=== PATIENT | male | born 1960 | race Caucasian/White ===

== ENCOUNTER → 2016-08-29 | Outpatient (REF) | payer BC, OTHER ==
[~2016-08-29] MED LIST: ASPI1TAB PO; ATOR1TAB18 PO; CELE-19 PO; HYDR-2808 PO; IBUP600T; MULTIVIT PO; OMEP40CA2 PO; PAIN325T OR; PERC5TAB8 OR; PRIL40CA OR; ZOCO40TA OR
[2016-08-29 12:44] LABS: ALBUMIN 4.3 GM/DL (3.2-5.2); ALBUMIN/GLOBULIN RATIO 1.39 (1.00-1.93); ALKALINE PHOSPHATASE 79 U/L (45-117); ALT/SGPT 62 U/L (12-78); ANION GAP 10 MEQ/L (8-16); AST/SGOT 25 U/L (15-37); BILIRUBIN,TOTAL 0.5 MG/DL (0.2-1.0); BLOOD UREA NITROGEN 18 MG/DL (7-18); CALCIUM LEVEL 9.3 MG/DL (8.5-10.1); CARBON DIOXIDE LEVEL 29 MEQ/L (21-32); CHLORIDE LEVEL 104 MEQ/L (98-107); CHOLESTEROL LEVEL 180 MG/DL (<200); CREATININE FOR GFR 0.95 MG/DL (0.70-1.30); GLOMERULAR FILTRATION RATE > 60.0 (>56); GLUCOSE, FASTING 86 MG/DL (70-105); SODIUM LEVEL 143 MEQ/L (136-145); TOTAL PROTEIN 7.4 GM/DL (6.4-8.2); TRIGLYCERIDES LEVEL 107 MG/DL (<150)
== END ==
LOC: M SFHCPLAZ 07:51
PROVIDERS: ATTEND Family Medicine
DX: E78.2 Mixed hyperlipidemia (principal)

== ENCOUNTER → 2017-03-26 | Outpatient (REF) | payer BC ==
[~2017-03-26] MED LIST changes: -ATOR1TAB18 PO; +ATOR80TA59 PO; -CELE-19 PO; +CELE1CAP4 PO
[2017-03-26 14:05] LABS: BASO # 0.1 10^3/uL (0.0-0.2); BASO % 0.9 % (0.0-1.0); EOS # 0.1 10^3/uL (0.0-0.50); EOS % 1.3 % (0.0-3.0); IMMATURE GRANULOCYTE % 0.7 % (0-0); LYMPH # 2.2 10^3/uL (1.5-4.5); LYMPH % 28.6 % (24.0-44.0); MEAN CORPUSCULAR HEMOGLOBIN 28.7 pg (27.0-33.0); MEAN CORPUSCULAR HGB CONC 32.2 g/dl (32.0-36.5); MEAN CORPUSCULAR VOLUME 89.4 fl (80.0-96.0); MONO # 0.7 10^3/uL (0.0-0.8); MONO % 9.2 % (0.0-5.0); NEUTROPHILS # 4.6 10^3/uL (1.8-7.7); NEUTROPHILS % 59.3 % (36.0-66.0); PLATELET COUNT, AUTOMATED 304 10^3/uL (150-450); RED CELL DISTRIBUTION WIDTH 12.9 % (11.5-14.5); WHITE BLOOD COUNT 7.7 10^3/uL (4.0-10.0)
[2017-03-26 14:35] LABS: ALBUMIN 4.2 GM/DL (3.2-5.2); ALBUMIN/GLOBULIN RATIO 1.31 (1.00-1.93); ALKALINE PHOSPHATASE 75 U/L (45-117); ALT/SGPT 57 U/L (12-78); ANION GAP 8 MEQ/L (8-16); AST/SGOT 26 U/L (15-37); BILIRUBIN,TOTAL 0.6 MG/DL (0.2-1.0); BLOOD UREA NITROGEN 25 MG/DL (7-18); CALCIUM LEVEL 9.7 MG/DL (8.5-10.1); CARBON DIOXIDE LEVEL 29 MEQ/L (21-32); CHLORIDE LEVEL 103 MEQ/L (98-107); CREATININE FOR GFR 0.83 MG/DL (0.70-1.30); FREE T4 1.12 NG/DL (0.76-1.46); GLOMERULAR FILTRATION RATE > 60.0 (>56); GLUCOSE, FASTING 87 MG/DL (70-105); POTASSIUM SERUM 4.6 MEQ/L (3.5-5.1); SODIUM LEVEL 140 MEQ/L (136-145); TOTAL PROTEIN 7.4 GM/DL (6.4-8.2)
== END ==
LOC: M SFHCPLAZ 08:43
PROVIDERS: ATTEND Family Medicine
DX: N18.2 Chronic kidney disease, stage 2 (mild) (principal); E78.5 Hyperlipidemia, unspecified; R73.01 Impaired fasting glucose; E29.1 Testicular hypofunction; N40.1 Benign prostatic hyperplasia with lower urinary tract symptoms

== ENCOUNTER → 2017-08-01 | Outpatient (CLI) | payer BC | LOC: M RAD 10:48 | DX: Z96.641 Presence of right artificial hip joint (principal) ==

== ENCOUNTER → 2017-10-17 | Outpatient (REF) | payer BC ==
[2017-10-17 12:15] LABS: BASO # 0.1 10^3/uL (0.0-0.2); BASO % 0.8 % (0.0-1.0); EOS # 0.1 10^3/uL (0.0-0.50); EOS % 1.5 % (0.0-3.0); HEMATOCRIT 46.7 % (42.0-52.0); HEMOGLOBIN 15.2 g/dl (13.5-17.5); IMMATURE GRANULOCYTE % 0.5 % (0-3.0); LYMPH # 1.6 10^3/uL (1.5-4.5); LYMPH % 18.2 % (24.0-44.0); MEAN CORPUSCULAR HEMOGLOBIN 28.4 pg (27.0-33.0); MEAN CORPUSCULAR HGB CONC 32.5 g/dl (32.0-36.5); MEAN CORPUSCULAR VOLUME 87.3 fl (80.0-96.0); MONO # 0.8 10^3/uL (0.0-0.8); MONO % 9.2 % (0.0-5.0); NEUTROPHILS % 69.8 % (36.0-66.0); PLATELET COUNT, AUTOMATED 313 10^3/uL (150-450); RED BLOOD COUNT 5.35 10^6/uL (4.30-6.10); RED CELL DISTRIBUTION WIDTH 12.7 % (11.5-14.5); WHITE BLOOD COUNT 8.6 10^3/uL (4.0-10.0)
[2017-10-17 12:59] LABS: ALBUMIN 4.3 GM/DL (3.2-5.2); ALBUMIN/GLOBULIN RATIO 1.16 (1.00-1.93); ALKALINE PHOSPHATASE 96 U/L (45-117); ALT/SGPT 56 U/L (12-78); ANION GAP 5 MEQ/L (8-16); AST/SGOT 25 U/L (7-37); BILIRUBIN,TOTAL 0.8 MG/DL (0.2-1.0); BLOOD UREA NITROGEN 21 MG/DL (7-18); CALCIUM LEVEL 9.5 MG/DL (8.5-10.1); CARBON DIOXIDE LEVEL 30 MEQ/L (21-32); CHLORIDE LEVEL 106 MEQ/L (98-107); CHOLESTEROL LEVEL 215 MG/DL (<200); CHOLESTEROL RISK RATIO 4.134 (<5); CREATININE FOR GFR 0.95 MG/DL (0.70-1.30); GLOMERULAR FILTRATION RATE > 60.0 (>56); GLUCOSE, FASTING 91 MG/DL (70-100); HDL CHOLESTEROL 52 MG/DL (>40); LDL CHOLESTEROL 139.8 MG/DL (<100); MAGNESIUM LEVEL 2.3 MG/DL (1.8-2.4); NON-HDL-C 163 MG/DL; POTASSIUM SERUM 4.7 MEQ/L (3.5-5.1); SODIUM LEVEL 141 MEQ/L (136-145); TRIGLYCERIDES LEVEL 116 MG/DL (<150)
[2017-10-17 14:15] LABS: ESTIMATED AVERAGE GLUCOSE 114 MG/DL (60-110); HEMOGLOBIN A1c 5.6 %
[2017-10-18 14:13] LABS: INSULIN LEVEL 13.1 uIU/mL (2.6-24.9)
== END ==
LOC: M SFHCPLAZ 09:44
DX: E78.2 Mixed hyperlipidemia (principal); I10 Essential (primary) hypertension
CPT/HCPCS: 83525

== ENCOUNTER → 2017-10-25 | Outpatient (REF) | payer BC | LOC: M SFHCPLAZ 16:55 | DX: L82.1 Other seborrheic keratosis (principal) | CPT/HCPCS: 88305 ==

== ENCOUNTER 2018-01-29 07:27 | Day surgery (SDC) | payer BC ==
[2018-01-29] MEDS: NS 1,000 ML IV (06:00)
[~2018-01-29 07:27] MED LIST changes: -ASPI1TAB PO; -ATOR80TA59 PO; -CELE1CAP4 PO; -HYDR-2808 PO; -IBUP600T; +LIDOCAINE 2% MDV 20 ML VIAL As Ordered; -MULTIVIT PO; -OMEP40CA2 PO; -PAIN325T OR; -PERC5TAB8 OR; -PRIL40CA OR; +PROPOFOL 200 MG/20 ML VIAL As Ordered; -ZOCO40TA OR
== END 2018-01-29 09:40 | disposition home or self-care (01) ==
LOC: M OPP 07:27
DX: Z12.11 Encounter for screening for malignant neoplasm of colon (principal); Z80.0 Family history of malignant neoplasm of digestive organs; K64.0 First degree hemorrhoids; K57.30 Diverticulosis of large intestine without perforation or abscess without bleeding; R12 Heartburn; K22.8 Other specified diseases of esophagus; K44.9 Diaphragmatic hernia without obstruction or gangrene; K22.70 Barrett's esophagus without dysplasia; I10 Essential (primary) hypertension; E78.5 Hyperlipidemia, unspecified; K21.9 Gastro-esophageal reflux disease without esophagitis; M19.90 Unspecified osteoarthritis, unspecified site; G47.30 Sleep apnea, unspecified; R06.83 Snoring; Z96.641 Presence of right artificial hip joint; Z79.899 Other long term (current) drug therapy; Z87.891 Personal history of nicotine dependence
CPT/HCPCS: G0105

== ENCOUNTER → 2018-03-25 | Outpatient (REF) | payer BC ==
[2018-03-25 11:35] LABS: ALBUMIN 4.1 GM/DL (3.2-5.2); ALBUMIN/GLOBULIN RATIO 1.24 (1.00-1.93); ALKALINE PHOSPHATASE 77 U/L (45-117); ALT/SGPT 69 U/L (12-78); ANION GAP 7 MEQ/L (8-16); AST/SGOT 22 U/L (7-37); BILIRUBIN,TOTAL 0.4 MG/DL (0.2-1.0); BLOOD UREA NITROGEN 25 MG/DL (7-18); C REACTIVE PROTEIN QUANTITATIV < 0.30 MG/DL (0.00-0.30); CALCIUM LEVEL 9.6 MG/DL (8.5-10.1); CARBON DIOXIDE LEVEL 31 MEQ/L (21-32); CHLORIDE LEVEL 104 MEQ/L (98-107); CHOLESTEROL LEVEL 172 MG/DL (<200); CHOLESTEROL RISK RATIO 2.866 (<5); CPK CREATINE PHOSPHOKINASE 158 U/L (39-308); CREATININE FOR GFR 0.87 MG/DL (0.70-1.30); GLOMERULAR FILTRATION RATE > 60.0 (>56); GLUCOSE, FASTING 87 MG/DL (70-100); HDL CHOLESTEROL 60 MG/DL (>40); LDL CHOLESTEROL 88 MG/DL (<100); NON-HDL-C 112 MG/DL; POTASSIUM SERUM 4.7 MEQ/L (3.5-5.1); PROSTATIC SPECIFIC AG MONITOR 0.71 NG/ML (< 4.0); SODIUM LEVEL 142 MEQ/L (136-145); TOTAL PROTEIN 7.4 GM/DL (6.4-8.2); TRIGLYCERIDES LEVEL 121 MG/DL (<150)
[2018-03-25 11:42] LABS: ESTIMATED AVERAGE GLUCOSE 120 MG/DL (60-110); HEMOGLOBIN A1c 5.8 %
== END ==
LOC: M SFHCPLAZ 07:51
DX: E78.5 Hyperlipidemia, unspecified (principal); R73.01 Impaired fasting glucose; N40.1 Benign prostatic hyperplasia with lower urinary tract symptoms
CPT/HCPCS: 82550

== ENCOUNTER → 2018-04-04 | Outpatient (CLI) | payer BC | LOC: M SLEEP HO 09:14 | DX: G47.33 Obstructive sleep apnea (adult) (pediatric) (principal) | CPT/HCPCS: G0399 ==

== ENCOUNTER → 2018-08-15 | Outpatient (CLI) | payer BC ==
[~2018-08-15] MED LIST changes: +ASPI1TAB PO; +ATOR80TA59 PO; +CELE1CAP4 PO; +HYDR-2808 PO; +IBUP600T; -LIDOCAINE 2% MDV 20 ML VIAL As Ordered; +MULTIVIT PO; +OMEP40CA2 PO; +PAIN325T OR; +PERC5TAB8 OR; +PRIL40CA OR; -PROPOFOL 200 MG/20 ML VIAL As Ordered; +ZOCO40TA OR
--- NOTE | 2018-08-19 10:41 | SLEEPCENT ---
DATE OF PROCEDURE: 08/15/2018 ORDERED BY: МАРИНА Gonsalez Nocturnal polysomnography was performed for the titration of pressure therapy in this patient with a clinical diagnosis of obstructive sleep apnea syndrome confirmed by home testing revealing a respiratory event index of 19.4. For testing the patient was fit with a ResMed AirFit F30 full face mask of medium size; 5 cm of water pressure were applied to the circuit and the lights were extinguished. 8 hours and 31 minutes of data were reviewed. There were 422 minutes of sleep identified. Sleep latency was short at 6.5 minutes. Rapid eye movement (REM) latency was normal at 74 minutes. Sleep architecture was fair with 4 REM cycles noted. Overall sleep efficiency 83.7%. The electrocardiogram showed a sinus rhythm with an average heart rate of 62 beats per minute. EEG showed fairly normal waveforms for awake and sleep stages. Respiratory events prompted an increase in CPAP pressure. Optimal pressure was found to be 8 cm of water with which the patient slept through REM without respiratory event or oxygen desaturation with some minimal limb activity noted and movement arousal index of 6.7. IMPRESSION: Obstructive sleep apnea syndrome (G47.33). RECOMMENDATIONS: Nightly use of pressure therapy 8 cm of water.
== END ==
LOC: M SLEEP 19:35
PROVIDERS: ATTEND Nurse Practitioner Family
DX: G47.33 Obstructive sleep apnea (adult) (pediatric) (principal)

== ENCOUNTER → 2018-10-08 | Outpatient (REF) | payer BC ==
[~2018-10-08] MED LIST changes: -ASPI1TAB PO; +ASPI81TA26 PO
[2018-10-08 10:47] LABS: BASO # 0.1 10^3/uL (0.0-0.2); BASO % 1.1 % (0.0-1.0); EOS # 0.2 10^3/uL (0.0-0.50); EOS % 2.2 % (0.0-3.0); HEMATOCRIT 47.3 % (42.0-52.0); HEMOGLOBIN 15.3 g/dl (13.5-17.5); LYMPH # 1.9 10^3/uL (1.5-4.5); MEAN CORPUSCULAR HEMOGLOBIN 28.7 pg (27.0-33.0); MEAN CORPUSCULAR HGB CONC 32.3 g/dl (32.0-36.5); MEAN CORPUSCULAR VOLUME 88.7 fl (80.0-96.0); MONO # 0.8 10^3/uL (0.0-0.8); MONO % 10.1 % (0.0-5.0); NEUTROPHILS # 4.6 10^3/uL (1.8-7.7); NEUTROPHILS % 61.3 % (36.0-66.0); PLATELET COUNT, AUTOMATED 342 10^3/uL (150-450); RED BLOOD COUNT 5.33 10^6/uL (4.30-6.10); WHITE BLOOD COUNT 7.4 10^3/uL (4.0-10.0)
[2018-10-08 11:01] LABS: HEMOGLOBIN A1c 5.9 %
[2018-10-08 11:18] LABS: ALBUMIN 4.7 GM/DL (3.2-5.2); ALT/SGPT 84 U/L (12-78); BILIRUBIN,TOTAL 0.5 MG/DL (0.2-1.0); BLOOD UREA NITROGEN 23 MG/DL (7-18); CALCIUM LEVEL 9.6 MG/DL (8.8-10.2); CARBON DIOXIDE LEVEL 33 MEQ/L (21-32); CHLORIDE LEVEL 102 MEQ/L (98-107); CREATININE FOR GFR 0.93 MG/DL (0.70-1.30); GLOMERULAR FILTRATION RATE > 60.0 (>49); GLUCOSE, FASTING 90 MG/DL (70-100); POTASSIUM SERUM 4.9 MEQ/L (3.5-5.1); SODIUM LEVEL 139 MEQ/L (136-145); TOTAL PROTEIN 7.9 GM/DL (6.4-8.2)
== END ==
LOC: M SFHCPLAZ 08:28
PROVIDERS: ATTEND Family Medicine
DX: N18.2 Chronic kidney disease, stage 2 (mild) (principal); R73.01 Impaired fasting glucose

== ENCOUNTER → 2019-03-02 | Outpatient (CLI) | payer BC ==
[~2019-03-02] MED LIST changes: -OMEP40CA2 PO; +OMEP40CA97 PO
--- NOTE | 2019-03-06 09:53 | SLEEPHOME ---
DATE OF STUDY: 03/02/2019 ORDERED BY: Maame Gottlieb Diagnostic home sleep testing was performed due to concern for the obstructive sleep apnea syndrome in this patient with a history of excessive somnolence and nonrestorative sleep who has comorbidities of hyperlipidemia and a prior history of obstructive sleep apnea syndrome. For testing, a nocturnal T3 respiratory monitoring device was used. Continuous record was made of pulse, oxygen saturation, airflow, chest and abdominal strain and body position. 9 hours and 59 minutes of data were reviewed. There were 7 hours and 15 minutes marked as time in bed. During the interval marked time in bed, there were 131 respiratory events identified of 10 seconds in duration or greater for a respiratory event index of 18. The events were primarily obstructive. Baseline pulse rate 66, pulse rate ranged 41-112. Baseline saturation was 92% and saturations fell to 81%. Testing was performed in both the supine and nonsupine positions. IMPRESSION: Abnormal home sleep testing with repetitive respiratory events and oxygen desaturations to 81% with a respiratory event index of 18 is consistent with the obstructive sleep apnea syndrome. RECOMMENDATION: The patient should be encouraged to undergo formal sleep evaluation.
== END ==
LOC: M SLEEP HO 13:51
PROVIDERS: ATTEND Nurse Practitioner Family
DX: G47.33 Obstructive sleep apnea (adult) (pediatric) (principal)

== ENCOUNTER → 2019-04-17 | Outpatient (CLI) | payer BC ==
--- NOTE | 2019-04-21 16:46 | SLEEPCENT ---
DATE OF PROCEDURE: 04/17/2019 ORDERED BY: Maame Gottlieb Nocturnal polysomnography was performed for the titration of pressure therapy in this patient with a clinical diagnosis of obstructive sleep apnea syndrome confirmed by home testing revealing respiratory event index of 18. For testing the patient was fit with a ResMed air fit F30 full face mask of medium size 5 cm of water pressure applied circuit the lights were extinguished. 8 hours and 54 minutes of data were reviewed. There were 466 minutes of sleep identified. Sleep latency was prolonged at 35 minutes. REM latency was short at 56-minute sleep architecture was good with four REM cycles. Overall sleep efficiency 8.5% the patient's electrocardiogram showed sinus rhythm with an average heart rate of 60 beats per minute. EEG showed normal waveforms for awake and sleep. Respiratory events were reasonably palliated with C-PAP at a pressure of +9. There was significant limb leads but arousals all occurred only 2.1 times per hour. IMPRESSION: Obstructive sleep apnea syndrome (G47.33) RECOMMENDATIONS: Nightly use of pressure therapy in 9 cm of water.
== END ==
LOC: M SLEEP 19:37
PROVIDERS: ATTEND Internal Medicine Pulmonary Disease
DX: G47.33 Obstructive sleep apnea (adult) (pediatric) (principal)

== ENCOUNTER → 2019-09-16 | Outpatient (REF) | payer BC ==
[2019-09-16 10:22] LABS: APPEARANCE, URINE CLEAR (CLEAR); BACTERIA, URINE AUTO NEGATIVE (NEGATIVE); BILIRUBIN, URINE AUTO NEGATIVE (NEGATIVE); BLOOD, URINE BLOOD NEGATIVE (NEGATIVE); COLOR, URINE YELLOW (YELLOW); GLUCOSE, URINE (UA) AUTO NEGATIVE (NEGATIVE); KETONE, URINE AUTO NEGATIVE (NEGATIVE); LEUKOCYTE ESTERASE, URINE AUTO NEGATIVE (NEGATIVE); NITRITE, URINE AUTO NEGATIVE (NEGATIVE); PROTEIN, URINE AUTO NEGATIVE (NEGATIVE); RBC, URINE AUTO 0 /HPF (0-3); SPECIFIC GRAVITY URINE AUTO 1.021 (1.002-1.035); SQUAMOUS EPITHELIAL CELL UR AU 0 /HPF (0-6); UROBILINOGEN, URINE AUTO 0.2 mg/dL (0.0-2.0); WBC, URINE AUTO 0 /HPF (0-3)
[2019-09-16 10:26] LABS: HEMOGLOBIN A1c 5.6 %
[2019-09-16 10:41] LABS: CREATININE, URINE 91.3 MG/DL; MALB URINE SIEMENS 24.3 MG/L; MAU/CREAT RATIO 26.6 MCG/MG (0.0-30.0)
[2019-09-16 10:44] LABS: ALBUMIN 4.2 GM/DL (3.2-5.2); ALT/SGPT 83 U/L (12-78); BILIRUBIN,TOTAL 0.5 MG/DL (0.2-1.0); BLOOD UREA NITROGEN 26 MG/DL (7-18); CALCIUM LEVEL 9.8 MG/DL (8.8-10.2); CARBON DIOXIDE LEVEL 31 MEQ/L (21-32); CHLORIDE LEVEL 103 MEQ/L (98-107); CHOLESTEROL LEVEL 281 MG/DL (<200); FREE T4 1.04 NG/DL (0.76-1.46); GLOMERULAR FILTRATION RATE > 60.0 (>49); GLUCOSE, FASTING 103 MG/DL (70-100); HDL CHOLESTEROL 42 MG/DL (>40); LDL CHOLESTEROL 189 MG/DL (<100); NON-HDL-C 239 MG/DL; POTASSIUM SERUM 5.2 MEQ/L (3.5-5.1); SODIUM LEVEL 137 MEQ/L (136-145); TOTAL PROTEIN 7.8 GM/DL (6.4-8.2); TRIGLYCERIDES LEVEL 251 MG/DL (<150)
[2019-09-17 07:54] LABS: ALBUMIN 5.02 GM/DL (3.29-5.55); ALBUMIN % 64.4 % (55.8-66.1); ALPHA-1-GLOBULIN % 3.4 % (2.9-4.9); ALPHA-2-GLOBULINS % 11.7 % (7.1-11.8); BETA-1-GLOBULINS % 5.4 % (4.7-7.2); BETA-2-GLOBULINS % 5.1 % (3.2-6.5)
[2019-09-17 07:55] LABS: ALPHA-1-GLOBULINS 0.27 GM/DL (0.17-0.41); ALPHA-2-GLOBULINS 0.91 GM/DL (0.42-0.99); BETA-1-GLOBULINS 0.42 GM/DL (0.28-0.60); GAMMA GLOBULINS 0.78 GM/DL (0.65-1.58)
[2019-09-17 08:06] LABS: INSULIN LEVEL 38.2 uIU/mL (2.6-24.9)
== END ==
LOC: M SFHCPLAZ 08:31
PROVIDERS: ATTEND Family Medicine
DX: R73.01 Impaired fasting glucose (principal); Z12.5 Encounter for screening for malignant neoplasm of prostate; E78.5 Hyperlipidemia, unspecified; I10 Essential (primary) hypertension
CPT/HCPCS: 80053; 80061; 81001; 82043; 83036; 83525; 83883; 84165; 84439; 84443; G0103

== ENCOUNTER → 2020-04-04 | Outpatient (REF) | payer BC ==
[~2020-04-04] MED LIST changes: -HYDR-2808 PO; +HYDR-4429 PO
[2020-04-04 14:00] LABS: APPEARANCE, URINE CLEAR (CLEAR); BACTERIA, URINE AUTO NEGATIVE (NEGATIVE); BILIRUBIN, URINE AUTO NEGATIVE (NEGATIVE); BLOOD, URINE BLOOD NEGATIVE (NEGATIVE); COLOR, URINE YELLOW (YELLOW); GLUCOSE, URINE (UA) AUTO NEGATIVE (NEGATIVE); KETONE, URINE AUTO NEGATIVE (NEGATIVE); LEUKOCYTE ESTERASE, URINE AUTO NEGATIVE (NEGATIVE); NITRITE, URINE AUTO NEGATIVE (NEGATIVE); PROTEIN, URINE AUTO NEGATIVE (NEGATIVE); RBC, URINE AUTO 0 /HPF (0-3); SPECIFIC GRAVITY URINE AUTO 1.016 (1.002-1.035); SQUAMOUS EPITHELIAL CELL UR AU 0 /HPF (0-6); UROBILINOGEN, URINE AUTO 0.2 mg/dL (0.0-2.0); WBC, URINE AUTO 0 /HPF (0-3)
[2020-04-04 14:06] LABS: BASO # 0.1 10^3/uL (0.0-0.2); BASO % 0.9 % (0.0-1.0); EOS # 0.1 10^3/uL (0.0-0.5); EOS % 1.7 % (0.0-3.0); HEMATOCRIT 48.7 % (42.0-52.0); LYMPH # 2.3 10^3/uL (1.5-5.0); LYMPH % 26.8 % (24.0-44.0); MEAN CORPUSCULAR HEMOGLOBIN 26.9 pg (27.0-33.0); MEAN CORPUSCULAR HGB CONC 30.8 g/dl (32.0-36.5); MEAN CORPUSCULAR VOLUME 87.3 fl (80.0-96.0); MONO # 0.8 10^3/uL (0.0-0.8); MONO % 9.8 % (0.0-5.0); NEUTROPHILS # 5.1 10^3/uL (1.5-8.5); PLATELET COUNT, AUTOMATED 350 10^3/uL (150-450); RED BLOOD COUNT 5.58 10^6/uL (4.30-6.10); WHITE BLOOD COUNT 8.5 10^3/uL (4.0-10.0)
[2020-04-04 14:21] LABS: HEMOGLOBIN A1c 5.4 %
[2020-04-04 14:36] LABS: ALBUMIN 4.4 GM/DL (3.2-5.2); ALT/SGPT 77 U/L (12-78); BILIRUBIN,TOTAL 0.3 MG/DL (0.2-1.0); BLOOD UREA NITROGEN 17 MG/DL (7-18); CARBON DIOXIDE LEVEL 29 MEQ/L (21-32); CHLORIDE LEVEL 102 MEQ/L (98-107); CREATININE FOR GFR 0.94 MG/DL (0.70-1.30); GLOMERULAR FILTRATION RATE > 60.0 (>49); GLUCOSE, FASTING 91 MG/DL (70-100); NT-PRO BNP 23 PG/ML (<125); POTASSIUM SERUM 5.4 MEQ/L (3.5-5.1); SODIUM LEVEL 138 MEQ/L (136-145); TOTAL PROTEIN 7.8 GM/DL (6.4-8.2)
[2020-04-04 14:47] LABS: CREATININE, URINE 71.3 MG/DL; MALB URINE SIEMENS 12.7 MG/L; MAU/CREAT RATIO 17.8 MCG/MG (0.0-30.0)
== END ==
LOC: M SFHCPLAZ 11:05
PROVIDERS: ATTEND Family Medicine
DX: R73.01 Impaired fasting glucose (principal); I10 Essential (primary) hypertension

== ENCOUNTER → 2020-05-04 | Outpatient (CLI) | payer BC ==
[~2020-05-04] MED LIST changes: +TELM1TAB33 PO
== END ==
LOC: M LABSMTC 12:08
PROVIDERS: ATTEND Anesthesiology
DX: Z01.812 Encounter for preprocedural laboratory examination (principal); Z20.828 Contact with and (suspected) exposure to other viral communicable diseases

== ENCOUNTER 2020-05-09 07:51 | Day surgery (SDC) | payer BC ==
[~2020-05-09] VITALS: Ht 177.8 cm; Wt 103.4 kg
[~2020-05-09 07:51] MED LIST changes: +LIDOCAINE 2% 100MG/5ML SDV (FOR ANES.) As Ordered ONE; +NS 1,000 ML IV ONE; +propofoL 200 MG/20 ML VIAL As Ordered ONE
--- NOTE | 2020-05-09 09:35 | ROOR ---
Patient Name: Gregory Villalpando Procedure Date: 05/09/2020 9:18 AM Date of : 1960 Age: 60 Room: [facility] Gender: Male Note Status: Finalized Procedure: Upper Endoscopy + Biopsies Indications: Follow-up of Lau's esophagus Providers: Odell Quintero MD Referring MD: Mathew Rogers MD Requesting Provider: Medicines: Monitored Anesthesia Care Complications: No immediate complications. Procedure: Pre-Anesthesia Assessment: - The heart rate, respiratory rate, oxygen saturations, blood pressure, adequacy of pulmonary ventilation, and response to care were monitored throughout the procedure. The Endoscope was introduced through the mouth, and advanced to the second part of duodenum. The upper GI endoscopy was accomplished without difficulty. The patient tolerated the procedure well. Findings: The Z-line was variable and was found 35 cm from the incisors. Multiple biopsies were obtained with cold forceps for evaluation to rule out Lau's Esophagus randomly at the gastroesophageal junction. A large hiatal hernia was present. No other significant abnormalities were identified in a careful examination of the stomach. The exam of the duodenum was otherwise normal. Impression: - Z-line variable, 35 cm from the incisors. - Large hiatal hernia. - Multiple biopsies were obtained at the gastroesophageal junction. - The examination was otherwise normal. Recommendation: - Patient has a contact number available for emergencies. The signs and symptoms of potential delayed complications were discussed with the patient. Return to normal activities tomorrow. Written discharge instructions were provided to the patient. - High fiber diet. - Discharge patient to home. - Follow an antireflux regimen. - Continue present medications. - Await pathology results. - Telephone GI clinic for pathology results in 1 week. - Return to referring physician. - Repeat upper endoscopy in 3 years for surveillance of Lau's esophagus. - The findings and recommendations were discussed with the patient. Procedure Code(s): --- Professional --- 05874, Esophagogastroduodenoscopy, flexible, transoral; with biopsy, single or multiple Diagnosis Code(s): --- Professional --- K22.8, Other specified diseases of esophagus K44.9, Diaphragmatic hernia without obstruction or gangrene K22.70, 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 CPT copyright 2019 [employer] [place] [employer]. All rights reserved. The codes documented in this report are preliminary and upon artificial marble worker review may be revised to meet current compliance requirements. Odell Quintero MD Odell Quintero MD 05/09/2020 9:35:00 AM Electronically signed by Odell Quintero MD Number of Addenda: 0 Note Initiated On: 05/09/2020 9:18 AM Estimated Blood Loss: Estimated blood loss: none.
[2020-05-09 10:03] VITALS: BP 136/84
== END 2020-05-09 10:10 | disposition home or self-care (01) ==
LOC: M OPP 07:51
PROVIDERS: ATTEND Internal Medicine Gastroenterology
DX: K22.8 Other specified diseases of esophagus (principal); K44.9 Diaphragmatic hernia without obstruction or gangrene; K22.70 Barrett's esophagus without dysplasia; R12 Heartburn; Z79.82 Long term (current) use of aspirin; Z79.899 Other long term (current) drug therapy; Z87.891 Personal history of nicotine dependence

== ENCOUNTER → 2020-10-04 | Outpatient (CLI) | payer BC ==
[~2020-10-04] MED LIST changes: -LIDOCAINE 2% 100MG/5ML SDV (FOR ANES.) As Ordered ONE; -NS 1,000 ML IV ONE; -propofoL 200 MG/20 ML VIAL As Ordered ONE
--- NOTE | 2020-10-05 14:30 | SLEEPHOME ---
DATE: 10/04/2020 ORDERED BY: Mathew Rogers MD Diagnostic home sleep testing was performed due to concern for the obstructive sleep apnea syndrome. For testing, a nocturnal T3 respiratory monitoring device was used. Continuous record was made of pulse, oxygen saturation, air flow, chest and abdominal strain, and body position. Nine hours and 59 minutes of data were reviewed. There were 5 hours and 28 minutes marked as time in bed. During the interval marked time in bed, there were 149 respiratory events identified of 10 seconds in duration or greater for a respiratory event index of 27.1. The events were obstructive. Baseline pulse rate is 67. Pulse rate ranged 48 to 156. Baseline saturation was 93%. Saturations fell to 81% and testing was performed in both the supine and nonsupine positions. IMPRESSION: Abnormal home sleep testing with repetitive respiratory events and oxygen desaturations to 81% with a respiratory event index of 27.1 is consistent with the obstructive sleep apnea syndrome. RECOMMENDATION: The patient should be encouraged to undergo a formal sleep evaluation.
== END ==
LOC: M SLEEP HO 09:27
PROVIDERS: ATTEND Family Medicine
DX: G47.33 Obstructive sleep apnea (adult) (pediatric) (principal)

== ENCOUNTER → 2020-11-23 | Outpatient (REF) | payer BC ==
[2020-11-23 11:20] LABS: BASO # 0.1 10^3/uL (0.0-0.2); BASO % 1.3 % (0.0-1.0); EOS # 0.2 10^3/uL (0.0-0.5); HEMATOCRIT 47.1 % (42.0-52.0); LYMPH # 2.1 10^3/uL (1.5-5.0); LYMPH % 33.3 % (24.0-44.0); MEAN CORPUSCULAR HGB CONC 31.8 g/dl (32.0-36.5); MONO # 0.7 10^3/uL (0.0-0.8); MONO % 10.9 % (2.0-8.0); NEUTROPHILS # 3.3 10^3/uL (1.5-8.5); NEUTROPHILS % 51.3 % (36.0-66.0); PLATELET COUNT, AUTOMATED 320 10^3/uL (150-450); RED BLOOD COUNT 5.35 10^6/uL (4.30-6.10); WHITE BLOOD COUNT 6.3 10^3/uL (4.0-10.0)
[2020-11-23 11:33] LABS: INR 0.9; PARTIAL THROMBOPLASTIN TIME 35.4 SECONDS (24.2-38.5); PROTHROMBIN TIME 12.3 SECONDS (12.5-14.3)
[2020-11-23 12:16] LABS: ALBUMIN 4.2 GM/DL (3.2-5.2); ALT/SGPT 69 U/L (12-78); BILIRUBIN,TOTAL 0.5 MG/DL (0.2-1.0); BLOOD UREA NITROGEN 20 MG/DL (7-18); CALCIUM LEVEL 9.5 MG/DL (8.8-10.2); CARBON DIOXIDE LEVEL 28 MEQ/L (21-32); CHLORIDE LEVEL 103 MEQ/L (98-107); CHOLESTEROL LEVEL 168 MG/DL (<200); CPK CREATINE PHOSPHOKINASE 214 U/L (39-308); CREATININE FOR GFR 0.89 MG/DL (0.70-1.30); GLOMERULAR FILTRATION RATE > 60.0 (>49); GLUCOSE, FASTING 90 MG/DL (70-100); HDL CHOLESTEROL 50 MG/DL (>40); LDL CHOLESTEROL 84 MG/DL (<100); MAGNESIUM LEVEL 2.5 MG/DL (1.8-2.4); NON-HDL-C 118 MG/DL; POTASSIUM SERUM 4.6 MEQ/L (3.5-5.1); SODIUM LEVEL 139 MEQ/L (136-145); TOTAL PROTEIN 7.5 GM/DL (6.4-8.2); TRIGLYCERIDES LEVEL 170 MG/DL (<150)
[2020-11-23 20:04] LABS: HEMOGLOBIN A1c 5.6 %
== END ==
LOC: M SFHCPLAZ 08:27
PROVIDERS: ATTEND Family Medicine
DX: I10 Essential (primary) hypertension (principal); R73.01 Impaired fasting glucose; Z12.5 Encounter for screening for malignant neoplasm of prostate; E78.5 Hyperlipidemia, unspecified; G47.33 Obstructive sleep apnea (adult) (pediatric)

== ENCOUNTER → 2021-05-17 | Outpatient (CLI) | payer BC ==
[~2021-05-17] MED LIST changes: +HYDR-3713 PO; +OMEP40CA4 PO; -OMEP40CA97 PO; +ROSU40TA4 PO; +TELM1TAB37 PO
== END ==
LOC: M LABSMTC 09:39
PROVIDERS: ATTEND Anesthesiology
DX: Z01.812 Encounter for preprocedural laboratory examination (principal)

== ENCOUNTER 2021-05-22 08:16 | Day surgery (SDC) | payer BC ==
[~2021-05-22] VITALS: Ht 177.8 cm; Wt 98.9 kg
[~2021-05-22 08:16] MED LIST changes: +LIDOCAINE 2% 100MG/5ML SDV (FOR ANES.) As Ordered ONE; +NS 1,000 ML IV ONE; +propofoL 200 MG/20 ML VIAL As Ordered ONE
--- OUTSIDE RECORDS SUMMARY | 2021-05-22 08:20 | CCD ---
Author Author [facility] Organization [facility] Address Unknown Phone Unavailable Care Team Providers Care Room Service Runner Name Role Phone Mathew Rogers Unavailable PROBLEMS Type Condition ICD9-CM Code VWT19-ZK Code Onset Dates Condition S tatus W/U Status Risk SNOMED Code Notes Problem Osteoarthritis of knees, bilateral M17.0 Activ e confirmed 760601201 Problem IFG (impaired fasting glucose) R73.01 Active confir med 414730391 Problem Benign prostatic hypertrophy with lower urinary tract symptoms (LUTS) N40.1 Active confirmed 274780252 Problem Hyperlipidemia E78.5 Active confirmed 14294 004 Problem Overweight E66.3 Active confirmed 317252650 Problem Osteoarthritis of hands, 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 Activ e confirmed 60704331 Problem Essential hypertension I10 Active confirmed 82192294 Problem Flexural eczema L20.82 Active confirmed 5709 2006 Problem FH: colon cancer Z80.0 Active confirmed 312 484285 Problem 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 K22.70 Ac tive confirmed 574186544 Problem Colon cancer screening Z12.11 Active confirmed 203312343 Problem Daytime somnolence R40.0 Active confirmed 1 99932610278 Problem Low testosterone E29.1 Active confirmed 376 2279479531 Problem BAYLEE (obstructive sleep apnea) G47.33 Active confirm ed 00489872 Problem Prostate cancer screening Z12.5 Active confirmed 125564806 Problem Psychophysiological insomnia F51.04 Active confirme d 010531761 Problem Gastroesophageal reflux disease with 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 K21.00 Active confirmed 419662496 ALLERGIES No Known Allergies ENCOUNTERS from 1960 to 2021-03-24 Encounter Location Date Provider Diagnosis [address] [phone] [place] [address] 08 Mar, 2021 Mathew Rogers Osteoarthritis of knees, ana ateral M17.0 IMMUNIZATIONS Vaccine Route Administration Date Status COVID-19 dose #1 given elsewhere Unspecified IM Intramuscular [facility] 2020 Administered Influenza 18 yrs & older Flublok IM Intramuscular Apr 01, 2018 Administered Influenza 6mo & up Fluzone IM Intramuscular Mar 25, 2017 Admi nistered Influenza 6mo & up Fluzone IM Intramuscular Mar 10, 2012 Admi nistered Influenza 6mo & up Fluzone IM Intramuscular May 04, 2010 Admi nistered SOCIAL HISTORY Tobacco Use: Social History Observation Description Date Details (start date - stop date) Never Smoker Sex Assigned At : Social History Observation Description Sex Assigned At Unknown Audit Question Answer Notes Total Score: 3 Interpretation: Alcohol Education Language: Question Answer Notes Languages spoken: Colombian Sabianist: Question Answer Notes Sabianist 19 Adventism Sexual Hx: Question Answer Notes Had sex in the last 12 months (vaginal, oral, or anal)? Yes Have you ever had an STD? No with Women only Use protection? No Drug and Alcohol Question Answer Notes Total Score: 0 Interpretation: No problems reported Alcohol Screening: Question Answer Notes Did you have a drink containing alcohol in the past year? Ye s Points 2 Interpretation Negative How often did you have six or more drinks on one occas ion in the past year? Never (0 points) How many drinks did you have on a typica l day when you were drinking in the past year? 1 or 2 (0 points) How often did you have a drink containing alcohol in t he past year? Two to four times a month (2 points) Tobacco Use: Question Answer Notes Are you a: never smoker REASON FOR REFERRAL No Information VITAL SIGNS No information MEDICATIONS Medication SIG (Take, Route, Frequency, Duration) Notes Start Da te End Date Status Telmisartan 80 MG 1/2 tablet Orally bid for 90 day(s) Active Omeprazole 40 mg 1 capsule Orally Twice a day Active CPAP Machine as directed _ QHS, G47.3 for 9999 days Sep Active CPAP mask as directed _ QHS, G47.3 for 60 days all related supplies Sep, Active Aspirin 81 MG 1 tablet Orally Once a day Active Celecoxib 200 MG 1 capsule with food Orally once daily for 90 day(s) Active Fluticasone Propionate 0.005 % 1 application to affect ed area Externally Twice a day x 7D c flares for 90 day(s) Active CPAP mask with tubing _ QHS, G47.33 for 90 day(s) Jan, Active Rosuvastatin Calcium 40 MG 1 tablet Orally Once a day for 90 day(s) Active CPAP Machine as directed _ at bedtime, G47.33 for 999 days Jan, Active HYDROcodone-Acetaminophen 5-325 MG 1 tablet as needed Orally every 8 hrs prn/MDD # 3 for 30 day(s) Mar, Active PROCEDURES No Information RESULTS No Results REASON FOR VISIT refill MEDICAL (GENERAL) HISTORY Type Description Date Medical History hyperlipidemia 2B Medical History history of Lau's esophag itis-02/24 EGD [facility] with hiatal hernia and moderate esophagitis by biopsy without dysplasia/GERD//07/2012 EGD c low grade dysplasia therefore Halo therapy done by [facility]/07/2013, 01/2018 moderate HH c meta/s dysplasia-W s dysplasia-W Medical History obesity Medical History BAYLEE, moderate-03/2018 HST KATHE 19 c SaO2 to 81% on chronic CPAP Medical History nonalcoholic fatty liver dis ease-normal workup 11/2008, seen by liver ultrasound 08/24/ FS2 33 Medical History impaired fasting glucose Medical History hypertension-08/2009 nuclear stress test with no reversibility- Antecol/10/14/14 stress echocardiogram to 10 METS, normal wall motion, normal LVEF-low risk-[facility] Medical History WC 10/2014 L meniscal tear s/p 06/2015 art hroscopic surgery Surgical History L knee arthoscopic surgery-Faustino 07/06/15 Surgical History colonoscopy [facility]-divert iculosis and internal hemorrhoids nonbleeding 12/2012, 03/2018 Surgical History R THR-Dr. Beebe 03/13/2010 Surgical History left Achilles tendon repair 1985 Surgical History R knee arthroscopic surgery 2 ACL tear s/p football injury- [facility]on [facility]on 1974 Surgical History tonsillectomy Surgical History RTK-DR. Abbott-SOS 01/26/2020 Surgical History [id number] 12/09/20 Hospitalization History surgeries as above Goals Section No Information Health Concerns No Information MEDICAL EQUIPMENT No Information MENTAL STATUS No Information FUNCTIONAL STATUS No Information ASSESSMENTS Encounter Date Diagnosis Assessment Notes Treatment Notes Treatm ent Clinical Notes Mar, Osteoarthritis of knees, bilateral (ICD-10 - M17 .0) PLAN OF TREATMENT Medication Medication Name Sig Start Date Stop Date Telmisartan 80 MG 1/2 tablet Orally bid for 90 day(s) Rosuvastatin Calcium 40 MG 1 tablet Orally Once a day for 90 day (s) CPAP Machine as directed _ at bedtime, G47.33 for 999 days Jan, CPAP mask with tubing _ QHS, G47.33 for 90 day(s) Jan, Omeprazole 40 mg 1 capsule Orally Twice a day Aspirin 81 MG 1 tablet Orally Once a day Celecoxib 200 MG 1 capsule with food Orally once daily for 90 da y(s) Fluticasone Propionate 0.005 % 1 application to affect ed area Externally Twice a day x 7D c flares for 90 day(s) HYDROcodone-Acetaminophen 5-325 MG 1 tablet as needed Orally every 8 hrs prn/MDD # 3 for 30 day(s) Mar, Insurance Providers Payer Name Payer Address Payer Phone Insured Name Patient Relati onship to Insured Coverage Start Date Coverage End Date [employer] PPO [phone] [facility] [place] [address] YUDITH VILLALPANDO self
--- OUTSIDE RECORDS SUMMARY | 2021-05-22 08:20 | CCD | Continuity of Care Document ---
Author Author Gregory QUINTERO M.D. Organization Unknown Address [address] [place] [address] Phone [phone] Care Team Providers Care Curtain Feller Blindstitch Name Role Phone Mathew Rogers MD [facility] [phone] Problems Active Problems Provider Date Lau's esophagus Odell Quintero M.D. Onset: 03/24/20 20 Screening for malignant neoplasm of colon Odell hodgson M.D. Onset: 12/31/2017 Rectal hemorrhage Odell Quintero M.D. Onset: 12/14/19 17 Lau's esophagus Angela Figueroa Onset: 07/16/19 13 Essential hypertension Onset: 07/16/2012 Family history of malignant neoplasm of gastrointestin al tract Odell Quintero M.D. Onset: 12/11/2012 Digestive symptom Odell Quintero M.D. Onset: 12/12/19 13 Social History Type Date Description Comments Sex Unknown ETOH Use Occasionally Tobacco Use Start: Unknown End: Unknown Patient is a former smoker Allergies and adverse reactions Description No Known Drug Allergies Medications Active Medications SIG Qnty Indications Ordering Provide r Date Proctosol HC 2.5% Cream apply to rectum three times a day and after each bowel movement 56.7gm Odell Quintero M.D. 05/09/2021 Suprep Bowel Prep Kit 17.5-3.13-1.6GM/177ML Solution use as directed 354ml Odell Quintero M.D. 05/09/[address] 1 cap by mouth twice a day 180caps Odell Quintero M.D. 021 Celebrex 200mg Capsules Unknown Rosuvastatin Calcium 40mg Tablets Take One Tablet By Mouth Every Day Unknown Telmisartan 80mg Tablets Take One Tablet By Mouth Every Day Unknown Hydrocodone Bitartrate/Acetaminophen 5-325mg Tablets Take One Tablet By Mouth Every 8 Hours a s Needed Maximum Daily Dose 3 Unknown Immunizations Description No Information Available Vital Signs Date Vital Result Comment 05/09/2021 1:19pm Height 70 inches 5'10" Weight 223.00 lb BP Systolic 130 mmHg BP Diastolic 80 mmHg Heart Rate 77 /min BMI (Body Mass Index) 32.0 kg/m2 Weight 101.153 kg Body Temperature 97.7 F 03/24/2020 2:59pm Height 70 inches 5'10" Weight 224.00 lb BP Systolic 131 mmHg BP Diastolic 96 mmHg Heart Rate 85 /min BMI (Body Mass Index) 32.1 kg/m2 Weight 101.606 kg Body Temperature 98.1 F Results Description No Information Available Procedures Date Code Description Status 05/09/2021 41292 Office/Outpatient Established Mo d MDM 30-39 Min Completed Medical Devices Description No Information Available Encounters Type Date Location Provider Dx Diagnosis Office Visit 05/09/2021 1:15p Main Office Odell Quintero M.D. Z 80.0 Family history of malignant neoplasm of digestive organs K62.5 Hemorrhage of anus and rectu m K21.9 Gastro-esophageal reflux dis ease without esophagitis Assessments Date Code Description Provider 05/09/2021 Z80.0 Family history of malignant neop lasm of digestive organs Odell Quintero M.D. 05/09/2021 K62.5 Hemorrhage of anus and rectum Ge jonnathan Quintero M.D. 05/09/2021 K21.9 Gastroesophageal reflux disease Odell Quintero M.D. Plan of Treatment Future Appointment(s):* 05/17/2021 9:45 am - Alex at Main Office * 05/22/2021 10:00 am - Odell Quintero M.D. at Main Office 05/09/2021 - Odell Quintero M.D.* Z80.0 Family history of malignant neoplasm of digestive organs* Comments:* 61 yo wm who presents for a colonoscopy/egd for heartburn/rectal bleeding. No c/o abdominal pain, weight loss, change in bowel habits, or rectal bleeding. Positive family h/o colon cancer- 2 brothers. No h/o chest pain, or sob. Plan :1.Setup colonoscopy + egd.2. Informed consent given. * K62.5 Hemorrhage of anus and rectum* Comments:* 1. Schedule Colonoscopy.2.Informed consent given.3.Pt. advised to stop asa,plavix, and coumadin at least 3 to 7 days prior to the procedure. * K21.9 Gastroesophageal reflux disease* Comments:* As above. Functional Status Description No Information Available Mental Status Description No Information Available Referrals Description No Information Available
--- OUTSIDE RECORDS SUMMARY | 2021-05-22 08:20 | CCD | Summary of Care ---
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 [address] [place] [phone] Allergies No Known Active Allergiesdocumented as of this encounter (statuses as of 03/06/2021) Medications End Date Status Medication Sig Dispensed Refills Start Date Active Celecoxib 200 MG Oral Take 200 mg 0 12/09/19 2 Capsule (CeleBREX) by mouth 0 daily With food Active Omeprazole 40 MG Oral Take 40 mg by 0 12/20/19 2 Capsule Delayed Release mouth Two 0 (PRILOSEC) Times Daily Active Rosuvastatin Calcium 40 Take 40 mg by 0 MG Oral Tablet (CRESTOR) mouth daily 0 Active Daily Angela Oral Tablet Take 1 tablet 0 by mouth daily Active Telmisartan 80 MG Oral Take 80 mg by 0 08/18/ 02 Tablet (MICARDIS) mouth daily 1 Active HYDROcodone-Acetaminophen 1 tablet as 0 5-325 MG Oral Tablet needed (LORTAB) Active oxyCODONE HCl 5 MG Oral One tab PO Q8 30 tablet 0 Tablet (Roxicodone) hours PRN 1 pain, MDD 3 documented as of this encounter (statuses as of 03/06/2021) Active Problems Problem Noted Date Shoulder arthritis 12/09/2020 Primary osteoarthritis of left shoulder 11/21/2020 Overview: Formatting of this note might be differ ent from the original. Added automatically from request for makayla garay [id number] GERD (gastroesophageal reflux disease) Sleep apnea Overview: Formatting of this note might be differ ent from the original. cannot tolerate machine Hyperlipidemia Hypertension documented as of this encounter (statuses as of 03/06/2021) Social History Date Tobacco Use Types Packs/Day Years Used Never Smoker Smokeless Tobacco: Never Used Comments Alcohol Use Standard Drinks/Week Not Currently 0 (1 standard drink = 0.6 o z pure alcohol) Sex Assigned at Date Recorded Not on file Date Recorded COVID-19 Exposure Response 02/22/2021 9:44 AM EDT In the last month, have you been in contact with No / Unsure someone who was confirmed or suspected to have Coronavirus / COVID-19? documented as of this encounter Last Filed Vital Signs Not on filedocumented in this encounter Progress Notes * Ko Rutledge MD - 02/22/2021 9:45 AM EDT 60-year-old male status post left reverse total shoulder arthroplasty less than 3 months ago. His pain is significantly improved his range of motion significan tly improved. Incision benign deltoid neurovascular intact. Continue with phys ical therapy we will see him at the 6-months patricia documented in this encounter Plan of Treatment Care Team Description Date Type Specialty Lindsey Hernandez NP [address] [place] [address] [phone] 06/29/2021 Office Visit Orthopedic Surgery Health Maintenance Due Date Last Done Comments Hepatitis C Screening (B. 1960 [id number]) MMR Vaccines (1 of 1 - 1961 Standard series) Varicella Vaccines (1 of 1961 2 - 2-dose childhood series) DTaP,Tdap,and Td Vaccines 1965 (1 - Tdap) HIV Screening 1971 Zoster Vaccines (1 of 2) 2008 Influenza Vaccine 03/17/2021 03/19/2020, 03/23/2019, 04/01/2018, Additional history exists Pneumococcal Vaccine: 65+ 2023 Years (1 of 1 - PPSV23) Colon Cancer Screening 10 01/30/2028 01/29/2018 yrs COVID-19 Vaccine Completed 09/15/2020, 08/18/2020, 08/18/2020 HIB Vaccines Aged Out No longer eligible based on patient's age to complete this topic Hepatitis A Vaccines Aged Out No longer eligibl e based on patient's age to complete this topic Hepatitis B Vaccines Aged Out No longer eligibl e based on patient's age to complete this topic IPV Vaccines Aged Out No longer eligible based on patient's age to complete this topic Pneumococcal Vaccine: Aged Out No longer eligib le based on patient's age to Pediatrics (0 to 5 Years) complete this topic and At-Risk Patients (6 to 64 Years) documented as of this encounter Implants Device Identifier Shelf Expiration Date Model / Serial / L ot Implanted Type Area Manufactur er 11/14/2025 1374.09.121 / / [id number] Glenosphere Smr Shldr 40mm. - Left: Shoulder [employer] [id number] Implanted: Qty: 1 on 12/09/2020 by Ko Rutledge MD at [facility] 10/14/2025 1365.50.815 / / [id number] Liner Rev Smr Shoulder +3/40mm - Left: Shoulder [employer] [id number] Implanted: Qty: 1 on 12/09/2020 by Ko Rutledge MD at [facility] 10/14/2025 1374.15.312 / / [id number] Connector And Screw 2mm Lat Smright Left: Shoulder L SHIRE[employer] - [id number] Implanted: Qty: 1 on 12/09/2020 by Ko Rutledge MD at [facility] 11/14/2025 8420.15.020 / / [id number] Screw Bone Slf-Tap [id number] - Left: Shoulder [employer] [id number] INC Implanted: Qty: 1 on 12/09/2020 by Ko Rutledge MD at [facility] 11/14/2025 8420.15.030 / / [id number] Screw Bone Slf-Tap [id number] - Left: Shoulder [employer] [id number] INC Implanted: Qty: 1 on 12/09/2020 by Ko Rutledge MD at [facility] 10/14/2025 1375.15.605 / / [id number] Glenoid Smr Shoulder Small-R. - Left: Shoulder [employer] [id number] Implanted: Qty: 1 on 12/09/2020 by Ko Rutledge MD at [facility] 11/14/2025 1375.14.652 / / [id number] Glenoid Smr Shoulder Sm-R Med. - Left: Shoulder [employer] [id number] INC Implanted: Qty: 1 on 12/09/2020 by Ko Rutledge MD at [facility] 09/14/2025 1352.15.010 / / [id number] Body Humeral Finned Reverse - Left: Shoulder [employer] [id number] INC Implanted: Qty: 1 on 12/09/2020 by Ko Rutledge MD at [facility] 07/17/2025 1304.15.200 / / [id number] Stem Shoulder Smr 20mm. - Left: Shoulder [employer] [id number] INC Implanted: Qty: 1 on 12/09/2020 by Ko Rutledge MD at [facility] 10/14/2025 1352.15.001 / / [id number] Smr Extension Hum Reverse Body. - Left: Shoulder [employer] [id number] INC Implanted: Qty: 1 on 12/09/2020 by Ko Rutledge MD at [facility] documented as of this encounter Results Not on filedocumented in this encounter Visit Diagnoses Diagnosis Status post reverse total arthroplasty of left shoulder - Primary documented in this encounter
--- OUTSIDE RECORDS SUMMARY | 2021-05-22 08:20 | CCD ---
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 Activ e confirmed 464726400 Problem IFG (impaired fasting glucose) R73.01 Active confir med 750162906 Problem Benign prostatic hypertrophy with lower urinary tract symptoms (LUTS) N40.1 Active confirmed 744965943 Problem Hyperlipidemia E78.5 Active confirmed 94120 004 Problem Overweight E66.3 Active confirmed 681879222 Problem Osteoarthritis of hands, 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 Activ e confirmed 07893431 Problem Essential hypertension I10 Active confirmed 60332644 Problem Flexural eczema L20.82 Active confirmed 5709 2006 Problem FH: colon cancer Z80.0 Active confirmed 312 911761 Problem 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 K22.70 Ac tive confirmed 935189680 Problem Colon cancer screening Z12.11 Active confirmed 538076666 Problem Daytime somnolence R40.0 Active confirmed 1 29364371268 Problem Low testosterone E29.1 Active confirmed 376 0784262224 Problem BAYLEE (obstructive sleep apnea) G47.33 Active confirm ed 80537105 Problem Prostate cancer screening Z12.5 Active confirmed 727524106 Problem Psychophysiological insomnia F51.04 Active confirme d 985188686 Problem Gastroesophageal reflux disease with 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 K21.00 Active confirmed 851110321 ALLERGIES No Known Allergies ENCOUNTERS from 1960 to 2021-02-23 Encounter Location Date Provider Diagnosis [address] [phone] [place] [address] Feb, Mathew Rogers Osteoarthritis of knees, ana ateral M17.0 IMMUNIZATIONS Vaccine Route Administration Date Status COVID-19 dose #1 given elsewhere Unspecified IM Intramuscular [facility] 2020 Administered Influenza 18 yrs & [...] Education Language: Question Answer Notes Languages spoken: Ecuadorean Baptist: Question Answer Notes Baptist 21 Yarsanism Sexual Hx: Question Answer Notes Had sex [...] tablet Orally bid for 90 day(s) Active CPAP mask as directed _ QHS, G47.3 for 60 days all related supplies Sep, Active HYDROcodone-Acetaminophen 5-325 MG 1 tablet as needed Orally every 8 hrs prn/MDD # 3 for 30 day(s) Feb, Active CPAP Machine as directed _ QHS, G47.3 for 9999 days Sep Active Aspirin 81 MG 1 tablet Orally Once a day Active Celecoxib 200 MG 1 capsule with food Orally once daily for 90 day(s) Active Omeprazole 40 mg 1 capsule Orally Twice a day Active CPAP mask with tubing _ QHS, G47.33 for 90 day(s) Jan, Active Rosuvastatin Calcium 40 MG 1 tablet Orally Once a day for 90 day(s) Active CPAP Machine as directed _ at bedtime, G47.33 for 999 days Jan, Active Fluticasone Propionate 0.005 % 1 application to affect ed area Externally Twice a day x 7D c flares for 90 day(s) Active PROCEDURES No Information RESULTS No Results REASON FOR VISIT refill request MEDICAL (GENERAL) HISTORY Type Description Date Medical History hyperlipidemia 2B Medical History history of Lau's esophag itis-02/24 EGD [facility] with hiatal hernia and moderate esophagitis by biopsy without dysplasia/GERD EGD c low grade dysplasia therefore Halo therapy done by [facility]/07/2013, 01/2018 moderate HH c meta/s dysplasia-W s dysplasia-W Medical History obesity Medical History BAYLEE, moderate-03/2018 HST KATHE 19 c SaO2 to 81% on chronic CPAP Medical History nonalcoholic fatty liver dis ease-normal workup 11/2008, seen by liver ultrasound 08/24// FS2 33 Medical History impaired fasting glucose Medical History hypertension-08/2009 nuclear stress test with no reversibility- Antecol/10/14/14 stress echocardiogram to 10 METS, normal wall motion, normal LVEF-low risk-[facility] Medical History WC 10/2014 L meniscal tear [...] Surgical History RTK-DR. Abbott-SOS 01/26/2020 Surgical History ABEQU-Qjrkrp-Dsuordr 12/09/20 Hospitalization History surgeries as above Goals Section No Information Health Concerns No Information MEDICAL EQUIPMENT No Information MENTAL STATUS No Information FUNCTIONAL STATUS No Information ASSESSMENTS Encounter Date Diagnosis Assessment Notes Treatment Notes Treatm ent Clinical Notes Feb, Osteoarthritis of knees, bilateral (ICD-10 - M17 [...] _ QHS, G47.33 for 90 day(s) Jan, HYDROcodone-Acetaminophen 5-325 MG 1 tablet as needed Orally every 8 hrs prn/MDD # 3 for 30 day(s) Feb, Aspirin 81 MG 1 tablet Orally Once a day Celecoxib 200 MG 1 capsule with food Orally once daily for 90 da y(s) Omeprazole 40 mg 1 capsule Orally Twice a day Fluticasone Propionate 0.005 % 1 application to affect ed area Externally Twice a day x 7D c flares for 90 day(s) Insurance Providers Payer Name Payer Address Payer Phone Insured Name Patient Relati onship to Insured Coverage Start Date Coverage End Date [employer] PPO [phone] [facility] [place] [address] YUDITH VILLALPANDO self
--- OUTSIDE RECORDS SUMMARY | 2021-05-22 08:22 | CCD ---
Author Author [facility] Address Unknown Phone Unavailable Care Team Providers Care Case Work Aide Name Role Phone Maring, Zackery PA Unavailable Unavailable Maring, Zackery PA Unavailable Unavailable Maring, Zackery PA Unavailable Unavailable Maring, Zackery PA Unavailable Unavailable Maring, Zackery PA Unavailable Unavailable Maring, Zackery PA Unavailable Unavailable Maring, Zackery PA Unavailable Unavailable Maring, Zackery PA Unavailable Unavailable Maring, Zackery PA Unavailable Unavailable Maring, Zackery PA Unavailable Unavailable Maring, Zackery PA Unavailable Unavailable Maring, Zackery PA Unavailable Unavailable Maring, Zackery PA Unavailable Unavailable Maring, Zackery PA Unavailable Unavailable Maring, Zackery PA Unavailable Unavailable Maring, Zackery PA Unavailable Unavailable Yolanda Quintero MD Unavailable Unavailable Yolanda Quintero MD Unavailable Unavailable Yolanda Quintero MD Unavailable Unavailable Yolanda Quintero MD Unavailable Unavailable Yolanda Quintero MD Unavailable Unavailable Yolanda Quintero MD Unavailable Unavailable Yolanda Quintero MD Unavailable Unavailable Yolanda Quintero MD Unavailable Unavailable Yolanda Quintero MD Unavailable Unavailable Yolanda Quintero MD Unavailable Unavailable Yolanda Quintero MD Unavailable Unavailable Yolanda Quintero MD Unavailable Unavailable Yolanda Quintero MD Unavailable Unavailable Yolanda Quintero MD Unavailable Unavailable Yolanda Quintero MD Unavailable Unavailable Yolanda Quintero MD Unavailable Unavailable Yolanda Quintero MD Unavailable Unavailable Yolanda Quintero MD Unavailable Unavailable Yolanda Quintero MD Unavailable Unavailable Yolanda Quintero MD Unavailable Unavailable Yolanda Quintero MD Unavailable Unavailable Yolanda Quintero MD Unavailable Unavailable Yolanda Quintero MD Unavailable Unavailable Yolanda Quintero MD Unavailable Unavailable Yolanda Quintero MD Unavailable Unavailable Yolanda Quintero MD Unavailable Unavailable Yolanda Quintero MD Unavailable Unavailable Yolanda Quintero MD Unavailable Unavailable Yolanda Quintero MD Unavailable Unavailable Yolanda Quintero MD Unavailable Unavailable Yolanda Quintero MD Unavailable Unavailable Yolanda Quintero MD Unavailable Unavailable Yolanda Quintero MD Unavailable Unavailable Yolanda Quintero MD Unavailable Unavailable Yolanda Quintero MD Unavailable Unavailable Yolanda Quintero MD Unavailable Unavailable Yolanda Quintero MD Unavailable Unavailable Yolanda Quintero MD Unavailable Unavailable Yolanda Quintero MD Unavailable Unavailable Yoalnda Quintero MD Unavailable Unavailable Yolanda Quintero MD Unavailable Unavailable Yolanda Quintero MD Unavailable Unavailable Yolanda Quintero MD Unavailable Unavailable Yolanda Quintero MD Unavailable Unavailable Yolanda Quintero MD Unavailable Unavailable Yolanda Quintero MD Unavailable Unavailable Yolanda Quintero MD Unavailable Unavailable Yolanda Quintero MD Unavailable Unavailable Yolanda Quintero MD Unavailable Unavailable Yolanda Quintero MD Unavailable Unavailable Yolanda Quintero MD Unavailable Unavailable Wright, R Jayna WARP TENSION TESTER Unavailable Unavailable Wright, R Jayna WARP TENSION TESTER Unavailable Unavailable Wright, R Jayna WARP TENSION TESTER Unavailable Unavailable Wright, R Jayna WARP TENSION TESTER Unavailable Unavailable Wright, R Jayna WARP TENSION TESTER Unavailable Unavailable Wright, R Jayna WARP TENSION TESTER Unavailable Unavailable Wright, R Jayna WARP TENSION TESTER Unavailable Unavailable Wright, R Jayna WARP TENSION TESTER Unavailable Unavailable Wright, R Jayna WARP TENSION TESTER Unavailable Unavailable Wright, R Jayna WARP TENSION TESTER Unavailable Unavailable Wright, R Jayna WARP TENSION TESTER Unavailable Unavailable Wright, R Jayna WARP TENSION TESTER Unavailable Unavailable Wright, R Jayna WARP TENSION TESTER Unavailable Unavailable Wright, R Jayna WARP TENSION TESTER Unavailable Unavailable Wright, R Jayna WARP TENSION TESTER Unavailable Unavailable Wright, R Jayna WARP TENSION TESTER Unavailable Unavailable Wright, R Jayna WARP TENSION TESTER Unavailable Unavailable Wright, R Jayna WARP TENSION TESTER Unavailable Unavailable Wright, R Jayna WARP TENSION TESTER Unavailable Unavailable Wright, R Jayna WARP TENSION TESTER Unavailable Unavailable Wright, R Jayna WARP TENSION TESTER Unavailable Unavailable Wright, R Jayna WARP TENSION TESTER Unavailable Unavailable Wright, R Jayna WARP TENSION TESTER Unavailable Unavailable Wright, R Jayna WARP TENSION TESTER Unavailable Unavailable Wright, R Jayna WARP TENSION TESTER Unavailable Unavailable Wright, R Jayna WARP TENSION TESTER Unavailable Unavailable Wright, R Jayna WARP TENSION TESTER Unavailable Unavailable Wright, R Jayna WARP TENSION TESTER Unavailable Unavailable Wright, R Jayna WARP TENSION TESTER Unavailable Unavailable Wright, R Jayna WARP TENSION TESTER Unavailable Unavailable Wright, R Jayna WARP TENSION TESTER Unavailable Unavailable Wright, R Jayna WARP TENSION TESTER Unavailable Unavailable Wright, R Jayna WARP TENSION TESTER Unavailable Unavailable Oz Rogers MD Unavailable Unavailable Oz Rogers MD Unavailable Unavailable Oz Rogers MD Unavailable Unavailable Oz Rogers MD Unavailable Unavailable Oz Rogers MD Unavailable Unavailable Oz Rogers MD Unavailable Unavailable Oz Rogers MD Unavailable Unavailable Oz Rogers MD Unavailable Unavailable Oz Rogers MD Unavailable Unavailable Oz Rogers MD Unavailable Unavailable Oz Rogers MD Unavailable Unavailable Oz Rogers MD Unavailable Unavailable Oz Rogers MD Unavailable Unavailable Oz Rogers MD Unavailable Unavailable Oz Rogers MD Unavailable Unavailable Oz Rogers MD Unavailable Unavailable Oz Rogers MD Unavailable Unavailable Oz Rogers MD Unavailable Unavailable Oz Rogers MD Unavailable Unavailable Oz Rogers MD Unavailable Unavailable Oz Rogers MD Unavailable Unavailable Oz Rogers MD Unavailable Unavailable Oz Rogers MD Unavailable Unavailable Oz Rogers MD Unavailable Unavailable Oz Rogers MD Unavailable Unavailable Oz Rogers MD Unavailable Unavailable Ken, E Mathew MD Unavailable Unavailable Ken, E Mathew MD Unavailable Unavailable Ken, E Mathew MD Unavailable Unavailable Ken, E Mathew MD Unavailable Unavailable Ken, E Mathew MD Unavailable Unavailable Ken, E Mathew MD Unavailable Unavailable Ken, E Mathew MD Unavailable Unavailable Ken, E Mathew MD Unavailable Unavailable Ken, E Mathew MD Unavailable Unavailable Ken, E Mathew MD Unavailable Unavailable Ken, E Mathew MD Unavailable Unavailable Ken, E Mathew MD Unavailable Unavailable Ken, E Mathew MD Unavailable Unavailable Ken, E Mathew MD Unavailable Unavailable Ken, E Mathew MD Unavailable Unavailable Ken, E Mathew MD Unavailable Unavailable Ken, E Mathew MD Unavailable Unavailable Ken, E Mathew MD Unavailable Unavailable Ken, E Mathew MD Unavailable Unavailable Ken, E Mathew MD Unavailable Unavailable Ken, E Mathew MD Unavailable Unavailable Ken, E Mathew MD Unavailable Unavailable Ken, E Mathew MD Unavailable Unavailable Ken, E Mathew MD Unavailable Unavailable Ken, E Mathew MD Unavailable Unavailable Ken, E Mathew MD Unavailable Unavailable Ken, E Mathew MD Unavailable Unavailable Ken, E Mathew MD Unavailable Unavailable Ken, E Mathew MD Unavailable Unavailable Ken, E Mathew MD Unavailable Unavailable Ken, E Mathew MD Unavailable Unavailable Ken, E Mathew MD Unavailable Unavailable Ken, E Mathew MD Unavailable Unavailable Ken, E Mathew MD Unavailable Unavailable Ken, E Mathew MD Unavailable Unavailable Gavin, Natalia PA Unavailable Unavailable Gavin, Natalia PA Unavailable Unavailable Gavin, Natalia PA Unavailable Unavailable Gavin, Natalia PA Unavailable Unavailable Gavin, Natalia PA Unavailable Unavailable Gavin, Natalia PA Unavailable Unavailable Gavin, Natalia PA Unavailable Unavailable Gavin, Natalia PA Unavailable Unavailable Gavin, Natalia PA Unavailable Unavailable Gavin, Natalia PA Unavailable Unavailable Gavin, Natalia PA Unavailable Unavailable Gavin, Natalia PA Unavailable Unavailable Gavin, Natalia PA Unavailable Unavailable Gavin, Natalia PA Unavailable Unavailable Gavin, Natalia PA Unavailable Unavailable Gavin, Natalia PA Unavailable Unavailable Gavin, Natalia PA Unavailable Unavailable Gavin, Natalia PA Unavailable Unavailable Gavin, Natalia PA Unavailable Unavailable Gavin, Natalia PA Unavailable Unavailable Gavin, Natalia PA Unavailable Unavailable Gavin, Natalia PA Unavailable Unavailable Gavin, Natalia PA Unavailable Unavailable Gavin, Natalia PA Unavailable Unavailable Gavin, Natalia PA Unavailable Unavailable Gavin, Natalia PA Unavailable Unavailable Gavin, Natalia PA Unavailable Unavailable Gavin, Natalia PA Unavailable Unavailable Gavin, Natalia PA Unavailable Unavailable Gavin, Natalia PA Unavailable Unavailable Gavin, Natalia PA Unavailable Unavailable Gavin, Natalia PA Unavailable Unavailable Gavin, Natalia PA Unavailable Unavailable Gavin, Natalia PA Unavailable Unavailable Gavin, Natalia PA Unavailable Unavailable Gavin, Natalia PA Unavailable Unavailable Gavin, Natalia PA Unavailable Unavailable Gavin, Natalia PA Unavailable Unavailable Gavin, Natalia PA Unavailable Unavailable Gavin, Natalia PA Unavailable Unavailable Gavin, Natalia PA Unavailable Unavailable Gavin, Natalia PA Unavailable Unavailable Gavin, Natalia PA Unavailable Unavailable Gavin, Natalia PA Unavailable Unavailable Gavin, Natalia PA Unavailable Unavailable Gavin, Natalia PA Unavailable Unavailable Gavin, Natalia PA Unavailable Unavailable Gavin, Natalia PA Unavailable Unavailable Gavin, Natalia PA Unavailable Unavailable Gavin, Natalia PA Unavailable Unavailable Gavin, Natalia PA Unavailable Unavailable Gavin, Natalia PA Unavailable Unavailable Gavin, Natalia PA Unavailable Unavailable Gavin, Natalia PA Unavailable Unavailable Gavin, Natalia PA Unavailable Unavailable Gavin, Natalia PA Unavailable Unavailable Gavin, Natalia PA Unavailable Unavailable Gavin, Natalia PA Unavailable Unavailable Gavin, Natalia PA Unavailable Unavailable Gavin, Natalia PA Unavailable Unavailable Gavin, Natalia PA Unavailable Unavailable Gavin, Natalia PA Unavailable Unavailable MEDINA, R CHRISTELLE WARP TENSION TESTER Unavailable Unavailable MEDINA, R CHRISTELLE WARP TENSION TESTER Unavailable Unavailable MEDINA, R CHRISTELLE WARP TENSION TESTER Unavailable Unavailable MEDINA, R CHRISTELLE WARP TENSION TESTER Unavailable Unavailable MEDINA, R CHRISTELLE WARP TENSION TESTER Unavailable Unavailable MEDINA, R CHRISTELLE WARP TENSION TESTER Unavailable Unavailable MEDINA, R CHRISTELLE WARP TENSION TESTER Unavailable Unavailable MEDINA, R CHRISTELLE WARP TENSION TESTER Unavailable Unavailable MEDINA, R CHRISTELLE WARP TENSION TESTER Unavailable Unavailable MEDINA, R CHRISTELLE WARP TENSION TESTER Unavailable Unavailable MEDINA, R CHRISTELLE WARP TENSION TESTER Unavailable Unavailable MEDINA, R CHRISTELLE WARP TENSION TESTER Unavailable Unavailable MEDINA, R CHRISTELLE WARP TENSION TESTER Unavailable Unavailable MEDINA, R CHRISTELLE WARP TENSION TESTER Unavailable Unavailable MEDINA, R CHRISTELLE WARP TENSION TESTER Unavailable Unavailable MEDINA, R CHRISTELLE WARP TENSION TESTER Unavailable Unavailable MEDINA, R CHRISTELLE WARP TENSION TESTER Unavailable Unavailable MEDINA, R CHRISTELLE WARP TENSION TESTER Unavailable Unavailable MEDINA, R CHRISTELLE WARP TENSION TESTER Unavailable Unavailable MEDINA, R CHRISTELLE WARP TENSION TESTER Unavailable Unavailable MEDINA, R CHRISTELLE WARP TENSION TESTER Unavailable Unavailable MEDINA, R CHRISTELLE WARP TENSION TESTER Unavailable Unavailable MEDINA, R CHRISTELLE WARP TENSION TESTER Unavailable Unavailable MEDINA, R CHRISTELLE WARP TENSION TESTER Unavailable Unavailable MEDINA, R CHRISTELLE WARP TENSION TESTER Unavailable Unavailable MEDINA, R CHRISTELLE WARP TENSION TESTER Unavailable Unavailable MEDINA, R CHRISTELLE WARP TENSION TESTER Unavailable Unavailable MEDINA, R CHRISTELLE WARP TENSION TESTER Unavailable Unavailable MEDINA, R CHRISTELLE WARP TENSION TESTER Unavailable Unavailable MEDINA, R CHRISTELLE WARP TENSION TESTER Unavailable Unavailable MEDINA, R CHRISTELLE WARP TENSION TESTER Unavailable Unavailable MEDINA, R CHRISTELLE WARP TENSION TESTER Unavailable Unavailable MEDINA, R CHRISTELLE WARP TENSION TESTER Unavailable Unavailable MEDINA, R CHRISTELLE WARP TENSION TESTER Unavailable Unavailable MEDINA, R CHRISTELLE WARP TENSION TESTER Unavailable Unavailable MEDINA, R CHRISTELLE WARP TENSION TESTER Unavailable Unavailable MEDINA, R CHRISTELLE WARP TENSION TESTER Unavailable Unavailable MEDINA, R CHRISTELLE WARP TENSION TESTER Unavailable Unavailable MEDINA, R CHRISTELLE WARP TENSION TESTER Unavailable Unavailable MEDINA, R CHRISTELLE WARP TENSION TESTER Unavailable Unavailable MEDINA, R CHRISTELLE WARP TENSION TESTER Unavailable Unavailable MEDINA, R CHRISTELLE WARP TENSION TESTER Unavailable Unavailable MEDINA, R CHRISTELLE WARP TENSION TESTER Unavailable Unavailable MEDINA, R CHRISTELLE WARP TENSION TESTER Unavailable Unavailable PARMelissa RAMON MD Unavailable Unavailable PARNESMelissa MD Unavailable Unavailable PARNESMelissa MD Unavailable Unavailable PARMelissa RAMON MD Unavailable Unavailable PARMelissa RAMON MD Unavailable Unavailable PARNESMelissa MD Unavailable Unavailable PARMelissa RAMON MD Unavailable Unavailable PARMelissa RAMON MD Unavailable Unavailable PARMelissa RAMON MD Unavailable Unavailable PARMelissa RAMON MD Unavailable Unavailable PARMelissa RAMON MD Unavailable Unavailable PARMelissa RAMON MD Unavailable Unavailable PARMelissa RAMON MD Unavailable Unavailable PARMelissa RAMON MD Unavailable Unavailable PARMelissa RAMON MD Unavailable Unavailable PARMelissa RAMON MD Unavailable Unavailable PARMelissa RAMON MD Unavailable Unavailable PARMelissa RAMON MD Unavailable Unavailable PARMelissa RAMON MD Unavailable Unavailable PARNESMelissa MD Unavailable Unavailable PARNESMelissa MD Unavailable Unavailable PARMelissa RAMON MD Unavailable Unavailable PARNESMelissa MD Unavailable Unavailable PARNESMelissa MD Unavailable Unavailable PARNESMelissa MD Unavailable Unavailable PARNESMelissa MD Unavailable Unavailable PARNESMelissa MD Unavailable Unavailable PARNESMelissa MD Unavailable Unavailable PARNESMelissa MD Unavailable Unavailable PARNESMelissa MD Unavailable Unavailable PARNESMelissa MD Unavailable Unavailable PARNESMelissa MD Unavailable Unavailable Melissa HERNANDEZ MD Unavailable Unavailable Melissa HERNANDEZ MD Unavailable Unavailable Melissa HERNANDEZ MD Unavailable Unavailable Melissa HERNANDEZ MD Unavailable Unavailable Melissa HERNANDEZ MD Unavailable Unavailable Melissa HERNANDEZ MD Unavailable Unavailable Melissa HERNANDEZ MD Unavailable Unavailable Melissa HERNANDEZ MD Unavailable Unavailable Melissa HERNANDEZ MD Unavailable Unavailable Melissa HERNANDEZ MD Unavailable Unavailable Bogosian, Yane Jenkins MD Unavailable Unavailable Bogosian, Yane Jenkins MD Unavailable Unavailable Bogosian, Yane Jenkins MD Unavailable Unavailable Bogosian, Yane Jenkins MD Unavailable Unavailable Bogosian, Yaen Jenkins MD Unavailable Unavailable Bogosian, Yane Jenkins MD Unavailable Unavailable Bogosian, Yane Jenkins MD Unavailable Unavailable Bogosian, Yane Jenkins MD Unavailable Unavailable Bogosian, Yane Jenkins MD Unavailable Unavailable Bogosian, Yane Jenkins MD Unavailable Unavailable Bogosian, Yane Jenkins MD Unavailable Unavailable Bogosian, Yane Jenkins MD Unavailable Unavailable Bogosian, Yane Jenkins MD Unavailable Unavailable Bogosian, Yane Jenkins MD Unavailable Unavailable Bogosian, Yane Jenkins MD Unavailable Unavailable Bogosian, Yane Jenkins MD Unavailable Unavailable Bogosian, Yane Jenkins MD Unavailable Unavailable Bogosityler, Yane Jenkins MD Unavailable Unavailable Bogosian, Yane Jenkins MD Unavailable Unavailable Bogosian, Yane Jenkins MD Unavailable Unavailable Bogosian, Yane Jenkins MD Unavailable Unavailable Bogosian, Yane Jenkins MD Unavailable Unavailable Bogosityler, Yane Jenkins MD Unavailable Unavailable Bogosityler, Yane Jenkins MD Unavailable Unavailable Bogosian, Yane Jenkins MD Unavailable Unavailable Bogosian, Yane Jenkins MD Unavailable Unavailable BogosianYane MD Unavailable Unavailable BogosiYane scott MD Unavailable Unavailable BogYane sidhu MD Unavailable Unavailable BogosiYane scott MD Unavailable Unavailable BogosiYane scott MD Unavailable Unavailable Bogosian, aYne Jenkins MD Unavailable Unavailable Bogosian, Yane Jenkins MD Unavailable Unavailable Bogosityler, Yane Jenkins MD Unavailable Unavailable Bogosityler, Yane Jenkins MD Unavailable Unavailable BogYane sidhu MD Unavailable Unavailable Bognahum, Yane Jenkins MD Unavailable Unavailable Bogosityler, Yane Jenkins MD Unavailable Unavailable Bogosian, Yane Jenkins MD Unavailable Unavailable Bogosian, Yane Jenkins MD Unavailable Unavailable Bogosian, Yane Jenkins MD Unavailable Unavailable BogosiYane scott MD Unavailable Unavailable BogosianYane MD Unavailable Unavailable BogosianYane MD Unavailable Unavailable BogosianYane MD Unavailable Unavailable BogosianYane MD Unavailable Unavailable BogosianYane MD Unavailable Unavailable BogosianYane MD Unavailable Unavailable BogosianYane MD Unavailable Unavailable BogosianYane MD Unavailable Unavailable Bogosian, Yane Jenkins MD Unavailable Unavailable BogosianYane MD Unavailable Unavailable BogosianYane MD Unavailable Unavailable BogosianYane MD Unavailable Unavailable BogosianYane MD Unavailable Unavailable Bogosian, Yane Jenkins MD Unavailable Unavailable Bogosian, Yane Jenkins MD Unavailable Unavailable Bogosian, Yane Jenkins MD Unavailable Unavailable Bogosian, Yane Jenkins MD Unavailable Unavailable BogosianYane MD Unavailable Unavailable BogosianYane MD Unavailable Unavailable BogosianYane MD Unavailable Unavailable BogosianYane MD Unavailable Unavailable BogosianYane MD Unavailable Unavailable BogosianYane MD Unavailable Unavailable BogosianYane MD Unavailable Unavailable BogosianYane MD Unavailable Unavailable BogosianYane MD Unavailable Unavailable BogosianYane MD Unavailable Unavailable BogosianYane MD Unavailable Unavailable BogosianYane MD Unavailable Unavailable BogosianYane MD Unavailable Unavailable BogosiYane scott MD Unavailable Unavailable BogosiYane scott MD Unavailable Unavailable BogosianYane MD Unavailable Unavailable BogosianYane MD Unavailable Unavailable BogosianYane MD Unavailable Unavailable BogosiYane scott MD Unavailable Unavailable BogYane sidhu MD Unavailable Unavailable Eduardo SAUCEDA MD Unavailable Unavailable Eduardo SAUCEDA MD Unavailable Unavailable Eduardo SAUCEDA MD Unavailable Unavailable Eduardo SAUCEDA MD Unavailable Unavailable Eduardo SAUCEDA MD Unavailable Unavailable Eduardo SAUCEDA MD Unavailable Unavailable Eduardo SAUCEDA MD Unavailable Unavailable Eduardo SAUCEDA MD Unavailable Unavailable Eduardo SAUCEDA MD Unavailable Unavailable Eduardo SAUCEDA MD Unavailable Unavailable Eduardo SAUCEDA MD Unavailable Unavailable Eduardo SAUCEDA MD Unavailable Unavailable Eduardo SAUCEDA MD Unavailable Unavailable SETTEREduardo MD Unavailable Unavailable SETTEREduardo MD Unavailable Unavailable SETTEREduardo MD Unavailable Unavailable SETTEREduardo MD Unavailable Unavailable SETTER, Eduardo WEAVER MD Unavailable Unavailable SETTER, Eduardo WEAVER MD Unavailable Unavailable SETTER, Eduardo WEAVER MD Unavailable Unavailable SETTEREduardo MD Unavailable Unavailable SETTEREduardo MD Unavailable Unavailable SETTEREduardo MD Unavailable Unavailable SETTER, Eduardo WEAVER MD Unavailable Unavailable SETTER, Eduardo WEAVER MD Unavailable Unavailable SETTER, Eduardo WEAVER MD Unavailable Unavailable SETTER, Eduardo WEAVER MD Unavailable Unavailable SETTER, Eduardo WEAVER MD Unavailable Unavailable SETTER, Eduardo WEAVER MD Unavailable Unavailable SETTER, Eduardo WEAVER MD Unavailable Unavailable SETTER, Eduardo WEAVER MD Unavailable Unavailable SETTER, Eduardo WEAVER MD Unavailable Unavailable SETTER, Eduardo WEAVER MD Unavailable Unavailable SETTER, Eduardo WEAVER MD Unavailable Unavailable SETTEREduardo MD Unavailable Unavailable SETTEREduardo MD Unavailable Unavailable SETTEREduardo MD Unavailable Unavailable SETTER, Eduardo WEAVER MD Unavailable Unavailable SETTER, Eduardo WEAVER MD Unavailable Unavailable SETTEREduardo MD Unavailable Unavailable SETTEREduardo MD Unavailable Unavailable SETTEREduardo MD Unavailable Unavailable SETTEREduardo MD Unavailable Unavailable SETTEREduardo MD Unavailable Unavailable SETTEREduardo MD Unavailable Unavailable SETTEREduardo MD Unavailable Unavailable SETTEREduardo MD Unavailable Unavailable SETTEREduardo MD Unavailable Unavailable SETTEREduardo MD Unavailable Unavailable SETTEREduardo MD Unavailable Unavailable SETTEREduardo MD Unavailable Unavailable SETTEREduardo MD Unavailable Unavailable SETTEREduardo MD Unavailable Unavailable SETTEREduardo MD Unavailable Unavailable SETTEREduardo MD Unavailable Unavailable SETTEREduardo MD Unavailable Unavailable SETTEREduardo MD Unavailable Unavailable SETTEREduardo MD Unavailable Unavailable SETTEREduardo MD Unavailable Unavailable SETTEREduardo MD Unavailable Unavailable SETTEREduardo MD Unavailable Unavailable SETTEREduardo MD Unavailable Unavailable SETTEREduardo MD Unavailable Unavailable SETTEREduardo MD Unavailable Unavailable SETTEREduardo MD Unavailable Unavailable SETTEREduardo MD Unavailable Unavailable SETTEREduardo MD Unavailable Unavailable SETTEREduardo MD Unavailable Unavailable SETTER, Eduardo WEAVER MD Unavailable Unavailable SETTER, J MEG TOBIAS Unavailable Unavailable SETTER, J MEG TOBIAS Unavailable Unavailable SETTER, J MEG TOBIAS Unavailable Unavailable SETTER, J MEG TOBIAS Unavailable Unavailable SETTER, J MEG TOBIAS Unavailable Unavailable SETTER, J MEG TOBIAS Unavailable Unavailable SETTER, J MEG TOBIAS Unavailable Unavailable SETTER, J MEG TOBIAS Unavailable Unavailable SETTER, J MEG MD Unavailable Unavailable SETTER, J MEG TOBIAS Unavailable Unavailable SETTER, J MEG TOBIAS Unavailable Unavailable SETTER, J MEG MD Unavailable Unavailable SETTER, J MEG MD Unavailable Unavailable SETTER, J MEG MD Unavailable Unavailable SETTER, J MEG MD Unavailable Unavailable SETTER, J MEG MD Unavailable Unavailable SETTER, J MEG TOBIAS Unavailable Unavailable SETTER, J MEG TOBIAS Unavailable Unavailable SETTER, J MEG TOBIAS Unavailable Unavailable SETTER, J MEG MD Unavailable Unavailable SETTER, J MEG MD Unavailable Unavailable SETTER, J MEG MD Unavailable Unavailable SETTER, J MEG MD Unavailable Unavailable SETTER, J MEG TOBIAS Unavailable Unavailable SETTER, J MEG MD Unavailable Unavailable SETTER, J MEG MD Unavailable Unavailable SETTER, J MEG MD Unavailable Unavailable SETTER, J MEG MD Unavailable Unavailable SETTER, J MEG MD Unavailable Unavailable SETTER, J MEG MD Unavailable Unavailable SETTER, J MEG TOBIAS Unavailable Unavailable SETTER, J MEG TOBIAS Unavailable Unavailable SETTER, J MEG TOBIAS Unavailable Unavailable SETTER, J MEG MD Unavailable Unavailable SETTER, J MEG MD Unavailable Unavailable SETTER, J MEG MD Unavailable Unavailable SETTER, J MEG MD Unavailable Unavailable SETTER, J MEG TOBIAS Unavailable Unavailable SETTER, J MEG MD Unavailable Unavailable SETTER, J MEG MD Unavailable Unavailable SETTER, J MEG MD Unavailable Unavailable SETTER, J MEG MD Unavailable Unavailable SETTER, J MEG MD Unavailable Unavailable SETTER, J MEG MD Unavailable Unavailable Re-disclosure Warning The records that you are about to access may contain information from federally-assisted alcohol or drug abuse programs. If such information is present, then the following federally mandated warning applies: This information has been disclosed to you from records protected by federal confidentiality rules (42 CFR part 2). The federal rules prohibit you from making any further disclosure of this information unless further disclosure is expressly permitted by the written consent of the person to whom it pertains or as otherwise permitted by 42 CFR part 2. A general authorization for the release of medical or other information is NOT sufficient for this purpose. The Federal rules restrict any use of the information to criminally investigate or prosecute any alcohol or drug abuse patient.The records that you are about to access may contain highly sensitive health information, the redisclosure of which is protected by Article 27-F of the [facility] Public Health law. If you continue you may have access to information: Regarding HIV / AIDS; Provided by facilities licensed or operated by the [facility] Office of Mental Health; or Provided by the [facility] Office for People With Developmental Disabilities. If such information is present, then the following [facility] mandated warning applies: This information has been disclosed to you from confidential records which are protected by state law. State law prohibits you from making any further disclosure of this information without the specific written consent of the person to whom it pertains, or as otherwise permitted by law. Any unauthorized further disclosure in violation of state law may result in a fine or residential sentence or both. A general authorization for the release of medical or other information is NOT sufficient authorization for further disc losure. Family History Family Member Name Family Member Gender Family Member Status Date o f Status Description Data Source(s) Unknown Male Problem MEDENT ([facility]) Unknown Male Problem MEDENT ([facility]) Encounters Encounter Providers Location Date Indications Data Source(s ) Outpatient Attender: CHRISTELLE MEDINA NP 06/29/2021 12:00:0 0 AM [facility] Outpatient Attender: CHRISTELLE MEDINA NP 06/28/2021 12:00:0 0 AM [facility] Outpatient Attender: Odell Quintero MD Main Office 05/09/2021 12:15:00 PM EST [facility] ([facility]) Unknown [address] [address] 04/25/2021 12:00:00 AM EST eCW1 ([facility]) Unknown [address] [facility] [address] [place] [address] 04/24/2021 12:00:00 AM EST eCW1 ([facility]) Unknown [address] [address] 03/24/2021 12:00:00 AM EDT eCW1 ([facility]) Unknown [address] [facility] [place] [address] 02/23/2021 12:00:00 AM EDT eCW1 ([facility]) Outpatient Attender: MEG SAUCEDA MD [id number] 02/22/2021 12:00:00 AM EDT [facility] Outpatient Referrer: MEG SAUCEDA MD 02/22/2021 12:0 0:00 AM EDT Presence of left artificial shoulder joint [facility] Presence of left artificial shoulder jamin nt Unknown [address] [facility] [address] 02/08/2021 12:00:00 AM EDT eCW1 ([facility]) Outpatient Attender: Gregory Kelley MDReferrer: Natalia HASSAN 01/31/2021 07:15:05 AM EDT [facility] [address] [facility] [address] 01/30/2021 12:00:00 AM EDT eCW1 ([facility]) Unknown [address] [facility] [address] 01/27/2021 12:00:00 AM EDT eCW1 ([facility]) Outpatient Attender: CHRISTELLE MEDINA NPReferrer: MEG JAUREGUI MD [id number] 12/26/2020 12:00:00 AM EDT - 01/05/2021 03:04:35 PM EDT [facility] Outpatient Referrer: CHRISTELLE MEDINA NP 12/26/2020 1 2:00:00 AM EDT Pain in left shoulder [facility] Pain in left shoulder Outpatient Attender: MEG SAUCEDA MDReferrer: MEG SAUCEDA MD 12/22/2020 12:00:00 AM EDT [facility] Inpatient Attender: MEG SAUCEDA MDAdmitter: MEG SAUCEDA MD [id number] 12/09/2020 12:00:00 AM EDT - 12/09/2020 05:55:00 PM EDT Primary osteoarthritis of left shoulder [M19.012] [facility] Primary osteoarthritis of left shoulder [M19.012] Patient discharged. Outpatient Attender: Zackery HASSAN 12/06/19 09:17:34 AM EDT - 12/05/2020 09:42:51 AM EDT [facility] ([facility] ) Outpatient Referrer: MEG SAUCEDA MD 11/30/2020 12:00:00 A M [facility] Outpatient Referrer: MEG SAUCEDA MD 11/29/2020 12:00:00 A M [facility] Unknown [address] [facility] [place] [address] 11/29/2020 12:00:00 AM EDT eCW1 ([facility]) Unknown [address] [facility] [address] [place] [address] 11/29/2020 12:00:00 AM EDT eCW1 ([facility]) Outpatient [address] [facility] [address] [place] [address] 11/29/2020 12:00:00 AM EDT eCW1 ([facility]) Unknown [address] [facility] [place] [address] 11/10/2020 12:00:00 AM EDT eCW1 ([facility]) Unknown [address] [facility] [place] [address] 10/14/2020 12:00:00 AM EDT eCW1 ([facility]) Unknown [address] [facility] [place] [address] 10/12/2020 12:00:00 AM EDT eCW1 ([facility]) Unknown [address] [facility] [place] [address] 10/07/2020 12:00:00 AM EDT eCW1 ([facility]) Outpatient [address] [facility] [place] [address] 09/13/2020 12:00:00 AM EDT eCW1 ([facility]) Unknown [address] [facility] [place] [address] 09/13/2020 12:00:00 AM EDT eCW1 ([facility]) Outpatient Attender: MEG SAUCEDA MD [id number] 09/08/2020 12:00:00 AM [facility] Unknown [address] [facility] [place] [address] 08/18/2020 12:00:00 AM EST eCW1 ([facility]) Unknown [address] [facility] [place] [address] 08/15/2020 12:00:00 AM EST eCW1 ([facility]) Unknown [address] [facility] [place] [address] 08/05/2020 12:00:00 AM EST eCW1 ([facility]) Unknown [address] [facility] [place] [address] 07/18/2020 12:00:00 AM EST eCW1 ([facility]) Unknown [address] [facility] [place] [address] 06/21/2020 12:00:00 AM EST eCW1 ([facility]) Unknown [address] [facility] [place] [address] 06/16/2020 12:00:00 AM EST [facility]CW1 [facility] Outpatient Attender: Jayna Wright NPReferrer: Mathew Rogers MD 06/14/2020 07:14:15 AM EST [facility] Outpatient Attender: Jayna Wright NPReferrer: Mathew Rogers MD 05/03/2020 02:07:26 PM EST [facility] Recurring Patient Referrer: Natalia HASSAN 05/03/2020 09:11:12 AM EST [facility] Recurring Patient Referrer: Natalia HASSAN 05/03/2020 09:09:06 AM EST [facility] Recurring Patient Referrer: Natalia HASSAN 05/03/2020 09:08:49 AM EST [facility] Unknown [address] [address] 04/30/2020 12:00:00 AM EST eCW1 ([facility]) Unknown [address] [facility] [place] [address] 04/21/2020 12:00:00 AM EST eCW1 ([facility]) Outpatient Attender: Gregory Kelley MDReferrer: Mathew newell MD 04/15/2020 10:33:57 AM EDT [facility] Recurring Patient Referrer: Natalia HASSAN 04/06/2020 09:18:48 AM EDT [facility] Recurring Patient Referrer: Natalia HASSAN 04/05/2020 10:19:29 AM EDT [facility] Outpatient [address] [facility] [address] 04/04/2020 12:00:00 AM EDT eCW1 ([facility]) Outpatient Attender: Odell Quintero MD Main Office 03/24/2020 02:45:00 PM EDT [facility] ([facility]) Outpatient Attender: MEG SAUCEDA MDReferrer: FREDY Butts [id number] 01/13/2020 12:00:00 AM EDT - 01/28/2020 11:20:27 AM EDT Primary osteoarthritis, left [facility] Primary osteoarthritis, left shoulder Immunizations Vaccine Date Status Description Data Source(s) COVID-19 VACCINE Moderna 05/07/2021 12:00:00 AM EST completed [facility] Vaccine Series Complete: YESThis Data wa s Submitted to [facility] Via [employer]. COVID-19 VACCINE Moderna 09/15/2020 12:00:00 AM EDT completed [facility] Vaccine Series Complete: YESThis Data wa s Submitted to [facility] Via [employer]. COVID-19 dose #1 given elsewhere Unspecified 08/18/2020 03:3 4:00 PM EST completed eCW1 ([facility]) COVID-19 dose #1 given elsewhere Unspecified 08/18/2020 03:3 4:00 PM EST completed eCW1 ([facility]) COVID-19 dose #1 given elsewhere Unspecified 08/18/2020 03:3 4:00 PM EST completed eCW1 ([facility]) COVID-19 dose #1 given elsewhere Unspecified 08/18/2020 03:3 4:00 PM EST completed eCW1 ([facility]) COVID-19 dose #1 given elsewhere Unspecified 08/18/2020 03:3 4:00 PM EST completed eCW1 ([facility]) COVID-19 dose #1 given elsewhere Unspecified 08/18/2020 03:3 4:00 PM EST completed eCW1 ([facility]) COVID-19 dose #1 given elsewhere Unspecified 08/18/2020 03:3 4:00 PM EST completed eCW1 ([facility]) COVID-19 dose #1 given elsewhere Unspecified 08/18/2020 03:3 4:00 PM EST completed eCW1 ([facility]) COVID-19 dose #1 given elsewhere Unspecified 08/18/2020 03:3 4:00 PM EST completed eCW1 ([facility]) COVID-19 dose #1 given elsewhere Unspecified 08/18/2020 03:3 4:00 PM EST completed eCW1 ([facility]) COVID-19 dose #1 given elsewhere Unspecified 08/18/2020 03:3 4:00 PM EST completed eCW1 ([facility]) COVID-19 dose #1 given elsewhere Unspecified 08/18/2020 03:3 4:00 PM EST completed eCW1 ([facility]) COVID-19 dose #1 given elsewhere Unspecified 08/18/2020 03:3 4:00 PM EST completed eCW1 ([facility]) COVID-19 dose #1 given elsewhere Unspecified 08/18/2020 03:3 4:00 PM EST completed eCW1 ([facility]) COVID-19 dose #1 given elsewhere Unspecified 08/18/2020 03:3 4:00 PM EST completed eCW1 ([facility]) COVID-19 dose #1 given elsewhere Unspecified 08/18/2020 03:3 4:00 PM EST completed eCW1 ([facility]) COVID-19 VACCINE Moderna 08/18/2020 12:00:00 AM EST completed [facility] Vaccine Series Complete: NOThis Data was Submitted to [facility] Via [employer]. Medications Medication Brand Name Start Date Product Form Dose Route Admi nistrative Instructions Pharmacy Instructions Status Indications Reaction Description Data Source(s) 2.5 % 05/10/2021 12:00:00 AM EST cream with perineal chari licator 56 APPLY RECTALLY THREE TIMES A DAY AND AFTER EACH BOWEL MOVEMENT APPLY RECTALLY THREE TIMES A DAY AND AFTER EACH BOWEL MOVEMENT SOLD: 05/13/2021 [facility] Suprep Bowel Prep Kit Suprep Bowel Prep Kit 05/09/2021 12:00:00 AM EST active MEDENT ([facility]) Hydrocortisone 25 MG/ML Topical Cream [Proctosol] Proctosol HC 05/09/2021 12:00:00 AM EST active M EDENT ([facility]) 100 mcg/0.5 mL 05/07/2021 12:00:00 AM EST suspension 0 INJECT DIRECTED (THIRD DOSE) INJECT DIRECTED (THIRD DOSE) SOLD: 05/07/2021 [facility] 200 mg 04/26/2021 12:00:00 AM EST capsule 30 TAKE ONE CAPSULE BY MOUTH EVERY DAY WITH FOOD TAKE ONE CAPSULE BY MOUTH EVERY DAY WITH FOOD SOLD: 04/27/2021 [facility] Acetaminophen 325 MG / Hydrocodone Madelyn trate 5 MG Oral Tablet HYDROcodone- Acetaminophen 5-325 MG HYDROcodone-Acetaminophen 5-325 MG 04/24/2021 12:00:00 AM EST 1.0 {tablet_as_needed} active [facility] Acetaminophen 325 MG / Hydrocodone Bitartrate 5 MG Ora l Tablet 5-325 mg HYDROCODONE/ACETAMINOPHEN 04/24/2021 12:00:00 AM EST tablet 90 TAKE ONE TABLET BY MOUTH EVERY 8 HOURS NEEDED MAXIMUM DAILY DOSE = 3 TAKE ONE TABLET BY MOUTH EVERY 8 HOURS NEEDED MAXIMUM DAILY DOSE = 3 SOLD: 04/25/2021 [facility] Acetaminophen 325 MG / Hydrocodone Madelyn trate 5 MG Oral Tablet HYDROcodone- Acetaminophen 5-325 MG HYDROcodone-Acetaminophen 5-325 MG 04/24/2021 12:00:00 AM EST 1.0 {tablet_as_needed} active HYDROcodone-Acetaminophen 5-325 MG eCW1 ([facility]) Acetaminophen 325 MG / Hydrocodone Bitartrate 5 MG Ora l Tablet 5-325 mg HYDROCODONE/ACETAMINOPHEN 03/26/2021 12:00:00 AM EDT tablet 90 TAKE ONE TABLET BY MOUTH EVERY 8 HOURS NEEDED MAXIMUM DAILY DOSE = 3 TABLET TAKE ONE TABLET BY MOUTH EVERY 8 HOURS NEEDED MAXIMUM DAILY DOSE = 3 TABLET SOLD: 03/26/2021 [facility] Acetaminophen 325 MG / Hydrocodone Madelyn trate 5 MG Oral Tablet HYDROcodone- Acetaminophen 5-325 MG HYDROcodone-Acetaminophen 5-325 MG 03/24/2021 12:00:00 AM EDT 1.0 {tablet_as_needed} active HYDROcodone-Acetaminophen 5-325 MG [facility]CW1 ([facility]) 40 mg 03/17/2021 12:00:00 AM EDT capsule,delayed release (DR/EC) 60 TAKE ONE CAPSULE BY MOUTH TWICE A DAY TAKE ONE CAPSULE BY MOUTH TWICE A DAY SOLD: 03/18/2021 [facility] 40 mg 03/17/2021 12:00:00 AM EDT capsule,delayed release (DR/EC) 60 TAKE ONE CAPSULE BY MOUTH TWICE A DAY TAKE ONE CAPSULE BY MOUTH TWICE A DAY SOLD: 04/27/2021 [facility] Omeprazole 40 MG Delayed Release Oral Capsule Omeprazole 03/16/2021 12:00:00 AM EDT ORAL active MEDENT ([facility]) Acetaminophen 325 MG / Hydrocodone Bitartrate 5 MG Ora l Tablet 5-325 mg HYDROCODONE/ACETAMINOPHEN 02/25/2021 12:00:00 AM EDT tablet 90 TAKE 1 TABLET BY MOUTH EVERY 8 HOURS NEEDED MAXIMUM DAILY DOSE = 3 TAKE 1 TABLET BY MOUTH EVERY 8 HOURS NEEDED MAXIMUM DAILY DOSE = 3 SOLD: 02/25/2021 [facility] Acetaminophen 325 MG / Hydrocodone Madelyn trate 5 MG Oral Tablet HYDROcodone- Acetaminophen 5-325 MG HYDROcodone-Acetaminophen 5-325 MG 02/23/2021 12:00:00 AM EDT 1.0 {tablet_as_needed} active HYDROcodone-Acetaminophen 5-325 MG eCW1 ([facility]) CPAP mask UNK 01/30/2021 12:00:00 AM EDT active CPAP mask eCW1 ([facility]) CPAP Machine UNK 01/30/2021 12:00:00 AM EDT activ e CPAP Machine eCW1 ([facility]) CPAP mask UNK 01/30/2021 12:00:00 AM EDT active eCW1 ([facility]) CPAP Machine UNK 01/30/2021 12:00:00 AM EDT activ e CPAP Machine eCW1 ([facility]) CPAP Machine UNK 01/30/2021 12:00:00 AM EDT activ e eCW1 ([facility]) CPAP Machine UNK 01/30/2021 12:00:00 AM EDT activ e CPAP Machine eCW1 ([facility]) CPAP mask UNK 01/30/2021 12:00:00 AM EDT active CPAP mask eCW1 ([facility]) CPAP mask UNK 01/30/2021 12:00:00 AM EDT active CPAP mask eCW1 ([facility]) CPAP Machine UNK 01/30/2021 12:00:00 AM EDT activ e CPAP Machine eCW1 ([facility]) CPAP mask UNK 01/30/2021 12:00:00 AM EDT active CPAP mask eCW1 ([facility]) CPAP Machine UNK 01/30/2021 12:00:00 AM EDT activ e CPAP Machine eCW1 ([facility]) CPAP mask UNK 01/30/2021 12:00:00 AM EDT active CPAP mask eCW1 ([facility]) Acetaminophen 325 MG / Hydrocodone Madelyn trate 5 MG Oral Tablet HYDROcodone- Acetaminophen 5-325 MG HYDROcodone-Acetaminophen 5-325 MG 01/27/2021 12:00:00 AM EDT 1.0 {tablet_as_needed} active HYDROcodone-Acetaminophen 5-325 MG eCW1 ([facility]) Acetaminophen 325 MG / Hydrocodone Bitartrate 5 MG Ora l Tablet 5-325 mg HYDROCODONE/ACETAMINOPHEN 01/26/2021 12:00:00 AM EDT tablet 90 TAKE ONE TABLET BY MOUTH EVERY 8 HOURS NEEDED MAXIMUM DAILY DOSE = 3 TAKE ONE TABLET BY MOUTH EVERY 8 HOURS NEEDED MAXIMUM DAILY DOSE = 3 SOLD: 01/27/2021 [facility] 5 mg 01/16/2021 12:00:00 AM EDT tablet 30 TAKE ONE TABLET BY MOUTH EVERY 8 HOURS NEEDED FOR PAIN MAXIMUM DAILY DOSE = 3 TABLETS TAKE ONE TABLET BY MOUTH EVERY 8 HOURS NEEDED FOR PAIN MAXIMUM DAILY DOSE = 3 TABLETS SOLD: 01/17/2021 [facility] Oxycodone Hydrochloride 5 MG Oral Tablet oxyCODONE HCl 5 MG Oral Tablet (Roxicodone) oxyCODONE HCl 5 MG Oral Tablet (Roxicodone) 01/16/2021 12:00:00 AM EDT active One tab PO Q8 lou rs PRN pain, MDD 3 [facility] 5 mg 01/05/2021 12:00:00 AM EDT tablet 42 TAKE ONE TABLET BY MOUTH EVERY 4 TO 6 HOURS NEEDED FOR PAIN, MAXIMUM DAILY DOSE = 6 TAKE ONE TABLET BY MOUTH EVERY 4 TO 6 HOURS NEEDED FOR PAIN, MAXIMUM DAILY DOSE = 6 SOLD: 01/05/2021 [facility] Oxycodone Hydrochloride 5 MG Oral Tablet oxyCODONE HCl 5 MG Oral Tablet (Roxicodone) oxyCODONE HCl 5 MG Oral Tablet (Roxicodone) 12/21/2020 12:00:00 AM EDT active One tab PO Q4-6 h ours PRN pain, MDD 6 [facility] 5 mg 12/21/2020 12:00:00 AM EDT tablet 42 TAKE 1 TABLET BY MOUTH EVERY 4-6 HOURS NEEDED FOR PAIN MAXIMUM DAILY DOSE = 6 TAKE 1 TABLET BY MOUTH EVERY 4-6 HOURS NEEDED FOR PAIN MAXIMUM DAILY DOSE = 6 SOLD: 12/22/2020 [facility] Aspirin 81 MG Delayed Release Oral Table t Aspirin 81 MG Oral Tablet Delayed Release Aspirin 81 MG Oral Tablet Delayed Release 12/09/2020 12:00:00 AM EDT 81 mg Oral active Take 1 tablet by mouth d [facility] Cephalexin 500 MG Oral Capsule CEPHALEXIN 12/09/2020 12:00:00 AM EDT capsule 12 TAKE ONE CAPSULE BY MOUTH FOUR TIMES A DAY FOR 3 DAYS TAKE ONE CAPSULE BY MOUTH FOUR TIMES A DAY FOR 3 DAYS SOLD: 12/09/2020 [facility] 5 mg 12/09/2020 12:00:00 AM EDT tablet 40 TAKE ONE TO TWO TABLETS BY MOUTH EVERY 4 HOURS NEEDED FOR UP TO 4 DAYS MAXIMUM DAILY DOSE = 6 TABLETS TAKE ONE TO TWO TABLETS BY MOUTH EVERY 4 HOURS NEEDED FOR UP TO 4 DAYS MAXIMUM DAILY DOSE = 6 TABLETS SOLD: 12/09/2020 [facility] Aspirin 81 MG Delayed Release Oral Tablet ASPIRIN 2020 12:00:00 AM EDT tablet,delayed release (DR/EC) 42 TAKE ONE TABLET B Y MOUTH EVERY DAY TAKE ONE TABLET BY MOUTH EVERY DAY SOLD: 12/09/2020 [facility] tizanidine 4 MG Oral Tablet TIZANIDINE HCL 12/09/2020 12:00:00 AM EDT tablet 30 TAKE ONE TABLET BY MOUTH EVERY 6 HOURS NEEDED FOR U P TO 10 DAYS TAKE ONE TABLET BY MOUTH EVERY 6 HOURS NEEDED FOR UP TO 10 DAYS SOLD: 12/09/2020 [facility] Acetaminophen 325 MG / Hydrocodone Bitartrate 5 MG Ora l Tablet 5-325 mg HYDROCODONE/ACETAMINOPHEN 11/12/2020 12:00:00 AM EDT tablet 90 TAKE ONE TABLET BY MOUTH EVERY 8 HOURS NEEDED MAXIMUM DAILY DOSE = 3 TAKE ONE TABLET BY MOUTH EVERY 8 HOURS NEEDED MAXIMUM DAILY DOSE = 3 SOLD: 11/12/2020 [facility] Acetaminophen 325 MG / Hydrocodone Madelyn trate 5 MG Oral Tablet Hydrocodone- Acetaminophen 5-325 MG Hydrocodone-Acetaminophen 5-325 MG 11/10/2020 12:00:00 AM EDT 1.0 {tablet_as_needed} active [facility] 200 mg 10/14/2020 12:00:00 AM EDT capsule 30 TAKE ONE CAPSULE BY MOUTH EVERY DAY WITH FOOD TAKE ONE CAPSULE BY MOUTH EVERY DAY WITH FOOD SOLD: 02/22/2021 [facility] 200 mg 10/14/2020 12:00:00 AM EDT capsule 30 TAKE ONE CAPSULE BY MOUTH EVERY DAY WITH FOOD TAKE ONE CAPSULE BY MOUTH EVERY DAY WITH FOOD SOLD: 01/18/2021 [facility] 200 mg 10/14/2020 12:00:00 AM EDT capsule 30 TAKE ONE CAPSULE BY MOUTH EVERY DAY WITH FOOD TAKE ONE CAPSULE BY MOUTH EVERY DAY WITH FOOD SOLD: 11/12/2020 [facility] 200 mg 10/14/2020 12:00:00 AM EDT capsule 30 TAKE ONE CAPSULE BY MOUTH EVERY DAY WITH FOOD TAKE ONE CAPSULE BY MOUTH EVERY DAY WITH FOOD SOLD: 03/25/2021 [facility] 200 mg 10/14/2020 12:00:00 AM EDT capsule 30 TAKE ONE CAPSULE BY MOUTH EVERY DAY WITH FOOD TAKE ONE CAPSULE BY MOUTH EVERY DAY WITH FOOD SOLD: 10/15/2020 [facility] 200 mg 10/14/2020 12:00:00 AM EDT capsule 30 TAKE ONE CAPSULE BY MOUTH EVERY DAY WITH FOOD TAKE ONE CAPSULE BY MOUTH EVERY DAY WITH FOOD SOLD: 12/20/2020 [facility] Acetaminophen 325 MG / Hydrocodone Madelyn trate 5 MG Oral Tablet Hydrocodone- Acetaminophen 5-325 MG Hydrocodone-Acetaminophen 5-325 MG 10/13/2020 12:00:00 AM EDT 1.0 {tablet_as_needed} active Hydrocodone-Acetaminophen 5-325 MG eCW1 ([facility]) Acetaminophen 325 MG / Hydrocodone Madelyn trate 5 MG Oral Tablet Hydrocodone- Acetaminophen 5-325 MG Hydrocodone-Acetaminophen 5-325 MG 10/13/2020 12:00:00 AM EDT 1.0 {tablet_as_needed} active Hydrocodone-Acetaminophen 5-325 MG eCW1 ([facility]) CPAP Machine UNK 10/07/2020 12:00:00 AM EDT activ e CPAP Machine eCW1 ([facility]) CPAP Machine UNK 10/07/2020 12:00:00 AM EDT activ e eCW1 ([facility]) CPAP mask UNK 10/07/2020 12:00:00 AM EDT active CPAP mask eCW1 ([facility]) CPAP mask UNK 10/07/2020 12:00:00 AM EDT active eCW1 ([facility]) CPAP Machine UNK 10/07/2020 12:00:00 AM EDT activ e CPAP Machine eCW1 ([facility]) CPAP mask UNK 10/07/2020 12:00:00 AM EDT active CPAP mask eCW1 ([facility]) CPAP mask UNK 10/07/2020 12:00:00 AM EDT active CPAP mask eCW1 ([facility]) CPAP mask UNK 10/07/2020 12:00:00 AM EDT active CPAP mask eCW1 ([facility]) CPAP Machine UNK 10/07/2020 12:00:00 AM EDT activ e CPAP Machine eCW1 ([facility]) CPAP Machine UNK 10/07/2020 12:00:00 AM EDT activ e CPAP Machine eCW1 ([facility]) CPAP mask UNK 10/07/2020 12:00:00 AM EDT active CPAP mask eCW1 ([facility]) CPAP Machine UNK 10/07/2020 12:00:00 AM EDT activ e eCW1 ([facility]) CPAP mask UNK 10/07/2020 12:00:00 AM EDT active CPAP mask eCW1 ([facility]) CPAP Machine UNK 10/07/2020 12:00:00 AM EDT activ e CPAP Machine eCW1 ([facility]) CPAP Machine UNK 10/07/2020 12:00:00 AM EDT activ e CPAP Machine eCW1 ([facility]) CPAP mask UNK 10/07/2020 12:00:00 AM EDT active CPAP mask eCW1 ([facility]) CPAP Machine UNK 10/07/2020 12:00:00 AM EDT activ e CPAP Machine eCW1 ([facility]) CPAP mask UNK 10/07/2020 12:00:00 AM EDT active eCW1 ([facility]) CPAP mask UNK 10/07/2020 12:00:00 AM EDT active CPAP mask eCW1 ([facility]) CPAP Machine UNK 10/07/2020 12:00:00 AM EDT activ e CPAP Machine eCW1 ([facility]) CPAP Machine UNK 10/07/2020 12:00:00 AM EDT activ e CPAP Machine eCW1 ([facility]) CPAP Machine UNK 10/07/2020 12:00:00 AM EDT activ e CPAP Machine eCW1 ([facility]) CPAP mask UNK 10/07/2020 12:00:00 AM EDT active CPAP mask eCW1 ([facility]) CPAP mask UNK 10/07/2020 12:00:00 AM EDT active CPAP mask eCW1 ([facility]) CPAP Machine UNK 10/07/2020 12:00:00 AM EDT activ e CPAP Machine eCW1 ([facility]) CPAP mask UNK 10/07/2020 12:00:00 AM EDT active CPAP mask eCW1 ([facility]) CPAP Machine UNK 10/07/2020 12:00:00 AM EDT activ e CPAP Machine eCW1 ([facility]) CPAP mask UNK 10/07/2020 12:00:00 AM EDT active CPAP mask eCW1 ([facility]) 5-325 mg 09/15/2020 12:00:00 AM EDT tablet 90 TAKE ONE TABLET BY MOUTH EVERY 8 HOURS NEEDED FOR PAIN MAXIMUM DAILY DOSE = 3 TABLETS TAKE ONE TABLET BY MOUTH EVERY 8 HOURS NEEDED FOR PAIN MAXIMUM DAILY DOSE = 3 TABLETS SOLD: 09/15/2020 [facility] Rosuvastatin calcium 40 MG Oral Tablet ROSUVASTATIN CALCIUM 09/14/2020 12:00:00 AM EDT tablet 30 TAKE ONE TABLET BY MOUTH DEVON RY DAY TAKE ONE TABLET BY MOUTH EVERY DAY SOLD: 02/25/2021 [facility] Rosuvastatin calcium 40 MG Oral Tablet ROSUVASTATIN CALCIUM 09/14/2020 12:00:00 AM EDT tablet 30 TAKE ONE TABLET BY MOUTH DEVON RY DAY TAKE ONE TABLET BY MOUTH EVERY DAY SOLD: 12/13/2020 [facility] Rosuvastatin calcium 40 MG Oral Tablet ROSUVASTATIN CALCIUM 09/14/2020 12:00:00 AM EDT tablet 30 TAKE ONE TABLET BY MOUTH DEVON RY DAY TAKE ONE TABLET BY MOUTH EVERY DAY SOLD: 10/22/2020 [facility] Rosuvastatin calcium 40 MG Oral Tablet ROSUVASTATIN CALCIUM 09/14/2020 12:00:00 AM EDT tablet 30 TAKE ONE TABLET BY MOUTH DEVON RY DAY TAKE ONE TABLET BY MOUTH EVERY DAY SOLD: 04/19/2021 [facility] Rosuvastatin calcium 40 MG Oral Tablet ROSUVASTATIN CALCIUM 09/14/2020 12:00:00 AM EDT tablet 30 TAKE ONE TABLET BY MOUTH DEVON RY DAY TAKE ONE TABLET BY MOUTH EVERY DAY SOLD: 09/15/2020 [facility] Acetaminophen 325 MG / Hydrocodone Madelyn trate 5 MG Oral Tablet Hydrocodone- Acetaminophen 5-325 MG Hydrocodone-Acetaminophen 5-325 MG 09/13/2020 12:00:00 AM EDT 1.0 {tablet_as_needed} active Hydrocodone-Acetaminophen 5-325 MG [facility]CW1 [facility] Acetaminophen 325 MG / Hydrocodone Madelyn trate 5 MG Oral Tablet Hydrocodone- Acetaminophen 5-325 MG Hydrocodone-Acetaminophen 5-325 MG 09/13/2020 12:00:00 AM EDT 1.0 {tablet_as_needed} active Hydrocodone-Acetaminophen 5-325 MG [facility]CW[facility] Acetaminophen 325 MG / Hydrocodone Madelyn trate 5 MG Oral Tablet Hydrocodone- Acetaminophen 5-325 MG Hydrocodone-Acetaminophen 5-325 MG 09/13/2020 12:00:00 AM EDT 1.0 {tablet_as_needed} active Hydrocodone-Acetaminophen 5-325 MG eCW1 ([facility]) telmisartan 80 MG Oral Tablet TELMISARTAN 08/18/2020 12:00:00 AM EST tablet 30 TAKE ONE TABLET BY MOUTH EVERY DAY TAKE ONE TABLET BY MOUTH EVERY DAY SOLD: 08/19/2020 [facility] telmisartan 80 MG Oral Tablet TELMISARTAN 08/18/2020 12:00:00 AM EST tablet 30 TAKE ONE TABLET BY MOUTH EVERY DAY TAKE ONE TABLET BY MOUTH EVERY DAY SOLD: 12/13/2020 [facility] telmisartan 80 MG Oral Tablet TELMISARTAN 08/18/2020 12:00:00 AM EST tablet 30 TAKE ONE TABLET BY MOUTH EVERY DAY TAKE ONE TABLET BY MOUTH EVERY DAY SOLD: 02/22/2021 [facility] telmisartan 80 MG Oral Tablet Telmisartan 80 MG Oral T ablet (MICARDIS) Telmisartan 80 MG Oral Tablet (MICARDIS) 08/18/2020 12:00:00 AM EST 80 mg Oral active Take 80 mg by mouth daily [facility] telmisartan 80 MG Oral Tablet TELMISARTAN 08/18/2020 12:00:00 AM EST tablet 30 TAKE ONE TABLET BY MOUTH EVERY DAY TAKE ONE TABLET BY MOUTH EVERY DAY SOLD: 04/27/2021 [facility] telmisartan 80 MG Oral Tablet TELMISARTAN 08/18/2020 12:00:00 AM EST tablet 30 TAKE ONE TABLET BY MOUTH EVERY DAY TAKE ONE TABLET BY MOUTH EVERY DAY SOLD: 09/29/2020 [facility] 5-325 mg 08/17/2020 12:00:00 AM EST tablet 90 TAKE ONE TABLET BY MOUTH EVERY 8 HOURS NEEDED MAXIMUM DAILY DOSE = 3 TABLETS TAKE ONE TABLET BY MOUTH EVERY 8 HOURS NEEDED MAXIMUM DAILY DOSE = 3 TABLETS SOLD: 08/17/2020 [facility] Acetaminophen 325 MG / Hydrocodone Madelyn trate 5 MG Oral Tablet Hydrocodone- Acetaminophen 5-325 MG Hydrocodone-Acetaminophen 5-325 MG 08/15/2020 12:00:00 AM EST 1.0 {tablet_as_needed} active Hydrocodone-Acetaminophen 5-325 MG eCW1 [facility]) Acetaminophen 325 MG / Hydrocodone Madelyn trate 5 MG Oral Tablet Hydrocodone- Acetaminophen 5-325 MG Hydrocodone-Acetaminophen 5-325 MG 08/15/2020 12:00:00 AM EST 1.0 {tablet_as_needed} active Hydrocodone-Acetaminophen 5-325 MG eCW1 ([facility]) 500 mg 08/11/2020 12:00:00 AM EST capsule 8 TAKE 4 CAPSULES BY MOUTH 1 HOUR PRIOR TO APPOINTMENT TAKE 4 CAPSULES BY MOUTH 1 HOUR PRIOR TO APPOINTMENT S OLD: 08/16/2020 [facility] Acetaminophen 325 MG / Hydrocodone Madelyn trate 5 MG Oral Tablet Hydrocodone- Acetaminophen 5-325 MG Hydrocodone-Acetaminophen 5-325 MG 07/19/2020 12:00:00 AM EST 1.0 {tablet_as_needed} active Hydrocodone-Acetaminophen 5-325 MG eCW1 ([facility]) 5-325 mg 07/19/2020 12:00:00 AM EST tablet 90 TAKE 1 TABLET BY MOUTH EVERY 8 HOURS NEEDED MAXIMUM DAILY DOSE = 3 TAKE 1 TABLET BY MOUTH EVERY 8 HOURS NEEDED MAXIMUM DAILY DOSE = 3 SOLD: 07/19/2020 [facility] Acetaminophen 325 MG / Hydrocodone Madelyn trate 5 MG Oral Tablet Hydrocodone- Acetaminophen 5-325 MG Hydrocodone-Acetaminophen 5-325 MG 07/19/2020 12:00:00 AM EST 1.0 {tablet_as_needed} active Hydrocodone-Acetaminophen 5-325 MG eCW1 ([facility]) 200 mg 06/21/2020 12:00:00 AM EST capsule 60 TAKE ONE CAPSULE BY MOUTH TWICE A DAY WITH FOOD TAKE ONE CAPSULE BY MOUTH TWICE A DAY WITH FOOD SOLD: 06/22/2020 [facility] 200 mg 06/21/2020 12:00:00 AM EST capsule 60 TAKE ONE CAPSULE BY MOUTH TWICE A DAY WITH FOOD TAKE ONE CAPSULE BY MOUTH TWICE A DAY WITH FOOD SOLD: 08/07/2020 [facility] 5-325 mg 06/19/2020 12:00:00 AM EST tablet 90 TAKE ONE TABLET BY MOUTH EVERY 8 HOURS NEEDED MAXIMUM DAILY DOSE = 3 TAKE ONE TABLET BY MOUTH EVERY 8 HOURS NEEDED MAXIMUM DAILY DOSE = 3 SOLD: 06/19/2020 [facility] Acetaminophen 325 MG / Hydrocodone Madelyn trate 5 MG Oral Tablet Hydrocodone- Acetaminophen 5-325 MG Hydrocodone-Acetaminophen 5-325 MG 06/16/2020 12:00:00 AM EST 1.0 {tablet_as_needed} active Hydrocodone-Acetaminophen 5-325 MG eCW1 ([facility]) Acetaminophen 325 MG / Hydrocodone Madelyn trate 5 MG Oral Tablet Hydrocodone- Acetaminophen 5-325 MG Hydrocodone-Acetaminophen 5-325 MG 06/16/2020 12:00:00 AM EST 1.0 {tablet_as_needed} active Hydrocodone-Acetaminophen 5-325 MG eCW1 ([facility]) 5-325 mg 05/21/2020 12:00:00 AM EST tablet 90 TAKE ONE TABLET BY MOUTH EVERY 8 HOURS NEEDED MAXIMUM DAILY DOSE = 3 TAKE ONE TABLET BY MOUTH EVERY 8 HOURS NEEDED MAXIMUM DAILY DOSE = 3 SOLD: 05/21/2020 [facility] 5-325 mg 04/22/2020 12:00:00 AM EST tablet 90 TAKE ONE TABLET BY MOUTH EVERY 8 HOURS NEEDED MAXIMUM DAILY DOSE = 3 TAKE ONE TABLET BY MOUTH EVERY 8 HOURS NEEDED MAXIMUM DAILY DOSE = 3 SOLD: 04/22/2020 [facility] Acetaminophen 325 MG / Hydrocodone Madelyn trate 5 MG Oral Tablet Hydrocodone- Acetaminophen 5-325 MG Hydrocodone-Acetaminophen 5-325 MG 04/21/2020 12:00:00 AM EST 1.0 {tablet_as_needed} active Hydrocodone-Acetaminophen 5-325 MG eCW1 ([facility]) Acetaminophen 325 MG / Hydrocodone Madelyn trate 5 MG Oral Tablet Hydrocodone- Acetaminophen 5-325 MG Hydrocodone-Acetaminophen 5-325 MG 04/21/2020 12:00:00 AM EST 1.0 {tablet_as_needed} active Hydrocodone-Acetaminophen 5-325 MG eCW1 ([facility]) telmisartan 20 MG Oral Tablet TELMISARTAN 04/05/2020 12:00:00 AM EDT tablet 30 TAKE ONE TABLET BY MOUTH EVERY MORNING TAKE ONE TABLET BY MO UTH EVERY MORNING SOLD: 05/06/2020 [facility] telmisartan 20 MG Oral Tablet TELMISARTAN 04/05/2020 12:00:00 AM EDT tablet 30 TAKE ONE TABLET BY MOUTH EVERY MORNING TAKE ONE TABLET BY MO UTH EVERY MORNING SOLD: 07/03/2020 [facility] telmisartan 20 MG Oral Tablet TELMISARTAN 04/05/2020 12:00:00 AM EDT tablet 30 TAKE ONE TABLET BY MOUTH EVERY MORNING TAKE ONE TABLET BY MO UTH EVERY MORNING SOLD: 06/06/2020 [facility] telmisartan 20 MG Oral Tablet TELMISARTAN 04/05/2020 12:00:00 AM EDT tablet 30 TAKE ONE TABLET BY MOUTH EVERY MORNING TAKE ONE TABLET BY MO UTH EVERY MORNING SOLD: 07/27/2020 [facility] telmisartan 20 MG Oral Tablet TELMISARTAN 04/05/2020 12:00:00 AM EDT tablet 30 TAKE ONE TABLET BY MOUTH EVERY MORNING TAKE ONE TABLET BY MO UTH EVERY MORNING SOLD: 08/19/2020 [facility] telmisartan 20 MG Oral Tablet TELMISARTAN 04/05/2020 12:00:00 AM EDT tablet 30 TAKE ONE TABLET BY MOUTH EVERY MORNING TAKE ONE TABLET BY MO UTH EVERY MORNING SOLD: 04/05/2020 [facility] telmisartan 20 MG Oral Tablet Telmisartan 20 MG Telmisartan 20 MG 04/04/2020 12:00:00 AM EDT 1.0 {tablet} active Te lmisartan 20 MG [facility] telmisartan 20 MG Oral Tablet Telmisartan 20 MG Telmisartan 20 MG 04/04/2020 12:00:00 AM EDT 1.0 {tablet} active Te lmisartan 20 MG eCW1 ([facility]) telmisartan 20 MG Oral Tablet Telmisartan 20 MG Telmisartan 20 MG 04/04/2020 12:00:00 AM EDT 1.0 {tablet} active Te lmisartan 20 MG eCW1 ([facility]) telmisartan 20 MG Oral Tablet Telmisartan 20 MG Telmisartan 20 MG 04/04/2020 12:00:00 AM EDT 1.0 {tablet} active Te lmisartan 20 MG eCW1 ([facility]) telmisartan 80 MG Oral Tablet Telmisartan 80 MG Telmisartan 80 MG 04/04/2020 12:00:00 AM EDT active Telmisar martinez 80 MG eCW1 ([facility]) telmisartan 20 MG Oral Tablet Telmisartan 20 MG Telmisartan 20 MG 04/04/2020 12:00:00 AM EDT 1.0 {tablet} active Te lmisartan 20 MG eCW1 ([facility]) telmisartan 80 MG Oral Tablet Telmisartan 80 MG Telmisartan 80 MG 04/04/2020 12:00:00 AM EDT active Telmisar martinez 80 MG eCW1 ([facility]) telmisartan 80 MG Oral Tablet Telmisartan 80 MG Telmisartan 80 MG 04/04/2020 12:00:00 AM EDT active Telmisar martinez 80 MG eCW1 ([facility]) telmisartan 20 MG Oral Tablet Telmisartan 20 MG Telmisartan 20 MG 04/04/2020 12:00:00 AM EDT 1.0 {tablet} active Te lmisartan 20 MG eCW1 ([facility]) telmisartan 80 MG Oral Tablet Telmisartan 80 MG Telmisartan 80 MG 04/04/2020 12:00:00 AM EDT active Telmisar martinez 80 MG eCW1 ([facility]) telmisartan 80 MG Oral Tablet Telmisartan 80 MG Telmisartan 80 MG 04/04/2020 12:00:00 AM EDT active Telmisar martinez 80 MG eCW1 ([facility]) telmisartan 20 MG Oral Tablet Telmisartan 20 MG Telmisartan 20 MG 04/04/2020 12:00:00 AM EDT 1.0 {tablet} active Te lmisartan 20 MG eCW1 ([facility]) telmisartan 80 MG Oral Tablet Telmisartan 80 MG Telmisartan 80 MG 04/04/2020 12:00:00 AM EDT active e CW1 ([facility]) telmisartan 20 MG Oral Tablet Telmisartan 20 MG Telmisartan 20 MG 04/04/2020 12:00:00 AM EDT 1.0 {tablet} active Te lmisartan 20 MG eCW1 ([facility]) telmisartan 80 MG Oral Tablet Telmisartan 80 MG Telmisartan 80 MG 04/04/2020 12:00:00 AM EDT 1.0 {tablet} active Te lmisartan 80 MG eCW1 ([facility]) 5-325 mg 03/24/2020 12:00:00 AM EDT tablet 90 TAKE ONE TABLET BY MOUTH EVERY 8 HOURS NEEDED MAXIMUM DAILY DOSE = 3 TAKE ONE TABLET BY MOUTH EVERY 8 HOURS NEEDED MAXIMUM DAILY DOSE = 3 SOLD: 03/24/2020 [facility] 40 mg 03/02/2020 12:00:00 AM EDT capsule,delayed release (DR/EC) 60 TAKE ONE CAPSULE BY MOUTH TWICE A DAY TAKE ONE CAPSULE BY MOUTH TWICE A DAY SOLD: 04/22/2020 [facility] 40 mg 03/02/2020 12:00:00 AM EDT capsule,delayed release (DR/EC) 60 TAKE ONE CAPSULE BY MOUTH TWICE A DAY TAKE ONE CAPSULE BY MOUTH TWICE A DAY SOLD: 06/16/2020 [facility] 40 mg 03/02/2020 12:00:00 AM EDT capsule,delayed release (DR/EC) 60 TAKE ONE CAPSULE BY MOUTH TWICE A DAY TAKE ONE CAPSULE BY MOUTH TWICE A DAY SOLD: 01/18/2021 [facility] 40 mg 03/02/2020 12:00:00 AM EDT capsule,delayed release (DR/EC) 60 TAKE ONE CAPSULE BY MOUTH TWICE A DAY TAKE ONE CAPSULE BY MOUTH TWICE A DAY SOLD: 11/12/2020 [facility] 40 mg 03/02/2020 12:00:00 AM EDT capsule,delayed release (DR/EC) 60 TAKE ONE CAPSULE BY MOUTH TWICE A DAY TAKE ONE CAPSULE BY MOUTH TWICE A DAY SOLD: 09/29/2020 [facility] 40 mg 03/02/2020 12:00:00 AM EDT capsule,delayed release (DR/EC) 60 TAKE ONE CAPSULE BY MOUTH TWICE A DAY TAKE ONE CAPSULE BY MOUTH TWICE A DAY SOLD: 08/07/2020 [facility] 200 mg 06/29/2019 12:00:00 AM EST capsule 60 TAKE ONE CAPSULE BY MOUTH TWICE A DAY WITH FOOD TAKE ONE CAPSULE BY MOUTH TWICE A DAY WITH FOOD SOLD: 04/22/2020 [facility] Insurance Providers Payer name Policy type / Coverage type Policy ID Covered libertarian ID Covered libertarian's relationship to larson Policy Larson Plan Information [employer] [id number] Self [id number] Lif[employer] [facility] [id number] Self [id number] [employer] Part B .[id number] [employer] () Workers Compensation [id number]9.991.455216.0 Self [id number] [employer] [facility] Workers Compensation [id number] 08.02.830.1.627579.3.227.99.[address].78[address]66.[id number] [employer] () Workers Compensation [id number] .0.1.418089.3.227.99.991.710025.0 Self [id number] [employer] [facility] Workers Compensation [id number] 08.02.830.1.195350.3.227.99.991.408461.0 Self [id number] [employer] [facility] Workers Compensation [id number] 2.16.840.1.326136.3.227.99.991.911816.0 Self [id number] [employer] [facility] Workers Compensation [id number] 2.840.1.474567.3.227.99.991.271470.0 Self [id number] [employer] [facility] Workers Compensation [id number] 2.840.1.432447.3.227.99.991.206332.0 Self [id number] [employer] [facility] Workers Compensation [id number] 2.840.1.728915.3.227.99.991.561712.0 Self [id number] [employer] [facility] Workers Compensation [id number] 2.840.1.289527.3.227.99.991.127415.0 Self [id number] [employer] [facility] Workers Compensation [id number] 2.840.1.471829.3.227.99.991.269660.0 Self [id number] [employer] [facility] Workers Compensation [id number] 2.840.1.356853.3.227.99.991.415125.0 Self [id number] [employer] [facility] Workers Compensation [id number] 2.840.1.957326.3.227.99.991.511195.0 Self [id number] [employer] [facility] Workers Compensation [id number] 2.840.1.874118.3.227.99.[address]28[id number] [employer] () Workers Compensation [id number] Self [employer] [facility] Workers Compensation [id number] 2.840.1.066950.3.227.99.[address]42[id number] [employer] ([employer] Workers Compensation [id number] 2.16840.1.316633.3.227.99.991.307457.0 Self [id number] [employer] [facility] Workers Compensation [id number] 2.840.1.189444.3.227.99.991.662824.0 Self [id number] [employer] [facility] Workers Compensation [id number] 2.840.1.458873.3.227.99.991.352627.0 Self [id number] [employer] [facility] Workers Compensation [id number] 2.840.1.175627.3.227.99.991.210127.0 Self [id number] [employer] [facility] Workers Compensation [id number] 2.0.1.011604.3.227.99.991.018612.0 Self [id number] [employer] [facility] Workers Compensation [id number] 2.0.1.834391.3.227.99.991.347040.0 Self [id number] [employer] [facility] Workers Compensation [id number] 2.840.1.243295.3.227.99.991.546918.0 Self [id number] [employer] [facility] Workers Compensation [id number] 2.0.1.903101.3.227.99.991.440127.0 Self [id number] [employer] [facility] Workers Compensation [id number] 2.0.1.101515.3.227.99.991.129822.0 Self [id number] [employer] [facility] Workers Compensation [id number] 2.840.1.653318.3.227.99.991.186174.0 Self [id number] [employer] [facility] Workers Compensation [id number] Self [facility] [facility] Part B [id number] 2.0.1.099651.3.227.99.991.507276.0 Self [id number] [employer] [facility] Part B [id number] 2.0.1.184485.3.227.99.991.354314.0 Self [id number] BS [facility] Part B [id number] 2.16.840.1.090784.3.227.99.991.641573.0 Self [id number] [facility] [place] [facility] [id number] 2.16840.1.974428.3.227.99.991.223472.0 Self [id number] [facility] [place] [facility] [id number] 2.0.1.754275.3.227.99.991.371540.0 Self [id number] [facility] [place] [facility] [id number] 2.0.1.610521.3.227.99.991.635491.0 Self [id number] [facility] [place] [facility] [id number] 2.0.1.518103.3.227.99.991.677894.0 Self [id number] [facility] [place] [facility] [id number] 2.0.1.929024.3.227.99.991.837119.0 Self [id number] [employer] [place] [employer] [id number] 2.840.1.958269.3.227.99.991.192589.0 Self [id number] [employer] [place] [employer] [id number] 2.16840.1.414376.3.227.99.991.225220.0 Self [id number] [employer] [place] [employer] [id number] 2.0.1.767304.3.227.99.991.606815.0 Self [id number] [employer] [place] [employer] [id number] 2.840.1.367758.3.227.99.991.097509.0 Self [id number] [employer] [place] [employer] [id number] 2.16840.1.587215.3.227.99.991.986030.0 Self [id number] [employer] [place] [employer] [id number] 2.16840.1.913592.3.227.99.991.984524.0 Self [id number] [employer] [place] [employer] [id number] 2.16840.1.521886.3.227.99.991.865392.0 Self [id number] [employer] [place] [employer] [id number] 2.16840.1.889917.3.227.99.991.088925.0 Self [id number] [employer] [place] [employer] [id number] 2.0.1.664845.3.227.99.991.591586.0 Self [id number] [employer] [place] [employer] [id number] 2.840.1.164143.3.227.99.991.573124.0 Self [id number] BS [facility] Part B [id number] 2.840.1.791478.3.227.99.991.402180.0 Self [id number] BS [facility] Part B [id number] 2.16840.1.936751.3.227.99.991.487143.0 Self [id number] BS [facility] Part B [id number] 2.16840.1.391981.3.227.99.991.827223.0 Self [id number] BS [place] [employer] [id number] 2.16840.1.869979.3.22 7.99.991.49018.0 Self [id number] [employer] [place] [employer] [place]/307 [id number] SP [id number] [employer] [place] [employer] [place] 302/307 [id number] SP [id number] [employer] [place] PPO 302/307 [id number] SP [id number] [employer] C [id number] Self [id number] [employer] [place] PPO 302/307 [id number] SP [id number] [employer] [place] [employer] PPO 302/307 [id number] SP [id number] WORKER'S COMP [id number] [facility] [id number] [facility] Workers Compensation [id number] 2.1.388504.3.227.99.991.242703.0 Self [id number] [facility] Workers Compensation [id number] .1.410736.3.227.99.991.280138.0 Self [id number] [facility] Workers Compensation [id number] .1.499778.3.227.99.991.396360.0 Self [id number] [facility] Workers Compensation [id number] 20.1.228618.3.227.99.991.034525.0 Self [id number] [facility] Workers Compensation [id number] .1.255257.3.227.99.991.614583.0 Self [id number] WORKER'S COMP [id number] [facility] Workers Compensation [id number] 2.1.971348.3.227.99.991.103111.0 Self [id number] [facility] Workers Compensation [id number] 2.1.724772.3.227.99.991.931142.0 Self [id number] [employer] [id number] Self [id number] INSURANCE COVID-19 COVID [place] OVID INSURANCE COVID-19 [id number] [id number] [employer] [place] Blue [employer]/B lue Shield [id number] Self [id number] ANSI-Commercial [id number] [id number] [facility] [id number] [employer] [place] [employer] [id number] 2.16.840.1.081172.3.227.99.6619.1844.0 Self [id number] ANSI-Commercial [id number] ANSI-Commercial [id number] ANSI-Commercial [id number] [employer] O [id number] S [id number] ANSI-Commercial [id number] ANSI-Commercial [id number] [employer] [id number] SP [id number] ANSI-Commercial [id number] [employer] [place] PPO 302/307 [id number] SP [id number] ANSI-Commercial [id number] [employer] BCBS B [id number] S [id number] BS [employer] [place] [employer] [id number] .16.840.1.933969.3.227.99.6619.1844.0 Self [id number] BS [employer] [place] [employer] [id number] 2.16.840.1.848991.3.227.99.6619.1844.0 Self [id number] ANSI-Commercial [id number] ANSI-Commercial [id number] [facility] BS [id number] 18 [id number] ANSI-Commercial [id number] ANSI-Commercial [id number] ANSI-Commercial [id number] ANSI-Commercial [id number] ANSI-Commercial [id number] ANSI-Commercial [id number] ANSI-Commercial [id number] ANSI-Commercial [id number] ANSI-Commercial [id number] ANSI-Commercial [id number] [facility] [address] Self ANSI-Commercial [id number] ANSI-Commercial [id number] ANSI-Commercial [id number] ANSI-Commercial [id number]-[id number] ANSI-Commercial [id number]-[id number] ANSI-Commercial [id number]-[id number]-mhif-[id number] ANSI-Commercial [id number] ANSI-Commercial [id number] ANSI-Commercial [id number]-[id number] ANSI-Commercial [id number]-[id number] ANSI-Commercial [id number]-[id number] [employer] [place] [employer] PPO 302/307 [id number] SP [id number] ANSI-Commercial [id number] ANSI-Commercial [id number]-[id number] ANSI-Commercial [id number] ANSI-Commercial [id number] ANSI-Commercial [id number] [employer] [place] PPO 302/307 [id number] SP [id number] ANSI-Commercial [id number] ANSI-Commercial [id number]-[id number] Problems, Conditions, and Diagnoses Code Display Name Description Problem Type Effective Dates Data Source(s) Z96.612 Presence of left artificial shoulder jamin nt Presence of left artificial shoulder joint Diagnosis 02/22/2021 09:58:20 AM EDT [facility] M25.512 Pain in left shoulder Pain in left shoulder Diagnosis 12/26/2020 09:39:40 AM EDT [facility] Primary osteoarthritis of left shoulder [M19.012] Primary osteoarthritis of left shoulder [M19.012] Diagnosis 12/09/2020 06:02:00 AM EDT [facility] R40.0 [id number] Daytime somnolence Problem 10/07/2020 12:0 0:00 AM EDT [facility] K21.00 [id number] Gastroesophageal ref lux disease with 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 Problem 09/13/2020 12:00:00 AM EDT eCW1 ([facility]) K22.70 [id number] 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 Pro blem 09/13/2020 12:00:00 AM EDT [facility] F51.04 [id number] Psychophysiological insomnia Problem 04/04/2020 12:00:00 AM EDT [facility]) [id number] Lau's esophagus Lau's esophagus Problem 1 12:00:00 AM EDT [facility] ([facility]) Surgeries/Procedures Procedure Description Date Indications Data Source(s) OFFICE OUTPATIENT VISIT 25 MINUTES 05/09/2021 12:00:00 AM EST [facility] ([facility]) UPPER NDSC BIOPSY SINGLE/MULTIPLE 05/09/2020 12:00:00 AM EST [facility] ([facility]) Results ID Date Data Source [id number] 05/17/2021 09:45:00 AM EST [facility] Name Value Range Interpretation Code Description Data Deanna rce(s) Supporting Document(s) SARS-CoV-2 (COVID-19) RNA [Presence] in Respiratory specimen by KATY with probe detection Not Detected [facility] This lab was ordered by [facility] and reported by [employer]. ID Date Data Source [id number] 03/06/2021 05:58:03 PM EDT [facility] Name Value Range Interpretation Code Description Data Deanna rce(s) Supporting Document(s) Progress Note [facility] MGFOPj8zCoOPXfNl15/SFFaoFWDir9HnQUxjYGb9NEpfHTQdP4LeFGF0wI1lJOV7QIpXIfKgJzAnKBTp lbm [file] ICAgICAgICAgICAgICAgICAgICAgICAgICAgICAgIC ZjWDLuCEZwRMAhRADjSFUdPXEkTTVjHQQvFGYgJCIjYKIzYSPyAEHzBRDdVIUhEAHnOPIoAFNwFQ8IKH AgICAgICAgICAgICAgICAgICAgICAgICAgICAgICAgICAgICAgICAgICAgICAgICAgICAgICAgICAgIC AgICAgICAgICAgICAgICAgICAgICAgICAgICAgICAg CLMrHAHbQO0FEPZjLIQlVFIfEXFjIYFaYARyCZVjKOZpGIAcEZJpIRAaZEUpJNChZLJnQXTuOTFhZCKg ASVgKUGhDIDtQXHkGOGmNXIcGPSdUQOsQNNyTKZxZNEcSZPyCTRoTUMkJOVcLOQdIQ8CWMEnUJUgLPMm ICAgICAgICAgICAgICAgICAgICAgICAgICAgICAgIC AgICAgICAgICAgICAgICAgICAgICAgICAgICAgICAgICAgICAgICAgICAgICAgICAgICAgICAgICAgIA 0KICAgICAgICAgICAgICAgICAgICAgICAgICAgICAgICAgICAgICAgICAgICAgICAgICAgICAgICAgIC AgICAgICAgICAgICAgICAgICAgICAgICAgICAgICAg DOMdVOAwSFZlPX6RBMZsBGKySPObYQBfEIQnLQZlOHAhNXNcZSXlCZHkNLDoAUGeUOYuFKOhHAZhKXPn JBFsSNDwPEMyWIBcGQKiCLVdFLSdNHQzZRGyDSXpFHNrWZToDXAhBIHnRMZwDBEoKZZgAW8EGMEeHSDa ICAgICAgICAgICAgICAgICAgICAgICAgICAgICAgIC AgICAgICAgICAgICAgICAgICAgICAgICAgICAgICAgICAgICAgICAgICAgICAgICAgICAgICAgICAgIC FaJQ0YEMPyAIUbUFDgTEQuLPQvJXWhYKSlDFAsWRMtPRDyWMFkSFWtZLPfCQBnYGWuVKEkVZPpRMRcTK AgICAgICAgICAgICAgICAgICAgICAgICAgICAgICAg AJFwNUPcYILeCNCvVH6OQVMzNQYvNGQxMAQnOBGdSKOfPGFkLFIqZNKsYUZyQNSwJXCbCZUiOQOfLUKu LHUsRYDaLMZjAEIvCYMdDGTmCIHbOEUwMFKkUSEfQGAdEYGnZUDgSEGeDWMmUJJcEFZkQRMoES2OINTn ICAgICAgICAgICAgICAgICAgICAgICAgICAgICAgIC AgICAgICAgICAgICAgICAgICAgICAgICAgICAgICAgICAgICAgICAgICAgICAgICAgICAgICAgICAgIC GtWQOpKF8FKX28oFPbw6J4KXYxIK4jspl/Nv2OLBdgfsPibPRyPO8FDoCxSK9cmw9TCaTbES3byz5FNR nAGaYaC0U2cPElVIZgQHQKJxKfU20zPFvfIt68WPbr KJPyIfOgRNj0Bq1ARlYiV4kaPSMqTtE3DTSqHxMdYUdcXT5Fz7IbgNOiRKh+Hv7LDB9qe9TfGSrcMCNd PE5sep5QZQsNFoShM7QhojT2MEWlXJXeMt9YENMsSBMgrAZiUVAkMHSYPyNlW5WhiO36HHKJDu6+DQpl dfBfDxuIFdZjANJah3QfVMm9XF5LLJMiEZq9nQQlTC MvH3Yrd3JbCw21MFLzDqnyV5S9oK2oLhIUBPH5GZPhKZ9TUWC7FWkiMK2oMQUaHXR5WyA4AFRXOH1QWK IoOBVecMKnPSUsOQWZHU6JBBopDAD2DVPjalSweUWyGVtzVI7TDQDlzgSgMTcfHTXTUZa+Tx2NFH0vj9 EiFIjaJSSwRF4jmh1ZARsKLnPkO2X5kXZtW6P0ZSpq Zd1VGSYmUXAvOFjlVKYFBOlsCX7RLT2sdgK7MC5WoZKcOXYqEVHxrBTuNVy9E69qgFPiBQvzYS4IMMW+ Lizz+Tr1HJZZgNQApIPRxXtOfYGQLLbOxI2CdH9DNd8RsZ7LqSG43pIqfhyCyPEkzMX8DRK1nMJEeHQHX ZT9QzJGzhX0fanCeLNTqKJLDMeAfP03ekAUyQHYdBL A3DJLjXv0LYDIlW8PwuqDlrTnmmmAkBYXfUKORIS4XGTvlicSxoLCxbVcdKA24gKgoFL5WMu9WCpDdRW 6wzu2JtRMpZc9ESECmHl0LZINcGQCgWOKjGDN2JGWjGbPjSMstMQEmPPUkGRB8ARAhYSNuXP2LIdIbBM LhTFasFiWyYVGdDGZajn4VZJLwTPMgPNh8VTLmFASe YCMzSRaxRRViPACtNPS6APBiQJSqRV7CEmKhYAOhBJC8YBSmTWRvRWQrvf2LFBUvRBAzXkA6ElCjVKIm DYSlIYraEPGkTRIdWEL3BTHqGMFqAJ7JLbPmWPLoPUYvFZXdHLFlGEUtcw8BIUFuYHLnFxD6PYGnRZPi ZJWqPEysHJKlGGF1HrR7BXSkMHEgGI0OTqXjORHpHE E1ERRgUJNzUIPyfi3XLKCmQMWuIJaiTAKxAESlECViWEasURMoMVR7DCkhLDSeTKHbOV5DUkHyFCOlIR K4MGvaHAGdNFZztj0SXHRxUMLuWgGaXKRoUTKnHNCnINovSMNlEEC2ACJ0AAKaROCuRH9ONbSjVHLzMW nuOZRgUMDfWUVpgn8DPYEcFSRzQmJvMLIfPPYkIPBr MTmbSVQhQAX9CMCtVVRjVHQrKF6YUqZnUMAvRVd0GTBxIUCyYDQawk3UNYKdITGdHWR1LUDuGRAeRVDc EQj5zaGwtIEdMHo2QL6YP7YhvmUaDvELTa6Ds017TLGhQUYjYj2ZN9ntOu7zCUMvYWTWTn6JPKh7TcGc FQqhAJr2GzP7JMCuEIj3MPZkF0XgKGN6MDVwOEC+ID usE1SmUAE2TIfnMujcHLOoUPQ9LtRzAXA3Ilt9YCD2WM8yDNQCWx4+NWybkJGmeDggCYMEQmQ1NpV4LE rmMNQHRn3N ID Date Data Source [id number] 02/22/2021 05:43:55 PM EDT [facility] XR SHOULDER COMPLETE [id number] RESULTIn terpreted by:Sharan Rea MDMCLAREN OAKLAND SHOULDERCLINICAL STATEMENT: Status post left shoulder arthroplasty.TECHNIQUE: 2 views of the left shoulder. COMPARISON: 12/26/2020.FINDINGS: The patient is status post total left shoulder arthroplasty. The hardware appears intact and properly aligned. No acute periprosthetic fracture or dislocation is identified. No abnormal lucency is demonstrated, to suggest loosening or infection. The soft tissues appear unremarkable.IMPRESSION: Since 12/26/2020, No significant interval change.Status post total left shoulder arthroplasty, with stable postoperative changes. This document has been electronically signed by Sharan Rea MD on 02/22/2021 5:41 PM Name Value Range Interpretation Code Description Data Deanna rce(s) Supporting Document(s) ID Date Data Source [id number] 01/31/2021 07:15:05 AM EDT [facility], PCName: Gregory VillalpandoDOB: 1960Provider: Gregory KelleyDOS: 01/30/2021 Reason For VisitSchoco Villalpando is here today for Right Knee. Gregory had his second Covid vaccine on . Gregory Villalpando is an established patient here for follow up. W.C. DOI: 01/20/2018. Surgery DOS: 01/26/20. Surgery Description: R TKA. (Cloth Booker). Patient is retired. History of Present IllnessThis 60-year-old male presents for follow-up of his right knee and Scheduled Loss of Use. Worker's Compensation injury 01/20/18. He was last seen in the office by Jayna Wright on 06/06/10. He underwent right total knee replacement on 01/26/20. Results/DataX-rays: AP, lateral and sunrise views of the right knee were ordered, taken and interpreted by me today. They reveal that overall alignment of the total knee implant appears to be excellent. This is a posterior-stabilized Triathlon Amos implant. A staple from the prior operative procedure is noted in the medial tibial plateau, which is unchanged from prior x-rays. AssessmentRight total knee replacement with arthrofibrosisFrom my standpoint, he has reached maximum medical improvement. There are no findings of instability of the knee.Using the Worker's Compensation Guidelines, table 7.5: Average range of motion is approximately 87 degrees, with -5 degrees of extension. No evidence of laxity. No significant leg length discrepancy noted. 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 In view of these findings, I feel that he has a fair result, with Scheduled Loss of Use of approximately 45%.He is retired and has 0% disability. Work / School NoteThe incident described by the patient is a competent medical cause of this injury. The patient's complaints are consistent with the history of the injury/illness. The patient's history of the injury/illness is consistent with my objective findings. The percentage of temporary impairment is 0%. The patient is not working at this time. Signatures Electronically signed by : Waleska Westfall, ; Jan 30 2021 11:13AM EST Electronically signed by : Greogry Kelley M.D.; Jan 31 2021 7:15AM EST Name Value Range Interpretation Code Description Data Deanna rce(s) Supporting Document(s) ID Date Data Source [id number] 12/26/2020 05:42:57 PM EDT [facility] XR SHOULDER COMPLETE [id number] RESULTIn terpreted by:Sharan Rea MDLE SHOULDERCLINICAL STATEMENT: Status post left shoulder arthroplasty.TECHNIQUE: 2 views of the left shoulder. COMPARISON: 12/09/2020.FINDINGS: The patient is status post total left shoulder arthroplasty. The hardware appears intact and properly aligned. No acute periprosthetic fracture or dislocation is identified. No abnormal lucency is demonstrated, to suggest loosening or infection. The soft tissues appear unremarkable.IMPRESSION: Since 12/09/2020, No significant interval change.Status post total left shoulder arthroplasty, with stable postoperative changes. This document has been electronically signed by Sharan Rea MD on 12/26/2020 5:40 PM Name Value Range Interpretation Code Description Data Deanna rce(s) Supporting Document(s) ID Date Data Source [id number] 12/26/2020 10:03:50 AM EDT [facility] Name Value Range Interpretation Code Description Data Deanna rce(s) Supporting Document(s) Progress Note [facility] HAIFEr0mKvAJBuTy28/LBWkiCISqe1QsPHqjJYz1FNtvQGKhY4UjRIL2xL2nMBB5RMrUUnAgGtZsTnRi [facility] [file] AgICAgICAgICAgICAgICAgICAgICAgICAgICAgICAgICAgICAgICAgICAgICAgICAgICANCiAgICAgIC AgICAgICAgICAgICAgICAgICAgICAgICAgICAgICAg ICAgICAgICAgICAgICAgICAgICAgICAgICAgICAgICAgICAgICAgICAgICAgICAgICAgICAgICAgICAg ICANCiAgICAgICAgICAgICAgICAgICAgICAgICAgICAgICAgICAgICAgICAgICAgICAgICAgICAgICAg ICAgICAgICAgICAgICAgICAgICAgICAgICAgICAgIC AgICAgICAgICAgICANCiAgICAgICAgICAgICAgICAgICAgICAgICAgICAgICAgICAgICAgICAgICAgIC AgICAgICAgICAgICAgICAgICAgICAgICAgICAgICAgICAgICAgICAgICAgICAgICAgICAgICANCiAgIC AgICAgICAgICAgICAgICAgICAgICAgICAgICAgICAg ICAgICAgICAgICAgICAgICAgICAgICAgICAgICAgICAgICAgICAgICAgICAgICAgICAgICAgICAgICAg ICAgICANCiAgICAgICAgICAgICAgICAgICAgICAgICAgICAgICAgICAgICAgICAgICAgICAgICAgICAg ICAgICAgICAgICAgICAgICAgICAgICAgICAgICAgIC AgICAgICAgICAgICAgICANCiAgICAgICAgICAgICAgICAgICAgICAgICAgICAgICAgICAgICAgICAgIC AgICAgICAgICAgICAgICAgICAgICAgICAgICAgICAgICAgICAgICAgICAgICAgICAgICAgICAgICANCi AgICAgICAgICAgICAgICAgICAgICAgICAgICAgICAg ICAgICAgICAgICAgICAgICAgICAgICAgICAgICAgICAgICAgICAgICAgICAgICAgICAgICAgICAgICAg ICAgICAgICANCiAgICAgICAgICAgICAgICAgICAgICAgICAgICAgICAgICAgICAgICAgICAgICAgICAg ICAgICAgICAgICAgICAgICAgICAgICAgICAgICAgIC AgICAgICAgICAgICAgICAgICANCiAgICAgICAgICAgICAgICAgICAgICAgICAgICAgICAgICAgICAgIC AgICAgICAgICAgICAgICAgICAgICAgICAgICAgICAgICAgICAgICAgICAgICAgICAgICAgICAgICAgIC ANCjw/zEEtK8jnqHToadW7M2rzOw5DDv3DFN2qb1Ss LPNkZBdhazVgZpzEGtPdMNRdGksUDuo3DGexSF0AvPLoI3VaR9JmLQepDD4XSDTxUCWlrTSwIQUuOVKg GmA5HNLqZNcfCD1MaSTfWUrrTLSrGDUiVW1YBFIiE515kaKiTX5GVk6MViHnFZ1kwg3VHOxtGPUaTadD Qow3TDjoRL7HdJVpuRIaBWMuLXBBJqSkB5fom7PdIa XkIECOWEfsWY5Bl7DzwBWqXIf+Jq4JAR8gw5IbIXwsBIOnLM4anu7MPMfBPcObT0LfyKwzKADlb8qyQZ OzSO3frWLbRVR8KDNvzl3ghQl4MHAFi53idhpmJyVxEAZtJc7pSp5vSVYoQVG4VpJjSECQCA4XFLNxZP CzlFLxMBXjTMUUKV2AHIotFVW6KDHmgrOpsFAcTXps PD9PDHFsqtShFNlmBISTXHm+Uf4ITO1xd2ZxQDpvGXKeHK9xmo0VWRnBYfNhB0K1kWXdF1R2CWoiTo1I NRKvTMXhGPklDTEFVCsyJQ5VXN9saqN1GV8YpBUoUEHxOWYdaYYbOFz3H58rzDQuYQpfDP2BVLO+Lizz+ Zc7SOIDuSWAjLAAhVlRcGJZNJqEsC6DzJ1ODm6UwX3 BeDL58uBqqtrSlRGfbRI4IVB0yLGHnMHXOKL7NpWTbiH1zkrWvCPEoIEYDJeAfI83ewAPsPXWzAPW4ZH ZpEo9CNCAlV4UomrGvqIfnabBsCDZkQGIQGY4UZUzqnlTqgKIpgJarKM62eCpwNK8PGm2YYuJxOT8ahf 0EkBYtAo5KUXKvYi9SCNPnPWHbBPFcPTJ1ZQFwDcFf STgvOJSxUDXtXLP0MOZbHTCwMK5XFzIcDJElAYv0GUApLXDmOUEnkf5AYGBrRVNbMCqcMXHgCEKhZAGs ZEyyGNQrXAQjZZC4HEOcJPBmQQ0OCtVgARXjIKM4HVTmWAYnIMYvni4CVLXvOROwYdPqHBRrCWVvOCWk CCbmXTGkSEWvSFf3BZKhASYbMZ6GLgBfQKNrPVKcMy SdAUPmNUFbxy6YYVOuGVCoIMQ3OZIkIBSnKXObTTugDLMoVAC1DxWfIGVeMEDiDD9BQtRmRLTpUUB2CF BnPSTxZAKquv6EQXDlAYDuKXufWzCePFBiAVHaUTheCVYiJPB5UYK1WNOsMCYnSK1YAdIfRZZyOPweUn KrJXBsRRLwrw0IDNBaHYGkTwK1NnTyGNKgBXKnZUot WCStFUR9XFCeSBAzXCKjWA4SWtMlKAUwOKz4ZuewXXYiTBSncv0JSSZoRGAhOZM6SACwHASuZIWzHWaa CWNxLDM0RIP4SCYgSSTqII3GEmCzYIBfZWi8SpaiKEMpADCaov9PDSTfEQOtOGDmQfBxOPMvPNFmMHv6 kqKftUFeRJa2ID3QL6NwpgYiXdFQPv2Ua321HVAhLZ XvVf4SS4chKh8wIEEoUTLLAd5NRDz5SPifLJNnN8RtK8GcZlB2NeNiCPZ9MJN4AfDhAFKnXBH+IDw1OG E1VaWbWhDsVtElMKr6D0M6OAA0Jaf8ULTkMeWzAI6mOQGZRq3+DQpzdGFydHhyZWYNCjIwMjcxDQolJU VPRg0K ID Date Data Source [id number] 12/18/2020 12:00:39 PM EDT [facility] Name Value Range Interpretation Code Description Data Deanna rce(s) Supporting Document(s) Operative Note [facility] DZKMTp4yHyKKMmVq07/HXLtyYYUft3BkROabAHi3FRdkUZXcL2OrSHH3sA2rTRG3XToLDoGwFmFsCiZ8 lbm [file] ICAgICAgICAgICAgICAgICAgICAgICAgICAgICAgICAgICAgICAgICAgICAgICAgICAgICAgICAgICAg DQogICAgICAgICAgICAgICAgICAgICAgICAgICAgIC AgICAgICAgICAgICAgICAgICAgICAgICAgICAgICAgICAgICAgICAgICAgICAgICAgICAgICAgICAgIC AgICAgICAgICAgDQogICAgICAgICAgICAgICAgICAgICAgICAgICAgICAgICAgICAgICAgICAgICAgIC AgICAgICAgICAgICAgICAgICAgICAgICAgICAgICAg ICAgICAgICAgICAgICAgICAgICAgDQogICAgICAgICAgICAgICAgICAgICAgICAgICAgICAgICAgICAg ICAgICAgICAgICAgICAgICAgICAgICAgICAgICAgICAgICAgICAgICAgICAgICAgICAgICAgICAgICAg ICAgDQogICAgICAgICAgICAgICAgICAgICAgICAgIC AgICAgICAgICAgICAgICAgICAgICAgICAgICAgICAgICAgICAgICAgICAgICAgICAgICAgICAgICAgIC AgICAgICAgICAgICAgDQogICAgICAgICAgICAgICAgICAgICAgICAgICAgICAgICAgICAgICAgICAgIC AgICAgICAgICAgICAgICAgICAgICAgICAgICAgICAg ICAgICAgICAgICAgICAgICAgICAgICAgDQogICAgICAgICAgICAgICAgICAgICAgICAgICAgICAgICAg ICAgICAgICAgICAgICAgICAgICAgICAgICAgICAgICAgICAgICAgICAgICAgICAgICAgICAgICAgICAg ICAgICAgDQogICAgICAgICAgICAgICAgICAgICAgIC AgICAgICAgICAgICAgICAgICAgICAgICAgICAgICAgICAgICAgICAgICAgICAgICAgICAgICAgICAgIC AgICAgICAgICAgICAgICAgDQogICAgICAgICAgICAgICAgICAgICAgICAgICAgICAgICAgICAgICAgIC AgICAgICAgICAgICAgICAgICAgICAgICAgICAgICAg ICAgICAgICAgICAgICAgICAgICAgICAgICAgDQogICAgICAgICAgICAgICAgICAgICAgICAgICAgICAg ICAgICAgICAgICAgICAgICAgICAgICAgICAgICAgICAgICAgICAgICAgICAgICAgICAgICAgICAgICAg KCAfAXKsNRZuUAi1E7irWXCuGVAtSG9nAHp3Cm0+DQ vGQxRxDOA4ivOklP1QBM5pk6ZwKQulEQVwc9MpOMt9XV5SDOScBGmzVL5KKCulyx5KZJQuRNFmpBGAx9 krNvChTJC2IYJrCdpvCW0IKRXqP2htfiAnCAUrXSYLSJhjEGLCLY9DTsUaE8YbrO58PRRMYl0+DQplbm ZhHlpXYcD6SRHng0PlBKw2BZ9RYLVyAgzmm8DtPlYr TQSYCPlrMD3LIOV6WJFkSKRgUl3JZZUmV108unXcRL6SGb7EOgHmNN2bdj2MSqUnFQSrCosIImu0THfz TM5GjSZpOVbLbWFdOKXwxyCzAl16TLObcFBQLFQvyxFJGKDodOVlknhmJPYyUGHzNa8qBL7oCRPtJEN8 FgG7JMPHNA2YAPJtTCEcrJMiPLHxINIFEE3XOVjaLV R9KLMthpSnfNFsRRicXD5VQGLrtqXeFUaqUAUHUQf+Cg6MHX8po2EbCTpjWDOaFF8svg8EDGxAMlXzL9 B1nVJlT3B8UMynQc6KANZtBQIeQJcqHCATXCemYS4MBS9ovtR9VG4WxKNwAJKxYZJieXGwFMn2B86zcM IqCVbuRI4XSOW+Lizz+Pe8DBSXqJITaDBDbBcVkLCKL OvQtO6UgY4SQu5HeK2SfYV29hTjfejDoQAztUF4WLD6mBMXjFBMTLZ5DwTEgeE4hwrMwNNHqPLOTLeGg Y34zkICzNXBiSBO5KDCsMp6GXXOzY4EmdmYfzAjasqZaSLVvIDISJF2OBNczlvNeySYxuCxjQJ71dDlg SF6KOk4LXgNyKU4hmk5MuSAqVz3SHCNoEq0XJEWbSJ LkHIVvOSR6GBLmDeFqPEmmJOLxIQIdBGA0KSOzNEEtIY9UUhDgMHRgZKOpTDFfBEKgDWSkec8IEBIaQR PiTTw0PHKcTDTrAMZnHVfxCXYyNQHsNXN5MTWuBJMwGH3AGhFeDRZaYQW5AQofNJRbINJlmd2QADOnLN XlYcM7UWHkXPNzOZShVZxnAFUwTVZ2ZVv0SKTqIGKi VL6ZSbEfWZOeNVHqJNQvVNEuXOCrqp6KSUQsFRLtMfJ0BTGtVKGpTGZwUXucODZjUXG3HfE4FNNrSXMm BE2SZuWzZMMeIXc6CzugCOYjZKSggb6ZBYNsTBUqJFY1EyGcBSDmXNZmEZmgPRXhRPD7Wno4CSDmPWSv RO0RXuDaDUVsTGj6ZNxxLZNyIJZkuk2EBQGsUOEqFT f9LwLlEYKiUJAsCBowSTMuQFRzVSD3IQQgKTWrBE5OKuWwGONcAJLeGlptIPPnFJPszb2TDJRjCNFyZZ F7WMPkBDEyGNLzWUyjXYFsSAVgEHd2LOTyPSDaWG2MTeObETGzDVSeFaEfJUNgPDYjrf3DPAKoKCKjPx EnBQHeYOYzNMLcVJs3ddLsuJWoUFj9MH0CB2VxwqXd LsCAYo4Cx908TDDaGLCfNw1TW7dvEk6mDQTcJHROPc1OWBx2WBnoH6WpDwo2STIuQ6RoHhIwAUIwOpC9 MzJmNzAzMmI+CKc8IOMySaPnPEy3QURyIHBbG2HbCxS6JpcwNsL7FUAfXv7gXNHUKx0+DQpzdGFydHhy VJSVQqQbRJZ6PNggMSYFKd3H ID Date Data Source [id number] 12/13/2020 08:10:10 PM EDT [facility] Name Value Range Interpretation Code Description Data Deanna rce(s) Supporting Document(s) Discharge Summary [facility] HOAWNs2nPbNWRoCs56/QLCdqYQNuc5UpWZczLKk8QDciMMPqG7DiJZU1nW1yUIT7MEnRHvFkDwMzTfL1 lbm [file] AwMDAwMjgwNiAwMDAwMCBuDQowMDAwMDAzMDEwIDAw YXRjWI1GYnPlOSRjQFL1DPSqRNLbXREmic0ARMFdKDBqRkGqLIVgTUJvLGHmCIcrIVCxUGO1Zhq7SQJi BYOeIA2RZyRzWPIlKQr6MViaRQQzDBFvwo3MAIQyBUCoVWBwBYUqUYBzFNKhLGewSPHiZXP9ZPY0MQTp JNBiCP5JKxFqHNHbTWI1XPMwLDAfRTNums7RCMPcAP RxSES2PaTfMALvGHXmSOeyQPSsRLJeLEK2WGAqGBIiEF8WSzObONUbWRT6BkMdZBIwTJBuxf5QNMGnPD UaYfYnGrGaJXUkBIIcBNleBNKnEZHlYaJ7MQGmZZHkTO8INlFxZZNmECQfBiJeBBMyGWIlnr0OTHWyZB CnGsX3HgWfKRRxJXQoWTroEJUiBVEtYVL9SEObRMNc NR5GKtRpOBHrNVh5OEEtGEBaYGEdyq8UZDKyTVZiNNsfFCXwTLDmMUOgBLjxNRWyNYV3NDJjNITdEUTe PB3JRpIyXYHsWVezRGSmNBUgUZJmnn3QQMNcHBAjKUJfVtGzDLKmTNJzUDwkQYVgJHP6SaK1FWTzXWOb BV2GTfSoBPMeShYuYVKjPFCwIWZuid7LJRWuKRUsKB F3SqDkOEGbINIqMPidYZYuNROtQZU3LVHlUVJtVR4YQfKxXLxgBOOOMgg2SLpoT7l9VVJxIL2MO7Uej4 JhRdMuJNMVQZcrRI4ufhFxGHLfVe3LQ9vDKflsZ6H7JTQyPwD0AGFiKgB7WocfFCN5KGp4IPZ4NiNqRN 8sAVXoNTMkIbL3HeolPUFxGDm1ZZJ8OPAmHVekCQIo TAIqXsVoEK7CXp8IBbI8LUM3sQZxZr6WUzK4BeGLQaDvJY7YUCe= ID Date Data Source [id number] 12/09/2020 10:49:00 AM EDT [facility] Name Value Range Interpretation Code Description Data Deanna rce(s) Supporting Document(s) SARS-CoV-2 RNA 2019 nCoV Real-Time RT-PCR: NOT DETECTED [facility] This lab was ordered by [facility] and reported by [facility]. ID Date Data Source [id number] 12/09/2020 12:48:14 PM EDT [facility] Service Cmnt XXX-Imp : NoneRespiratory P CR Panel : PCR ResultsMicroorganism XXX Cult : See Labs Tab for 2019 nCoV RT-PCR resultsHAdV DNA QI KATY+non-probe : Not DetectedHCoV 229ERNA Nph QI KATY+non-probe : Not DetectedHCoV ZSJ5HUJ Nph QI KATY+non-probe : Not WlvcwwknQGwRKE39 RNA Nph QI KATY+non-probe : Not RjwogwqpYXnYRR69 RNA Upper resp QI KATY+probe : Not DetectedhMPV RNA Nph QINAA+non-probe : Not DetectedRV+EV RNA Nph QI KATY+non-probe : Not DetectedFLUAV RNA Nph QI KATY+ non-probe : Not DetectedFLUBV RNA Nph QI KATY+non-probe : Not DetectedHPIV1 RNA NphQINAA+non-probe : Not DetectedHPIV2 RNA Nph QINAA+non-probe : Not DetectedHPVI3 RNA Nph KATY+non-probe : Not DetectedHPIV4 RNA Nph Q KATY+non-probe : Not DetectedRSV RNA Nph Q KATY+non-probe : Not DetectedB pert.PT PrmtNph Q KATY+non-probe : Not DetectedC pneum DNA Nph Q KATY+non-probe : Not DetectedM pneum DNA Nph Q KATY+non-probe : Not DetectedB tekjkLA337 DNA Nph KATY+non-probe : Not Detected Name Value Range Interpretation Code Description Data Deanna rce(s) Supporting Document(s) ID Date Data Source [id number] 12/09/2020 12:46:58 PM EDT [facility] Name Value Range Interpretation Code Description Data Deanna rce(s) Supporting Document(s) Specimen source [Identifier] of Unspecified specimen [facility] SARS-CoV-2 RNA 2019 nCoV Real-Time RT-PCR: NOT DETECTED [facility] Assay Performed [facility] Patients first test for [facility] Patient employed in healthcare setting [facility] Patient has symptoms related to [facility] When did you start to experience these symptoms [Date and time] [Phen X] [facility] Patient was hospitalized because of this condition [facility] patient was admitted to ICU for condition [facility] Patient resides in a congregate care setting [facility] status [facility] ID Date Data Source [id number] 12/09/2020 09:28:28 AM EDT [facility] XR SHOULDER 1 VIEW [id number] RESULTInte rpreted by:George Cavazos MDPortable left shoulder dated 12/09/2020.REASON FOR STUDY: Postop check.FINDINGS: A single AP study of the left shoulder was obtained with portable technique. The patient is status post reverse total shoulder arthroplasty. The prosthetic components appear to be well-seated and aligned on this single limited AP view. Expected perioperative soft tissue changes are seen about the left shoulder. A row skin mahogany is seen as well.IMPRESSION: Normal postoperative appearance of a left reverse TSA in a limited single AP view.This document has been electronically signed by George Cavazos MD on 12/09/2020 9:26 AM Name Value Range Interpretation Code Description Data Deanna rce(s) Supporting Document(s) ID Date Data Source [id number] 12/09/2020 06:16:05 AM EDT [facility] Name Value Range Interpretation Code Description Data Deanna rce(s) Supporting Document(s) History and Physical [facility] KJDADo0kAaYMLxAx32/PSCceWLMug1OzVHliWBr4OQdqUYCbB1CwKJH7kW2yVIZ9ODdJErXnWsNpOvT6 [facility] [file] AgICAgICAgICAgICAgICAgICAgICAgICAgICAgICAg ICAgICAgICAgICAgICAgICAgICAgICAgICAgICAgICAgICAgICAgICAgICAgICAgICAgICAgICAgICAg ICANCiAgICAgICAgICAgICAgICAgICAgICAgICAgICAgICAgICAgICAgICAgICAgICAgICAgICAgICAg ICAgICAgICAgICAgICAgICAgICAgICAgICAgICAgIC AgICAgICAgICAgICANCiAgICAgICAgICAgICAgICAgICAgICAgICAgICAgICAgICAgICAgICAgICAgIC AgICAgICAgICAgICAgICAgICAgICAgICAgICAgICAgICAgICAgICAgICAgICAgICAgICAgICANCiAgIC AgICAgICAgICAgICAgICAgICAgICAgICAgICAgICAg ICAgICAgICAgICAgICAgICAgICAgICAgICAgICAgICAgICAgICAgICAgICAgICAgICAgICAgICAgICAg ICAgICANCiAgICAgICAgICAgICAgICAgICAgICAgICAgICAgICAgICAgICAgICAgICAgICAgICAgICAg ICAgICAgICAgICAgICAgICAgICAgICAgICAgICAgIC AgICAgICAgICAgICAgICANCiAgICAgICAgICAgICAgICAgICAgICAgICAgICAgICAgICAgICAgICAgIC AgICAgICAgICAgICAgICAgICAgICAgICAgICAgICAgICAgICAgICAgICAgICAgICAgICAgICAgICANCi AgICAgICAgICAgICAgICAgICAgICAgICAgICAgICAg ICAgICAgICAgICAgICAgICAgICAgICAgICAgICAgICAgICAgICAgICAgICAgICAgICAgICAgICAgICAg ICAgICAgICANCiAgICAgICAgICAgICAgICAgICAgICAgICAgICAgICAgICAgICAgICAgICAgICAgICAg ICAgICAgICAgICAgICAgICAgICAgICAgICAgICAgIC AgICAgICAgICAgICAgICAgICANCiAgICAgICAgICAgICAgICAgICAgICAgICAgICAgICAgICAgICAgIC AgICAgICAgICAgICAgICAgICAgICAgICAgICAgICAgICAgICAgICAgICAgICAgICAgICAgICAgICAgIC ANCiAgICAgICAgICAgICAgICAgICAgICAgICAgICAg ICAgICAgICAgICAgICAgICAgICAgICAgICAgICAgICAgICAgICAgICAgICAgICAgICAgICAgICAgICAg ICAgICAgICAgICANCjw/bPLlA7kqvFThqyM4V0wcGv2PUx9YHI8ek3NnIHAoAOppsvSpLrtZOwHrUMUx LgaFOik1JSetRN4EgAJhJ8VaD1SyVLpxZR2ZHUYgMC AqcALuUKOwNLGzVkW7ZKEvAEkhDN8FnIRbNSpaFBJvSJOqPnWmRHTtVA9MEWRfM275whQoSy0VMb4AAi SuIS1hxg5SXTTpNWYwObaPJoc5FMgaMC1ZfYQosKDwLvErKDOHIiHhT3fcj6SqCVtfOWMRHSdbKB0Wk8 VudCAxDQo+Fq6GJC2lf7CnGIosXkAwFR2nxp7NSAqF SbClB8QhxGucSOnjKDWvaJAXDZXufhTPCOCkbNHmqlmhXEFmVQUqHq3xUB7pSQPdNDQ3OpY5EZTFQB8D EFTxYZJyaEOzRWPmNAGBTS4SANqaOWJ1MXEfnoPdmNOdNLkuMN6YRZSzyeOmHCGdVSRVIBy+Wn1IHB3k d2VvRWyjSIOyBD4jpr7YNLeQGnVrL7W9fLWcM0U2FZ vqOh0ZLOXyJNXpRITgCZKZHKdeBN8MZM0bksR0OK2PfIYvKVBbTCUdoDAuTWm7D70aaPAtJSxlKM5SLP A+Lizz+Cq9OQJScMCQmNKVoNnSzQEVRZhHcQ4OoB5DZv4MpC4XtVE69vZgctjYxQZtsNO3BHS6cHBXhHF BOXP1DsYHqnE8ggmAcAdZeLYSIAiMhC57moVItLHOx LYB6GCEoYb6DXJHqP3QxxjWjmFeopvTwYXQzCWUWSQ0PFRjqddCqqEHrlBxdID84pVfvUA0KKi7BCmFk KG1sfc3VnLGpSl1MIJUmST3NYSShWNYwLEDwOZH7AVItYyZjJWjkKLGbPZBvEDR7LRRsBBNlXX4WVbEo MXDnEBkcNBJdBYCvGERwpw5SXNQyVKBuUHAeCDBwIF PrREFmHVxuIWTdWQGkEVA5BPGnIBWzNE8HToIjNRBhPCQ5AIQySCNoCYNdyv1VBZRnTBZvGMFeNKTnVX TcKIThPHwtEHBhBWK9DRvsXHOsZHWdWE2PPjKmMITaIMH7XDWsLRDlOXXhel5GDOPoVEJdJvG5YcTiRV JnHLSxMRxxRUHoEDH7QUA8KCLiHKNxHX4TWhVsQRHi NDueKvVqETBqYZGmyu3MQGKlIVXqObh7PISiAXAhRGTzNMryGFFpQYV3RKyrYHIxARRhXK4YAxDfZPNc MMfiGfxyOMUbWGNrjo8RDEAmOGQiWCw1RSMaUHKzDQBvRLppEYSaTWNhPcO4VZCzAGMzBU8AIyRaKPLf BIJbDTwhBZWsFRNdxb6PNGMiLYXlSIEyKlHoKCOsEQ AbYEv8peTmaQHrSUz7JN8AY7KsmzAlDUxDWw2Jm177EKB7KDEjDt7XM2fdSf4lRGBsELWYNz3BZAt3MQ KgLbg2X0P6TzOwYdQ0FRS0WAlcTgVgP6FhISKfX6K+SHs6HvIqPxL4YjifSlM3ENKnHqB7APRpLjJ3RF O0MpFxNN0sBRAKOq5+NIfdwWJznLguOJRBOsLnZqvzKZgdWYTELw8K ID Date Data Source [id number] 12/12/2020 01:57:00 PM EDT [facility] Surgical Pathology ReportName: ST TOSHA VILLALPANDOMRN: [id number] Number: [id number] Date: 12/09/2020 00:00Received Date: 12/09/2020 11:14Physician(s): MEG SAUCEDA KEVIN JSpecimen(s) ReceivedA: Humeral headClinical HistoryPrimary osteoarthritis left shoulder.DiagnosisBONE, LEFT HUMERUS, ARTHROPLASTY: DEGENERATIVE JOINT DISEASE (GROSSONLY).Electronically Signed By Marilee Clifton M.D., Attending Pathologist12/12/2020 13:57:07Processed at [facility] at [facility], [address] [place] [address]. Unless 'gross-only' is specified, the finaldiagnosis is based on a microscopic examination of construction sales representative sectionsof tissue.Gross DescriptionThe specimen is received in formalin and labeled with the patient's name,"Timothy Villalpando" and "humeral head". It consists a 6.7 x 5.8 x 2.2 cmhemispherical portion of firm bone. The margin is linear. The articularsurface is martinez-pink, smooth, and focally eburnated. The cut surface isyellow, trabecular bone which is grossly devoid of lesions. Gross only. Nocassettes are submitted. CTC\\This report may include one or more immunohistochemical stain results thatuse analyte specific reagents. All positive and negative controls havebeen reviewed by the attending pathologist and are satisfactory. The testswere developed and their performance characteristics determined by [facility] Pathology department. They have not been cleared or approved by the USFood and Drug Administration. The FDA has determined that such clearanceor approval is not necessary. Name Value Range Interpretation Code Description Data Deanna rce(s) Supporting Document(s) ID Date Data Source [id number] 12/05/2020 08:21:00 AM EDT [facility] Name Value Range Interpretation Code Description Data Deanna rce(s) Supporting Document(s) SARS-CoV-2 RNA Resp Ql KATY+probe NOT DETECTED [facility] This lab was ordered by Uri and re ported by GIOVANI Saleh. ID Date Data Source [id number] 09/10/2020 06:51:19 PM EDT [facility] Name Value Range Interpretation Code Description Data Deanna rce(s) Supporting Document(s) Progress Note [facility] ZSWREo0lJrVCApJf57/VWNavMSZii7QlRFoqIFv9HXihVBTiE1ZlXTM1aQ4sTKS4RDtSAzIbHmJvNyC8 lbm [file] [id number]QkUqAVJqUdOK9CWRj= ID Date Data Source [id number] 06/14/2020 07:14:15 AM EST [facility] [facility] PCName: Gregory VillalpandoDOB: 1960Provider: [place] WrightS: 06/06/2020 Reason For VisitSchoco Villalpando is here today for Right Knee. Gregory Villalpando is an established patient here for follow up. WSandraCSandra DOI: 01/20/2018. Surgery DOS: 01/26/20. Surgery Description: R TKA. ([employer]). Patient is retired. History of Present IllnessGregory is here today for follow-up of his right total knee replacement. He does have a small distal stitch abscess from the absorbable suture does not look infected. The stitch was debrided and a Band-Aid was applied. His range of motion is 0 to 120 degrees. He does have some mild swelling present still. AssessmentRight total knee replacement improvingPlanWe discussed continue with nonimpact exercise. We discussed dental prophylaxis and travel concerns. We will see him back in January or sooner if needed. Work / School NoteThe incident described by the patient is a competent medical cause of this injury. The patient's complaints are consistent with the history of the injury/illness. The patient's history of the injury/illness is consistent with my objective findings. The percentage of temporary impairment is 0%. The patient is not working at this time. Gregory Villalpando is retired. He may be released to a full duty no restrictions he is retired at this time Signatures Electronically signed by : Jayna Wright NP; Jun 06 2020 9:32AM EST (Author) Electronically signed by : Gregory Kelley M.D.; Jun 14 2020 7:14AM EST Name Value Range Interpretation Code Description Data Deanna rce(s) Supporting Document(s) ID Date Data Source [id number] 05/09/2020 09:45:00 AM EST MEDENT ([facility]) Name Value Range Interpretation Code Description Data Deanna rce(s) Supporting Document(s) Surgical pathology study Laboratory test result MEDENT ([facility]) FINAL DIAGNOSIS Esophagus, below Z-line, biopsy: Junctional mucosa with mild chronic inflammation. No evidence for intestinal metaplasia or dysplasia. 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 All in one. -SV 05/09/20201442 Signed RORO ESTRELLA MD 05/11/2020 0839 ID Date Data Source [id number] 05/04/2020 01:10:00 PM EST [facility] Name Value Range Interpretation Code Description Data Deanna rce(s) Supporting Document(s) SARS coronavirus 2 RNA [facility] This lab was ordered by [facility] and reported by [facility]. ID Date Data Source [id number] 05/19/2020 08:42:36 AM EST [facility] PCName: Gregory KwasiDOB: 1960Provider: [place] Wright: 04/25/2020 Reason For VisitSchoco Villalpando is here today for Right Knee. Gregory Villalpando is an established patient here for follow up. Rodríguez DOI: 01/20/2018. Surgery DOS: 01/26/20. Surgery Description: R TKA. The patient has had a course of physical therapy for greater than 4 weeks. The patient has followed a home exercise program for greater than 4 weeks. Physical therapy and/or home exercise program has been effective. ([employer]). Patient is retired. History of Present IllnessThe patient is still struggling with pain, stiffness and weakness. He is here for follow-up of his right total knee replacement he is improving his range of motion is 0-120 he is working on strengthening. He presents today for further evaluation. Results/DataXRays previously taken were reviewed today. Side: Right Site: Knee Views: 3 Views, Standing AP, Lateral and Merchant's Findings: Satisfactory post-operative findings. hardware is in good position. no evidence of implant loosening. AssessmentRight total knee replacement improving.PlanHe will continue to work on range of motion and strengthening. We will see him back in 1 month's time for possible released to regular duty work at that time. We discussed dental prophylaxis and travel concerns. Plan Work Note WC (SOS) Treatment Treatment Status: Complete Done: 25Apr2020 Ordered;For: Encounter for long-term current use of medication, Health Maintenance; Ordered By: Jayna Wright Performed: Due: 09May2020; Last Updated By: Chelsi Vargas; 04/25/2020 2:34:43 PMCondition Due To Work Related Injury Of: : wc 01/20/18 rt kneeWorks Status : Not WorkingNext Appt : 6 wksSeen Today for Evaluation and Treatment : The patient was seen today in the office for evaluation and treatment. Work / School NoteThe incident described by the patient is a competent medical cause of this injury. The patient's complaints are consistent with the history of the injury/illness. The patient's history of the injury/illness is consistent with my objective findings. The percentage of temporary impairment is 100%. The patient is not working at this time. Signatures Electronically signed by : Jayna Wright NP; Apr 27 2020 1:53PM EST (Author) Electronically signed by : Gregory Kelley M.D.; May 03 2020 2:07PM EST Electronically signed by : Jayna Wright NP; May 18 2020 2:43PM EST (Author) Electronically signed by : Gregory Kelley M.D.; May 19 2020 8:42AM EST Name Value Range Interpretation Code Description Data Deanna rce(s) Supporting Document(s) ID Date Data Source [id number] 04/15/2020 10:33:57 AM EDT [facility] PCName: Gregory VillalpandoB: 1960Provider: BriannahumSudhakarMitch: 04/06/2020 Reason For VisitSOS Patient Intake: Gregory Villalpando is here today for Left Knee. Gregory Villalpando is a new patient. W.C. DOI: 11-26-2014. [facility] Occupation and Work Status: ([employer]). Patient is not working at this time due to unrelated issues. History of Present IllnessThiyolanda is a 59-year-old male, who presents with left knee discomfort, Workers' Compensation injury of 11/26/2014. He was cared for by an orthopedic group in [place] five years ago, by Dr. Ndiaye. He had a left knee arthroscopy performed and was known to have degenerative arthritis as well as meniscal pathology to his knee. Over time, he has had some intermittent complaints of pain and discomfort in his left knee. He did eventually end up with an arthroscopy with debridement, up in the [place] area, he states, which was helpful. He presents today with acute onset of pain and discomfort in his left knee. He was doing relatively well, was stepping out of a truck and had a slight twisting injury to his knee. Following this, he noted pain and discomfort along the medial aspect of his knee. Weightbearing became somewhat bothersome, not immediately but over the next number of days. He has now had the acute onset of increased swelling to his left knee and is seen today in the office. He is presently on Celebrex 200 mg daily. This was just recently reduced by his primary care [facility] secondary to his hypertension. He has had no fevers or chills, he has had no puncture wounds, no evidence of any insect bites and is seen today with pain and discomfort medialized with generalized discomfort over the anterior aspect of his knee with slight decreased range of motion. Results/DataX-rays ordered, visualized and interpreted today, four view, left knee, standing AP, lateral and sunrise as well as PA flexed both right and left knees. Right knee on the PA flexed reveals total knee replacement. Overall alignment appears to be adequate. No evidence of fracture or loosening. Left knee osteoarthritis severe medial, moderate lateral and moderate patellofemoral both medial and lateral facets. No evidence of fracture is noted to be present. AssessmentLeft knee genu varus deformity; severe degenerative arthritis medial compartment; primary osteoarthritis; mild quad atrophy. Plan X-Ray I Knee - 4+ views (XRays were ordered, obtained and interpreted today in theoffice. Indication: pain/dysfunction.); Status:Complete; Done: 06Apr2020 Perform:SOS28; Due:20Apr2020; Last Updated By:Breanne Luo; 04/06/2020 9:40:29 AM;Ordered; For:Left knee pain; Ordered By:Gregory Kelley;Weight Bearing Status : Weight bearingLaterality: : Left In reference to the left knee, he will continue with the Celebrex. He does have an ice machine at home secondary to his total knee replacement which he is still recovering from on his right side. I would recommend ice, elevation, modification of activity. Follow up again in a 2-3 week standpoint with Jayna. If unimproved, aspiration and intraarticular injection of Depo-Medrol would be appropriate. At this stage, he very well may improve just with some certain modification of activity. He presently is not working secondary to his right total knee replacement. From my standpoint, he has a 0% disability in reference to his left knee. Work / School NoteThe incident described by the patient is a competent medical cause of this injury. The patient's complaints are consistent with the history of the injury/illness. The patient's history of the injury/illness is consistent with my objective findings. The percentage of temporary impairment is 0%. The patient is not working at this time. Signatures Electronically signed by : Samina Ring, ; Apr 06 2020 11:07AM EST Electronically signed by : Gregory Kelley M.D.; Apr 15 2020 10:33AM EST Name Value Range Interpretation Code Description Data Deanna rce(s) Supporting Document(s) ID Date Data Source NT-PRO BNP 04/04/2020 07:53:49 AM EDT eCW1 ([facility]) Name Value Range Interpretation Code Description Data Deanna rce(s) Supporting Document(s) 23 NT-PRO BNP eCW1 ([facility]) ID Date Data Source UA URINALYSIS 04/04/2020 07:53:46 AM EDT eCW1 ([facility]) Name Value Range Interpretation Code Description Data Deanna rce(s) Supporting Document(s) UA URINALYSIS [facility]) ID Date Data Source [id number] 04/04/2020 07:53:43 AM EDT eCW1 ([facility]) Name Value Range Interpretation Code Description Data Deanna rce(s) Supporting Document(s) Albumin/Creatinine [Mass Ratio] in Urine 12.7 MALB URINE SIEMENS eCW1 [facility]) Microalbumin/Creatinine [Mass Ratio] in Urine 71.3 CREATININE, URINE eCW1 ([facility]) Microalbumin/Creatinine [Ratio] in Urine 17.8 ABHI/CREAT RATIO eCW1 ([facility]) ID Date Data Source CBC with Differential 04/04/2020 07:53:40 AM EDT eCW1 ([facility]) Name Value Range Interpretation Code Description Data Deanna rce(s) Supporting Document(s) 8.5 WHITE BLOOD COUNT [facility]) 15.0 HEMOGLOBIN eCW1 ([facility]) 48.7 HEMATOCRIT eCW1 ([facility]) 5.58 RED BLOOD COUNT eCW1 ([facility]) 26.9 MEAN CORPUSCULAR HEMOGLOBIN eC W1 ([facility]) 87.3 MEAN CORPUSCULAR VOLUME eCW1 ( [facility]) 30.8 MEAN CORPUSCULAR HGB CONC eCW1 ([facility]) 12.8 RED CELL DISTRIBUTION WIDTH eC W1 ([facility]) 60.0 NEUTROPHILS % eCW1 ([facility]) 350 PLATELET COUNT, AUTOMATED eCW1 ([facility]) 26.8 LYMPH % eCW1 ([facility]) 1.7 EOS % eCW1 ([facility]) 9.8 MONO % eCW1 ([facility]) 0.9 BASO % eCW1 ([facility]) 0.1 EOS # eCW1 ([facility]) 0.8 MONO # eCW1 ([facility]) 2.3 LYMPH # eCW1 ([facility]) 5.1 NEUTROPHILS # eCW1 ([facility]) 0.1 BASO # eCW1 ([facility]) ID Date Data Source Comprehensive Metabolic Profile (CMP) 04/04/2020 07:53:36 AM EDT eCW1 [facility]) Name Value Range Interpretation Code Description Data Deanna rce(s) Supporting Document(s) 91 GLUCOSE, FASTING eCW1 ([facility]) 17 BLOOD UREA NITROGEN eCW1 ([facility]) 138 SODIUM LEVEL eCW1 ([facility]) 5.4 POTASSIUM SERUM eCW1 ([facility]) > 60.0 GLOMERULAR FILTRATION RATE eCW 1 ([facility]) 0.94 CREATININE FOR GFR eCW1 ([facility]) 102 CHLORIDE LEVEL eCW1 ([facility]) 10.0 CALCIUM LEVEL eCW1 ([facility]) 29 CARBON DIOXIDE LEVEL eCW1 ([facility]) 30 AST/SGOT eCW1 ([facility]) 93 ALKALINE PHOSPHATASE eCW1 ([facility]) 0.3 BILIRUBIN,TOTAL eCW1 ([facility]) 77 ALT/SGPT eCW1 ([facility]) 7.8 TOTAL PROTEIN eCW1 ([facility]) 4.4 ALBUMIN eCW1 ([facility]) 1.3 ALBUMIN/GLOBULIN RATIO eCW1 ([facility]) ID Date Data Source [id number] 04/04/2020 07:53:22 AM EDT eCW1 ([facility]) Name Value Range Interpretation Code Description Data Deanna rce(s) Supporting Document(s) Hemoglobin A1c/Hemoglobin.total in Blood 5.4 HEMOGLOBIN A1c eCW1 ([facility]) Procedure Social History Code Duration Value Status Description Data Source(s ) Alcohol intake 02/22/2021 12:00:00 AM EDT Ex-drinker (finding) comp leted Ex- drinker (finding) [facility] Tobacco use and exposure 02/22/2021 12:00:00 AM EDT Never used co mpleted Never used [facility] Smoking 02/22/2021 12:00:00 AM EDT Never smoker completed Never s [facility] Smoking 01/30/2021 12:00:00 AM EDT Never Smoker completed Never S moker [facility] Smoking 01/30/2021 12:00:00 AM EDT Never Smoker completed Never S moker eCW1 ([facility]) Smoking 01/30/2021 12:00:00 AM EDT Never Smoker completed Never S moker eCW1 ([facility]) Smoking 01/30/2021 12:00:00 AM EDT Never Smoker completed Never S moker eCW1 ([facility]) Smoking 01/30/2021 12:00:00 AM EDT Never Smoker completed Never S moker eCW1 ([facility]) Smoking 01/30/2021 12:00:00 AM EDT Never Smoker completed Never S moker eCW1 ([facility]) Alcohol intake 12/26/2020 12:00:00 AM EDT Ex-drinker (finding) comp leted Ex- drinker (finding) [facility] Smoking 11/29/2020 12:00:00 AM EDT Never Smoker completed Never S moker eCW1 ([facility]) Smoking 11/29/2020 12:00:00 AM EDT Never Smoker completed Never S moker eCW1 ([facility]) Smoking 11/29/2020 12:00:00 AM EDT Never Smoker completed Never S moker eCW1 ([facility]) Smoking 11/29/2020 12:00:00 AM EDT Never Smoker completed Never S moker eCW1 ([facility]) Smoking 09/13/2020 12:00:00 AM EDT Never Smoker completed Never S moker eCW1 ([facility]) Smoking 09/13/2020 12:00:00 AM EDT Never Smoker completed Never S moker eCW1 ([facility]) Smoking 09/13/2020 12:00:00 AM EDT Never Smoker completed Never S moker eCW1 ([facility]) Smoking 09/13/2020 12:00:00 AM EDT Never Smoker completed Never S moker eCW1 ([facility]) Smoking 09/13/2020 12:00:00 AM EDT Never Smoker completed Never S moker eCW1 ([facility]) Smoking 09/13/2020 12:00:00 AM EDT Never Smoker completed Never S moker eCW1 ([facility]) Alcohol intake 09/08/2020 12:00:00 AM EDT Current drinker of al cohol (finding) completed Current drinker of alcohol (finding) [facility] Smoking 04/04/2020 12:00:00 AM EDT Never Smoker completed Never S moker eCW1 ([facility]) Smoking 04/04/2020 12:00:00 AM EDT Never Smoker completed Never S moker eCW1 ([facility]) Smoking 04/04/2020 12:00:00 AM EDT Never Smoker completed Never S moker eCW1 ([facility]) Smoking 04/04/2020 12:00:00 AM EDT Never Smoker completed Never S moker eCW1 ([facility]) Smoking 04/04/2020 12:00:00 AM EDT Never Smoker completed Never S moker eCW1 ([facility]) Smoking 04/04/2020 12:00:00 AM EDT Never Smoker completed Never S moker eCW1 ([facility]) Smoking 04/04/2020 12:00:00 AM EDT Never Smoker completed Never S moker eCW1 ([facility]) Smoking 04/04/2020 12:00:00 AM EDT Never Smoker completed Never S brian eCW1 ([facility]) Smoking 04/04/2020 12:00:00 AM EDT Never Smoker completed Never Yolanda torres eCW1 ([facility]) Vital Signs ID Date Data Source UNK Name Value Range Interpretation Code Description Data Source(s) Body height 70 [in_i] 70 [in_i] [facility] 5'10" Body weight 223.00 [lb_av] 223.00 [lb_av] MEDEN T ([facility]) Systolic blood pressure 130 mm[Hg] 130 mm[Hg] M EDENT ([facility]) Diastolic blood pressure 80 mm[Hg] 80 mm[Hg] MED[facility] ([facility]) Heart rate 77 /min 77 /min [facility] Body mass index (BMI) [Ratio] 32.0 kg/m2 32.0 k g/m2 MED[facility] ([facility]) Body weight 101.153 kg 101.153 kg [facility] ([facility] Body temperature 97.7 [degF] 97.7 [degF] MEDENT ([facility]) Body weight 227 [lb_av] 227 [lb_av] eCW1 ([facility]) Body weight 102.97 kg 102.97 kg eCW1 ([facility]) Body mass index (BMI) [Ratio] 32.57 kg/m2 32.57 kg/m2 eCW1 ([facility]) Heart rate 77 /min 77 /min eCW1 ([facility]) Respiratory rate 20 /min 20 /min eCW1 ([facility]) Body temperature 97.7 [degF] 97.7 [degF] eCW1 ( [facility]) Systolic blood pressure 130 mm[Hg] 130 mm[Hg] e CW1 ([facility]) Diastolic blood pressure 82 mm[Hg] 82 mm[Hg] eCW1 ([facility]) Body height 70 [in_i] 70 [in_i] eCW1 ([facility]) Body weight 227 [lb_av] 227 [lb_av] eCW1 ([facility]) Body height 70 [in_i] 70 [in_i] eCW1 ([facility]) Body mass index (BMI) [Ratio] 32.57 kg/m2 32.57 kg/m2 eCW1 ([facility]) Respiratory rate 20 /min 20 /min eCW1 ([facility]) Body temperature 97.9 [degF] 97.9 [degF] eCW1 ( [facility]) Systolic blood pressure 128 mm[Hg] 128 mm[Hg] e CW1 ([facility]) Heart rate 83 /min 83 /min eCW1 ([facility]) Diastolic blood pressure 78 mm[Hg] 78 mm[Hg] eCW1 ([facility]) Body weight 230.8 [lb_av] 230.8 [lb_av] eCW1 ([facility]) Body height 70 [in_i] 70 [in_i] eCW1 ([facility]) Body mass index (BMI) [Ratio] 33.11 kg/m2 33.11 kg/m2 eCW1 ([facility]) Heart rate 90 /min 90 /min eCW1 ([facility]) Respiratory rate 20 /min 20 /min eCW1 ([facility]) Body temperature 97.9 [degF] 97.9 [degF] eCW1 ( [facility]) Systolic blood pressure 130 mm[Hg] 130 mm[Hg] e CW1 ([facility]) Diastolic blood pressure 72 mm[Hg] 72 mm[Hg] eCW1 ([facility]) Body weight 226 [lb_av] 226 [lb_av] eCW1 ([facility]) Body height 70 [in_i] 70 [in_i] eCW1 ([facility]) Body mass index (BMI) [Ratio] 32.42 kg/m2 32.42 kg/m2 eCW1 ([facility]) Heart rate 93 /min 93 /min eCW1 ([facility]) Respiratory rate 18 /min 18 /min eCW1 ([facility]) Body temperature 98.5 [degF] 98.5 [degF] eCW1 ( [facility]) Systolic blood pressure 160 mm[Hg] 160 mm[Hg] e CW1 ([facility]) Diastolic blood pressure 98 mm[Hg] 98 mm[Hg] eCW1 ([facility]) Body weight 101.606 kg 101.606 kg [facility] ([facility] Body height 70 [in_i] 70 [in_i] [facility] 5'10" Body weight 224.00 [lb_av] 224.00 [lb_av] MEDEN T ([facility]) Systolic blood pressure 131 mm[Hg] 131 mm[Hg] M EDENT ([facility]) Diastolic blood pressure 96 mm[Hg] 96 mm[Hg] MEDENT ([facility]) Heart rate 85 /min 85 /min [facility] ([facility]) Body mass index (BMI) [Ratio] 32.1 kg/m2 32.1 k g/m2 MEDENT ([facility]) Body temperature 98.1 [degF] 98.1 [degF] MED[facility] ([facility]) ID Date Data Source [id number] 12/18/2020 12:00:39 PM EDT [facility] Name Value Range Interpretation Code Description Data Source(s) WEIGHT RECORDED 223.6 lb 223.6 lb [facility] Body height Measured 70 in 70 in [facility] ID Date Data Source [id number] 10/31/2020 03:31:15 PM EDT [facility] Name Value Range Interpretation Code Description Data Source(s) WEIGHT RECORDED 225 lb 225 lb [facility] Body height Measured 70 in 70 in [facility] Patient Treatment Plan of Care Planned Activity Planned Date Details Description Data Source (s) Acetaminophen 325 MG / Hydrocodone Bitartrate 5 MG Ora l Tablet 04/24/2021 12:00:00 AM EST eCW1 ([facility]) Acetaminophen 325 MG / Hydrocodone Bitartrate 5 MG Ora l Tablet 04/24/2021 12:00:00 AM EST eCW1 ([facility]) Acetaminophen 325 MG / Hydrocodone Bitartrate 5 MG Ora l Tablet 03/24/2021 12:00:00 AM EDT eCW1 ([facility]) Acetaminophen 325 MG / Hydrocodone Bitartrate 5 MG Ora l Tablet 02/23/2021 12:00:00 AM EDT eCW1 ([facility]) CPAP Machine 01/30/2021 12:00:00 AM EDT e CW[facility] CPAP mask 01/30/2021 12:00:00 AM EDT e CW1 ([facility]) CPAP mask 01/30/2021 12:00:00 AM EDT e CW1 ([facility]) CPAP Machine 01/30/2021 12:00:00 AM EDT e CW1 ([facility]) CPAP Machine 01/30/2021 12:00:00 AM EDT e CW1 ([facility]) CPAP mask 01/30/2021 12:00:00 AM EDT e CW1 ([facility]) CPAP Machine 01/30/2021 12:00:00 AM EDT e CW1 ([facility]) CPAP mask 01/30/2021 12:00:00 AM EDT e CW1 ([facility]) CPAP mask 01/30/2021 12:00:00 AM EDT e CW1 ([facility]) CPAP Machine 01/30/2021 12:00:00 AM EDT e CW1 ([facility]) CPAP mask 01/30/2021 12:00:00 AM EDT e CW1 ([facility]) CPAP Machine 01/30/2021 12:00:00 AM EDT e CW1 ([facility]) Acetaminophen 325 MG / Hydrocodone Bitartrate 5 MG Ora l Tablet 01/27/2021 12:00:00 AM EDT eCW1 ([facility]) Oxycodone Hydrochloride 5 MG Oral Tablet 01/16/2021 12:00:00 AM [facility] Oxycodone Hydrochloride 5 MG Oral Tablet 12/21/2020 12:00:00 AM [facility] Aspirin 81 MG Delayed Release Oral Tablet 12/09/2020 12:00:00 AM [facility] Acetaminophen 325 MG / Hydrocodone Bitartrate 5 MG Ora l Tablet 11/10/2020 12:00:00 AM EDT eCW1 ([facility]) Acetaminophen 325 MG / Hydrocodone Bitartrate 5 MG Ora l Tablet 10/13/2020 12:00:00 AM EDT eCW1 ([facility]) Acetaminophen 325 MG / Hydrocodone Bitartrate 5 MG Ora l Tablet 10/13/2020 12:00:00 AM EDT eCW1 ([facility]) CPAP mask 10/07/2020 12:00:00 AM EDT e CW1 [facility] CPAP Machine 10/07/2020 12:00:00 AM EDT e CW1 ([facility]) CPAP mask 10/07/2020 12:00:00 AM EDT e CW1 ([facility]) CPAP Machine 10/07/2020 12:00:00 AM EDT e CW1 ([facility]) CPAP mask 10/07/2020 12:00:00 AM EDT e CW1 ([facility]) CPAP Machine 10/07/2020 12:00:00 AM EDT e CW1 ([facility]) CPAP mask 10/07/2020 12:00:00 AM EDT e CW1 ([facility]) CPAP Machine 10/07/2020 12:00:00 AM EDT e CW1 ([facility]) Acetaminophen 325 MG / Hydrocodone Bitartrate 5 MG Ora l Tablet 09/13/2020 12:00:00 AM EDT eCW1 ([facility]) Acetaminophen 325 MG / Hydrocodone Bitartrate 5 MG Ora l Tablet 09/13/2020 12:00:00 AM EDT eCW1 ([facility]) Acetaminophen 325 MG / Hydrocodone Bitartrate 5 MG Ora l Tablet 09/13/2020 12:00:00 AM EDT eCW1 ([facility]) telmisartan 80 MG Oral Tablet 08/18/2020 12:00:00 AM [facility] Acetaminophen 325 MG / Hydrocodone Bitartrate 5 MG Ora l Tablet 08/15/2020 12:00:00 AM EST eCW1 ([facility]) Acetaminophen 325 MG / Hydrocodone Bitartrate 5 MG Ora l Tablet 08/15/2020 12:00:00 AM EST eCW1 ([facility]) Acetaminophen 325 MG / Hydrocodone Bitartrate 5 MG Ora l Tablet 07/19/2020 12:00:00 AM EST eCW1 ([facility]) Acetaminophen 325 MG / Hydrocodone Bitartrate 5 MG Ora l Tablet 06/16/2020 12:00:00 AM EST eCW1 ([facility]) Acetaminophen 325 MG / Hydrocodone Bitartrate 5 MG Ora l Tablet 06/16/2020 12:00:00 AM EST eCW1 ([facility]) Acetaminophen 325 MG / Hydrocodone Bitartrate 5 MG Ora l Tablet 04/21/2020 12:00:00 AM EST eCW1 ([facility]) Acetaminophen 325 MG / Hydrocodone Bitartrate 5 MG Ora l Tablet 04/21/2020 12:00:00 AM EST eCW1 ([facility]) telmisartan 80 MG Oral Tablet 04/04/2020 12:00:00 AM EDT [facility] telmisartan 80 MG Oral Tablet 04/04/2020 12:00:00 AM EDT [facility] ([facility] telmisartan 80 MG Oral Tablet 04/04/2020 12:00:00 AM EDT [facility]CW[facility] ([facility]) telmisartan 80 MG Oral Tablet 04/04/2020 12:00:00 AM EDT eCW1 ([facility]) telmisartan 80 MG Oral Tablet 04/04/2020 12:00:00 AM EDT eCW1 ([facility]) telmisartan 80 MG Oral Tablet 04/04/2020 12:00:00 AM EDT eCW1 ([facility]) telmisartan 80 MG Oral Tablet 04/04/2020 12:00:00 AM EDT eCW1 ([facility]) telmisartan 20 MG Oral Tablet 04/04/2020 12:00:00 AM EDT eCW1 ([facility]) telmisartan 20 MG Oral Tablet 04/04/2020 12:00:00 AM EDT eCW1 ([facility]) telmisartan 20 MG Oral Tablet 04/04/2020 12:00:00 AM EDT eCW1 ([facility]) telmisartan 20 MG Oral Tablet 04/04/2020 12:00:00 AM EDT eCW1 ([facility]) telmisartan 20 MG Oral Tablet 04/04/2020 12:00:00 AM EDT eCW1 ([facility]) telmisartan 20 MG Oral Tablet 04/04/2020 12:00:00 AM EDT eCW1 [facility])
[2021-05-22] MEDS ORDERED: fentaNYL 100 MCG/2 ML INJECTION (J3010) As Ordered ONE (09:54)
--- NOTE | 2021-05-22 10:05 | ROOR ---
Patient Name: Gregory Villalpando Procedure Date: 05/22/2021 9:40 AM Date of : 1960 Age: 61 Room: [facility] Gender: Male Note Status: Finalized Procedure: Upper Endoscopy + Biopsies Indications: Heartburn, Exclusion of Lau's esophagus Providers: Odell Quintero MD Referring MD: Mathew Rogers MD Requesting Provider: Medicines: Monitored Anesthesia Care Complications: No immediate complications. Procedure: Pre-Anesthesia Assessment: - The heart rate, respiratory rate, oxygen saturations, blood pressure, adequacy of pulmonary ventilation, and response to care were monitored throughout the procedure. The Endoscope was introduced through the mouth, and advanced to the second part of duodenum. The upper GI endoscopy was accomplished without difficulty. The patient tolerated the procedure well. Findings: The Z-line was variable and was found 45 cm from the incisors. Multiple biopsies were obtained with cold forceps for evaluation to rule out Lau's Esophagus randomly at the gastroesophageal junction. A medium-sized hiatal hernia was present. No other significant abnormalities were identified in a careful examination of the stomach. The exam of the duodenum was otherwise normal. Impression: - Z-line variable, 45 cm from the incisors. - Medium-sized hiatal hernia. - Multiple biopsies were obtained at the gastroesophageal junction. - The examination was otherwise normal. Recommendation: - Patient has a contact number available for emergencies. The signs and symptoms of potential delayed complications were discussed with the patient. Return to normal activities tomorrow. Written discharge instructions were provided to the patient. - High fiber diet. - Discharge patient to home. - Continue present medications. - Await pathology results. - Telephone GI clinic for pathology results in 1 week. - Follow an antireflux regimen. - The findings and recommendations were discussed with the patient. Procedure Code(s): --- Professional --- 21946, Esophagogastroduodenoscopy, flexible, transoral; with biopsy, single or multiple Diagnosis Code(s): --- Professional --- K22.8, Other specified diseases of esophagus K44.9, Diaphragmatic hernia without obstruction or gangrene R12, Heartburn CPT copyright 2019 [employer] [place] [employer]. All rights reserved. The codes documented in this report are preliminary and upon auto repair technician review may be revised to meet current compliance requirements. Odell Quintero MD Odell Quintero MD 05/22/2021 10:05:12 AM Electronically signed by Odell Quintero MD Number of Addenda: 0 Note Initiated On: 05/22/2021 9:40 AM Estimated Blood Loss: Estimated blood loss: none.
--- NOTE | 2021-05-22 10:30 | ROOR ---
Patient Name: Gregory Villalpando Procedure Date: 05/22/2021 9:41 AM Date of : 1960 Age: 61 Room: [facility] Gender: Male Note Status: Finalized Procedure: Total Colonoscopy to Cecum Indications: Colon cancer screening in patient at increased risk: Colorectal cancer in brother Providers: Odell Quintero MD Referring MD: Mathew Rogers MD Requesting Provider: Medicines: Monitored Anesthesia Care Complications: No immediate complications. Procedure: Pre-Anesthesia Assessment: - The heart rate, respiratory rate, oxygen saturations, blood pressure, adequacy of pulmonary ventilation, and response to care were monitored throughout the procedure. The Colonoscope was introduced through the anus and advanced to the cecum, identified by appendiceal orifice and ileocecal valve. The colonoscopy was performed without difficulty. The patient tolerated the procedure well. The quality of the bowel preparation was excellent. Findings: The perianal and digital rectal examinations were normal. Non-bleeding internal hemorrhoids were found during retroflexion. The hemorrhoids were small and Grade I (internal hemorrhoids that do not prolapse). Multiple small and large-mouthed diverticula were found in the recto-sigmoid colon, sigmoid colon and descending colon. The exam was otherwise without abnormality on direct and retroflexion views. Impression: - Non-bleeding internal hemorrhoids. - Diverticulosis in the recto-sigmoid colon, in the sigmoid colon and in the descending colon. - The examination was otherwise normal on direct and retroflexion views. - No specimens collected. - The exam was otherwise normal to the cecum. Recommendation: - Patient has a contact number available for emergencies. The signs and symptoms of potential delayed complications were discussed with the patient. Return to normal activities tomorrow. Written discharge instructions were provided to the patient. - Resume previous diet. - Continue present medications. - Repeat colonoscopy in 5 years for screening purposes. - Return to referring physician. - The findings and recommendations were discussed with the patient. Procedure Code(s): --- Professional --- G0105, Colorectal cancer screening; colonoscopy on individual at high risk Diagnosis Code(s): --- Professional --- Z80.0, Family history of malignant neoplasm of digestive organs K64.0, First degree hemorrhoids K57.30, Diverticulosis of large intestine without perforation or abscess without bleeding CPT copyright 2019 [employer]. All rights reserved. The codes documented in this report are preliminary and upon security incident handler review may be revised to meet current compliance requirements. Odell Quintero MD Odell Quintero MD 05/22/2021 10:29:44 AM Electronically signed by Odell Quintero MD Number of Addenda: 0 Note Initiated On: 05/22/2021 9:41 AM Estimated Blood Loss: Estimated blood loss: none.
[2021-05-22 10:45] VITALS: BP 135/91
== END 2021-05-22 10:57 | disposition home or self-care (01) ==
LOC: M OPP 08:16
PROVIDERS: ATTEND Internal Medicine Gastroenterology
DX: K63.5 Polyp of colon (principal); Z80.0 Family history of malignant neoplasm of digestive organs; K57.30 Diverticulosis of large intestine without perforation or abscess without bleeding; K64.0 First degree hemorrhoids; K22.89 Other specified disease of esophagus; K44.9 Diaphragmatic hernia without obstruction or gangrene; R12 Heartburn; Z85.01 Personal history of malignant neoplasm of esophagus; Z79.891 Long term (current) use of opiate analgesic; Z79.899 Other long term (current) drug therapy; Z87.891 Personal history of nicotine dependence
CPT/HCPCS: 43239; 45378; 88305; J3010

== ENCOUNTER → 2021-05-29 | Outpatient (CLI) | payer BC ==
[~2021-05-29] MED LIST changes: -LIDOCAINE 2% 100MG/5ML SDV (FOR ANES.) As Ordered ONE; -NS 1,000 ML IV ONE; -propofoL 200 MG/20 ML VIAL As Ordered ONE
== END ==
LOC: M LABSMTC 12:34
PROVIDERS: ATTEND Pediatrics
DX: Z20.822 Contact with and (suspected) exposure to COVID-19 (principal)
CPT/HCPCS: C9803; U0003

== ENCOUNTER → 2021-12-07 | Outpatient (CLI) | payer BC ==
[2021-12-07 11:02] LABS: BASO # 0.1 10^3/uL (0.0-0.2); BASO % 1.1 % (0.0-1.0); EOS # 0.2 10^3/uL (0.0-0.5); EOS % 2.6 % (0.0-3.0); HEMATOCRIT 47.8 % (42.0-52.0); HEMOGLOBIN 15.2 g/dl (13.5-17.5); LYMPH % 30.4 % (24.0-44.0); MEAN CORPUSCULAR HEMOGLOBIN 27.9 pg (27.0-33.0); MEAN CORPUSCULAR HGB CONC 31.8 g/dl (32.0-36.5); MEAN CORPUSCULAR VOLUME 87.9 fl (80.0-96.0); MONO # 0.7 10^3/uL (0.0-0.8); MONO % 10.3 % (2.0-8.0); NEUTROPHILS # 3.6 10^3/uL (1.5-8.5); NEUTROPHILS % 55.3 % (36.0-66.0); PLATELET COUNT, AUTOMATED 284 10^3/uL (150-450); RED BLOOD COUNT 5.44 10^6/uL (4.30-6.10); WHITE BLOOD COUNT 6.5 10^3/uL (4.0-10.0)
[2021-12-07 11:22] LABS: HEMOGLOBIN A1c 5.7 %
[2021-12-07 11:46] LABS: MAU/CREAT RATIO 21.2 MCG/MG (0.0-30.0)
[2021-12-07 11:48] LABS: ALBUMIN 4.4 GM/DL (3.2-5.2); ALT/SGPT 56 U/L (12-78); BILIRUBIN,TOTAL 0.4 MG/DL (0.2-1.0); BLOOD UREA NITROGEN 20 MG/DL (7-18); CALCIUM LEVEL 10.1 MG/DL (8.8-10.2); CARBON DIOXIDE LEVEL 31 MEQ/L (21-32); CHLORIDE LEVEL 107 MEQ/L (98-107); CREATININE FOR GFR 0.91 MG/DL (0.70-1.30); FERRITIN 160 NG/ML (26-388); FREE T4 0.97 NG/DL (0.76-1.46); GLOMERULAR FILTRATION RATE > 60.0 (>49); GLUCOSE, FASTING 94 MG/DL (70-100); NT-PRO BNP 17 PG/ML (<125); POTASSIUM SERUM 5.1 MEQ/L (3.5-5.1); SODIUM LEVEL 142 MEQ/L (136-145); TOTAL PROTEIN 7.7 GM/DL (6.4-8.2)
[2021-12-07 22:06] LABS: PTH INTACT 33.7 PG/ML (18.5-88.0); TOTAL 25(OH) VITAMIN D 32.2 NG/ML (30.0-100.0)
== END ==
LOC: M PLALAB 08:38
PROVIDERS: ATTEND Family Medicine
DX: I10 Essential (primary) hypertension (principal)

== ENCOUNTER → 2022-07-16 | Outpatient (CLI) | payer BC ==
[2022-07-16 10:55] LABS: ALBUMIN 4.3 G/DL (3.2-5.2); ALKALINE PHOSPHATASE 83 U/L (46-116); ALT/SGPT 46 U/L (7.0-40); AST/SGOT 26 U/L (<34); BILIRUBIN,TOTAL 0.4 MG/DL (0.3-1.2); BLOOD UREA NITROGEN 26 MG/DL (9-23); CALCIUM LEVEL 9.9 MG/DL (8.3-10.6); CARBON DIOXIDE LEVEL 31 MMOL/L (20-31); CHLORIDE LEVEL 103 MMOL/L (98-107); CHOLESTEROL LEVEL 154 MG/DL (<200); CHOLESTEROL RISK RATIO 3.11 (<5); CREATININE FOR GFR 0.87 MG/DL (0.70-1.30); GLOMERULAR FILTRATION RATE > 60.0 (>49); GLUCOSE, FASTING 90 MG/DL (74-106); HDL CHOLESTEROL 49.4 MG/DL (>40); LDL CHOLESTEROL 79.8 MG/DL (<100); NON-HDL-C 105 MG/DL; POTASSIUM SERUM 4.8 MMOL/L (3.5-5.1); SODIUM LEVEL 141 MMOL/L (136-145); TOTAL PROTEIN 7.3 G/DL (5.7-8.2); TRIGLYCERIDES LEVEL 124 MG/DL (<150)
[2022-07-16 11:21] LABS: HEMOGLOBIN A1c 5.6 % (4.0-6.0)
[2022-07-17 11:08] LABS: APOLIPOPROTEIN B/A-1 RATIO 0.6 ratio (0.0-0.7); H PYLORI SERUM QUANT IgG ABY 1.05 (0.00-0.79); INSULIN LEVEL 18.6 uIU/mL (2.6-24.9)
== END ==
LOC: M PLALAB 08:13
PROVIDERS: ATTEND Family Medicine
DX: R73.01 Impaired fasting glucose (principal); Z12.5 Encounter for screening for malignant neoplasm of prostate; E78.5 Hyperlipidemia, unspecified; K22.70 Barrett's esophagus without dysplasia
CPT/HCPCS: 36415; 80053; 80061; 82172; 83036; 83525; 86677; G0103

== ENCOUNTER → 2023-03-21 | Outpatient (CLI) | payer MEDICARE, BC ==
[2023-03-21 11:16] LABS: BASO # 0.1 10^3/uL (0.0-0.2); BASO % 0.7 % (0.0-1.0); EOS # 0.2 10^3/uL (0.0-0.5); EOS % 2.8 % (0.0-3.0); HEMATOCRIT 46.1 % (42.0-52.0); HEMOGLOBIN 15.1 g/dl (13.5-17.5); LYMPH # 2.3 10^3/uL (1.5-5.0); LYMPH % 33.5 % (24.0-44.0); MEAN CORPUSCULAR HEMOGLOBIN 29.3 pg (27.0-33.0); MEAN CORPUSCULAR HGB CONC 32.8 g/dl (32.0-36.5); MEAN CORPUSCULAR VOLUME 89.3 fl (80.0-96.0); MONO # 0.7 10^3/uL (0.0-0.8); MONO % 10.9 % (2.0-8.0); NEUTROPHILS # 3.5 10^3/uL (1.5-8.5); NEUTROPHILS % 51.8 % (36.0-66.0); PLATELET COUNT, AUTOMATED 304 10^3/uL (150-450); RED BLOOD COUNT 5.16 10^6/uL (4.30-6.10); WHITE BLOOD COUNT 6.8 10^3/uL (4.0-10.0)
[2023-03-21 11:31] LABS: ALBUMIN 4.2 G/DL (3.2-5.2); ALKALINE PHOSPHATASE 73 U/L (46-116); ALT/SGPT 28 U/L (7.0-40); AST/SGOT 20 U/L (<34); BILIRUBIN,TOTAL 0.4 MG/DL (0.3-1.2); BLOOD UREA NITROGEN 28 MG/DL (9-23); CALCIUM LEVEL 9.5 MG/DL (8.3-10.6); CARBON DIOXIDE LEVEL 31 MMOL/L (20-31); CHLORIDE LEVEL 105 MMOL/L (98-107); CHOLESTEROL LEVEL 145 MG/DL (<200); CHOLESTEROL RISK RATIO 2.87 (<5); CREATININE FOR GFR 0.91 MG/DL (0.70-1.30); FERRITIN 105.8 NG/ML (10.5-307.3); FREE T4 1.07 NG/DL (0.89-1.76); GLOMERULAR FILTRATION RATE > 60.0 (>49); GLUCOSE, FASTING 88 MG/DL (74-106); HDL CHOLESTEROL 50.4 MG/DL (>40); LDL CHOLESTEROL 67.8 MG/DL (<100); NON-HDL-C 94.6 MG/DL; POTASSIUM SERUM 5.2 MMOL/L (3.5-5.1); PTH INTACT 46.9 PG/ML (18.5-88.0); SODIUM LEVEL 140 MMOL/L (136-145); THYROID STIMULATING HORMONE 1.444 uIU/ML (0.55-4.78); TOTAL 25(OH) VITAMIN D 30.8 NG/ML (20.0-100.0); TOTAL PROTEIN 7.1 G/DL (5.7-8.2); TRIGLYCERIDES LEVEL 134 MG/DL (<150); VITAMIN B12 LEVEL 434 PG/ML (211-911)
[2023-03-21 11:33] LABS: HEMOGLOBIN A1c 5.5 % (4.0-6.0)
== END ==
LOC: M PLALAB 07:07
PROVIDERS: ATTEND Family Medicine
DX: I10 Essential (primary) hypertension (principal); D50.9 Iron deficiency anemia, unspecified; Z79.899 Other long term (current) drug therapy

== ENCOUNTER → 2023-08-22 | Outpatient (CLI) | payer MEDICARE, BC ==
[2023-08-22 10:50] LABS: HEMOGLOBIN A1c 5.6 % (4.0-6.0)
[2023-08-22 10:56] LABS: CREATININE, URINE 174.8 MG/DL; MAU/CREAT RATIO 6.8 MCG/MG (0.0-30.0)
[2023-08-22 10:57] LABS: PSA SCREENING 0.77 NG/ML (< 4.00)
[2023-08-22 10:59] LABS: ALBUMIN 3.9 G/DL (3.2-5.2); ALKALINE PHOSPHATASE 69 U/L (46-116); ALT/SGPT 37 U/L (7.0-40); AST/SGOT 17 U/L (<34); BILIRUBIN,TOTAL 0.4 MG/DL (0.3-1.2); BLOOD UREA NITROGEN 21 MG/DL (9-23); CALCIUM LEVEL 8.8 MG/DL (8.3-10.6); CARBON DIOXIDE LEVEL 31 MMOL/L (20-31); CHLORIDE LEVEL 108 MMOL/L (98-107); CREATININE FOR GFR 0.86 MG/DL (0.70-1.30); GLOMERULAR FILTRATION RATE > 60.0 (>49); GLUCOSE, FASTING 90 MG/DL (74-106); POTASSIUM SERUM 4.6 MMOL/L (3.5-5.1); SODIUM LEVEL 144 MMOL/L (136-145); TOTAL PROTEIN 6.9 G/DL (5.7-8.2)
== END ==
LOC: M PLALAB 07:08
PROVIDERS: ATTEND Family Medicine
DX: Z12.5 Encounter for screening for malignant neoplasm of prostate (principal)
CPT/HCPCS: 36415; 80053; 82043; 82172; 83010; 83036; 83525; 83880; 83883; 84155; 84165; G0103

== ENCOUNTER 2023-11-25 08:00 | Day surgery (SDC) | payer MEDICARE, BC ==
[~2023-11-25] VITALS: Ht 180.3 cm; Wt 96.1 kg
[~2023-11-25 08:00] MED LIST changes: +NS 1,000 ML IV ONE; -ROSU40TA4 PO; +ROSU40TA63 PO
[2023-11-25 08:07] VITALS: TEMP 97.1
[2023-11-25] MEDS ORDERED: propofoL 200 MG/20 ML VIAL As Ordered ONE (08:50)
[2023-11-25] MEDS ORDERED: LIDOCAINE 2% 100MG/5ML SDV (FOR ANES.) As Ordered ONE (08:50)
[2023-11-25 10:15] VITALS: BP 117/76; O2SAT 100
== END 2023-11-25 10:15 | disposition home or self-care (01) ==
LOC: M OPP 08:00
PROVIDERS: ATTEND Internal Medicine Gastroenterology
DX: Z12.11 Encounter for screening for malignant neoplasm of colon (principal); Z80.0 Family history of malignant neoplasm of digestive organs; D12.6 Benign neoplasm of colon, unspecified; K64.0 First degree hemorrhoids; K57.30 Diverticulosis of large intestine without perforation or abscess without bleeding; K22.89 Other specified disease of esophagus; K44.9 Diaphragmatic hernia without obstruction or gangrene; K22.70 Barrett's esophagus without dysplasia; Z09 Encounter for follow-up examination after completed treatment for conditions other than malignant neoplasm; K21.00 Gastro-esophageal reflux disease with esophagitis, without bleeding; I10 Essential (primary) hypertension; G47.30 Sleep apnea, unspecified; Z99.89 Dependence on other enabling machines and devices; Z79.02 Long term (current) use of antithrombotics/antiplatelets; Z79.891 Long term (current) use of opiate analgesic; Z79.899 Other long term (current) drug therapy

== ENCOUNTER → 2024-01-13 | Outpatient (REF) | payer MEDICARE, BC ==
[~2024-01-13] MED LIST changes: -NS 1,000 ML IV ONE
== END ==
LOC: M SFHCPLAZ 12:49
PROVIDERS: ATTEND Family Medicine
DX: K74.00 Hepatic fibrosis, unspecified (principal); E78.5 Hyperlipidemia, unspecified; R73.01 Impaired fasting glucose; I10 Essential (primary) hypertension

== ENCOUNTER → 2024-01-13 | Outpatient (CLI) | payer MEDICARE, BC ==
[2024-01-13 14:56] LABS: BASO # 0.1 10^3/uL (0.0-0.2); EOS # 0.1 10^3/uL (0.0-0.5); HEMATOCRIT 45.4 % (42.0-52.0); HEMOGLOBIN 14.4 g/dl (13.5-17.5); LYMPH # 2.2 10^3/uL (1.5-5.0); LYMPH % 31.3 % (24.0-44.0); MEAN CORPUSCULAR HEMOGLOBIN 28.5 pg (27.0-33.0); MEAN CORPUSCULAR HGB CONC 31.7 g/dl (32.0-36.5); MEAN CORPUSCULAR VOLUME 89.7 fl (80.0-96.0); MONO # 0.7 10^3/uL (0.0-0.8); MONO % 10.3 % (2.0-8.0); NEUTROPHILS # 3.9 10^3/uL (1.5-8.5); PLATELET COUNT, AUTOMATED 298 10^3/uL (150-450); RED BLOOD COUNT 5.06 10^6/uL (4.30-6.10); WHITE BLOOD COUNT 7.1 10^3/uL (4.0-10.0)
[2024-01-13 15:09] LABS: PARTIAL THROMBOPLASTIN TIME 32.3 SECONDS (24.8-34.2); PROTHROMBIN TIME 12.9 SECONDS (12.5-14.5)
[2024-01-13 15:25] LABS: HEMOGLOBIN A1c 5.6 % (4.0-6.0)
[2024-01-13 15:37] LABS: ALBUMIN 4.4 G/DL (3.2-5.2); ALKALINE PHOSPHATASE 65 U/L (46-116); ALT/SGPT 34 U/L (7.0-40); AST/SGOT 18 U/L (<34); BILIRUBIN,TOTAL 0.4 MG/DL (0.3-1.2); BLOOD UREA NITROGEN 17 MG/DL (9-23); CALCIUM LEVEL 9.7 MG/DL (8.3-10.6); CARBON DIOXIDE LEVEL 30 MMOL/L (20-31); CHLORIDE LEVEL 103 MMOL/L (98-107); CHOLESTEROL LEVEL 165 MG/DL (<200); CHOLESTEROL RISK RATIO 3.24 (<5); CREATININE FOR GFR 0.73 MG/DL (0.70-1.30); GLOMERULAR FILTRATION RATE > 60.0 (>49); GLUCOSE, FASTING 78 MG/DL (74-106); HDL CHOLESTEROL 50.8 MG/DL (>40); LDL CHOLESTEROL 76.4 MG/DL (<100); NON-HDL-C 114.2 MG/DL; SODIUM LEVEL 138 MMOL/L (136-145); TOTAL PROTEIN 7.3 G/DL (5.7-8.2); TRIGLYCERIDES LEVEL 189 MG/DL (<150)
[2024-01-13 15:39] LABS: FERRITIN 172.1 NG/ML (10.5-307.3)
== END ==
LOC: M PLALAB 13:30
PROVIDERS: ATTEND Family Medicine
DX: K74.00 Hepatic fibrosis, unspecified (principal); E78.5 Hyperlipidemia, unspecified; R73.01 Impaired fasting glucose; I10 Essential (primary) hypertension; Z80.0 Family history of malignant neoplasm of digestive organs

== ENCOUNTER → 2024-02-12 | Outpatient (CLI) | payer MEDICARE, BC | LOC: M RAD 08:54 | PROVIDERS: ATTEND Family Medicine | DX: K74.00 Hepatic fibrosis, unspecified (principal); K76.0 Fatty (change of) liver, not elsewhere classified; R16.0 Hepatomegaly, not elsewhere classified ==

== ENCOUNTER → 2024-04-30 | Outpatient (CLI) | payer MEDICARE, BC ==
[~2024-04-30] MED LIST changes: -ROSU40TA63 PO; +ROSU40TA81 PO
[2024-04-30 10:44] LABS: BASO # 0.1 10^3/uL (0.0-0.2); BASO % 1.2 % (0.0-1.0); EOS # 0.2 10^3/uL (0.0-0.5); EOS % 3.1 % (0.0-3.0); HEMOGLOBIN 14.8 g/dl (13.5-17.5); LYMPH # 2.2 10^3/uL (1.5-5.0); LYMPH % 28.6 % (24.0-44.0); MEAN CORPUSCULAR HEMOGLOBIN 28.8 pg (27.0-33.0); MEAN CORPUSCULAR HGB CONC 32.9 g/dl (32.0-36.5); MEAN CORPUSCULAR VOLUME 87.5 fl (80.0-96.0); MONO # 0.9 10^3/uL (0.0-0.8); NEUTROPHILS # 4.4 10^3/uL (1.5-8.5); NEUTROPHILS % 55.6 % (36.0-66.0); PLATELET COUNT, AUTOMATED 323 10^3/uL (150-450); RED BLOOD COUNT 5.14 10^6/uL (4.30-6.10); WHITE BLOOD COUNT 7.8 10^3/uL (4.0-10.0)
[2024-04-30 10:50] LABS: ALBUMIN 4.2 G/DL (3.2-5.2); ALKALINE PHOSPHATASE 66 U/L (40-129); ALT/SGPT 26 U/L (7.0-40); AST/SGOT 14 U/L (<34); BILIRUBIN,TOTAL 0.6 MG/DL (0.3-1.2); BLOOD UREA NITROGEN 21 MG/DL (9-23); CALCIUM LEVEL 10.4 MG/DL (8.3-10.6); CARBON DIOXIDE LEVEL 30 MMOL/L (20-31); CHLORIDE LEVEL 105 MMOL/L (98-107); CREATININE FOR GFR 0.78 MG/DL (0.70-1.30); GLOMERULAR FILTRATION RATE > 60.0 (>49); GLUCOSE, FASTING 97 MG/DL (74-106); POTASSIUM SERUM 4.8 MMOL/L (3.5-5.1); SODIUM LEVEL 141 MMOL/L (136-145); TOTAL PROTEIN 7.4 G/DL (5.7-8.2)
[2024-04-30 10:52] LABS: THYROID STIMULATING HORMONE 0.996 uIU/ML (0.55-4.78)
[2024-04-30 10:53] LABS: HEMOGLOBIN A1c 5.6 % (4.0-6.0)
[2024-04-30 11:15] LABS: CREATININE, URINE 126.4 MG/DL; MAU/CREAT RATIO 3.9 MCG/MG (0.0-30.0)
== END ==
LOC: M PLALAB 08:01
PROVIDERS: ATTEND Family Medicine
DX: I10 Essential (primary) hypertension (principal); E78.5 Hyperlipidemia, unspecified

== ENCOUNTER → 2024-05-05 | Outpatient (REF) | payer MEDICARE, BC | LOC: M SFHCPLAZ 10:14 | PROVIDERS: ATTEND Family Medicine | DX: D04.39 Carcinoma in situ of skin of other parts of face (principal) ==

== ENCOUNTER → 2025-05-03 | Outpatient (CLI) | payer MEDICARE, BC ==
[2025-05-03 11:42] LABS: BASO # 0.1 10^3/uL (0.0-0.2); BASO % 1.1 % (0.0-1.0); EOS # 0.2 10^3/uL (0.0-0.5); EOS % 3.2 % (0.0-3.0); LYMPH # 2.1 10^3/uL (1.5-5.0); LYMPH % 33.1 % (24.0-44.0); MONO # 0.7 10^3/uL (0.0-0.8); MONO % 11.3 % (2.0-8.0); NEUTROPHILS # 3.2 10^3/uL (1.5-8.5); NEUTROPHILS % 51.0 % (36.0-66.0); PLATELET COUNT, AUTOMATED 312 10^3/uL (150-450)
[2025-05-03 11:53] LABS: ALT/SGPT 26 U/L (7.0-40); AST/SGOT 20 U/L (<34); CALCIUM LEVEL 9.7 MG/DL (8.3-10.6); CARBON DIOXIDE LEVEL 32 MMOL/L (20-31); CHLORIDE LEVEL 100 MMOL/L (98-107); CHOLESTEROL LEVEL 160 MG/DL (<200); CHOLESTEROL RISK RATIO 3.10 (<5); CREATININE FOR GFR 0.90 MG/DL (0.70-1.30); GLOMERULAR FILTRATION RATE > 90.0 (>49); LDL CHOLESTEROL 78.7 MG/DL (<100); NON-HDL-C 108.5 MG/DL; POTASSIUM SERUM 4.7 MMOL/L (3.5-5.1); PSA SCREENING 0.58 NG/ML (< 4.00); PTH INTACT 39.0 PG/ML (18.5-88.0); SODIUM LEVEL 141 MMOL/L (136-145); TRIGLYCERIDES LEVEL 149 MG/DL (<150)
[2025-05-03 11:54] LABS: TOTAL 25(OH) VITAMIN D 35.5 NG/ML (20.0-100.0)
[2025-05-03 13:06] LABS: ESTIMATED AVERAGE GLUCOSE 123.0 MG/DL (60-110)
== END ==
LOC: M PLALAB 08:11
PROVIDERS: ATTEND Family Medicine
DX: I10 Essential (primary) hypertension (principal); E78.5 Hyperlipidemia, unspecified; Z12.5 Encounter for screening for malignant neoplasm of prostate; K74.00 Hepatic fibrosis, unspecified; R73.01 Impaired fasting glucose
CPT/HCPCS: 36415; 80053; 80061; 81517; 82306; 82728; 83036; 83880; 83970; 85025; G0103